=== PATIENT | male | born 1945 | race Hispanic/Latino ===

== ENCOUNTER 2020-05-10 06:59 | Inpatient (IN) | payer MEDICARE, OTHER ==
[2020-05-10 08:53] LABS: Troponin I 0.033 ng/mL (< 0.028)
[2020-05-10] MEDS ORDERED: Non-Formulary Item 1 EACH (Tramadol Hcl [Tramadol Hcl Er] 100 MG) PO PRN (10:48)
[2020-05-10] MEDS ORDERED: HumaLOG 300 UNITS/3 ML VIAL SC PRN (10:48)
[2020-05-10] MEDS ORDERED: Dextrose 50% Abboject 50 ML SYRINGE SLOW IVP PRN (10:48)
[2020-05-10] MEDS ORDERED: Ondansetron PF 4 MG/2 ML Vial IVP PRN (10:48)
[2020-05-10] MEDS ORDERED: Artificial Tear Sol 15 ML BOT FS PRN (10:48)
[2020-05-10] MEDS ORDERED: Ondansetron ODT 4 MG TAB PO PRN (10:48)
[2020-05-10] MEDS ORDERED: hydrALAZINE 20 MG/ML VIAL SLOW IVP PRN (10:48)
[2020-05-10] MEDS ORDERED: Acetaminophen 500 MG TAB PO PRN (10:48)
[2020-05-10] MEDS ORDERED: Dextrose 5% in Water 1,000 ML IV PRN (10:48)
[2020-05-10] MEDS ORDERED: Non-Formulary Item 1 EACH (Rosuvastatin Calcium [Crestor] 40 MG) PO SCH (11:00)
[2020-05-10] MEDS ORDERED: Carvedilol 6.25 MG TAB PO SCH (11:30)
[2020-05-10] MEDS ORDERED: Aspirin 81 mg Enteric Coated Tablet PO SCH (11:30)
[2020-05-10] MEDS ORDERED: Potassium Chloride 20 MEQ TAB PO SCH (11:30)
[2020-05-10] MEDS ORDERED: Icosapent Ethyl 1 GM CAPSULE PO SCH (11:30)
[2020-05-10] MEDS ORDERED: Apixaban 5 MG TAB PO SCH (11:30)
[2020-05-10] MEDS ORDERED: metFORMIN 850 MG TAB PO SCH ×2 (11:30→17:00)
[2020-05-10] MEDS ORDERED: Sacubitril 49 MG/Valsartan 51 MG TABLET PO SCH ×2 (11:30→21:00)
[2020-05-10] MEDS: HumaLOG 300 UNITS/3 ML VIAL SC PRN ×2 (11:38→17:25)
[2020-05-10 11:51] LABS: Troponin I 0.035 ng/mL (< 0.028)
--- NOTE | 2020-05-10 12:50 | HP ---
PRIMARY CARE PROVIDER: Dr. Rocky Thompson. PRIMARY FORENSICS ANALYST: Dr. Castro Monroe. CHIEF COMPLAINT: Shortness of breath. HISTORY OF PRESENT ILLNESS: This is a 74-year-old male, who presents to [facility] Emergency Department in transfer from [place] [facility] after the patient presented complaining of increasing shortness of breath over the last 1 to 2 weeks. The patient denied any travel history fever, chills, productive cough, or exposure history. The patient states he had a similar episode occurred in February 2020, presenting to the emergency room, receiving IV Lasix for heart failure exacerbation and released home. The patient states he was placed on oral Lasix, however, has run out of the medication over the last 1 to 2 weeks. The patient did state that he saw his director of curriculum and instruction, Dr. Monroe, but no specific change to his medication regimen was recommended. The patient admits he has been compliant with his chronic medication regimen and denies any dietary indiscretion. In the emergency room, the patient underwent general evaluation including chest imaging showing pulmonary edema with elevated BNP over 7000. The patient was previously noted with a BNP of 4000 on 03/11/2020. Treatment in the emergency room included IV Lasix 60 mg IV push x1 dose. PAST MEDICAL HISTORY: 1. Congestive heart failure, unknown type. 2. Hyperlipidemia. 3. Chronic obstructive pulmonary disease. 4. Diabetes mellitus type 2. 5. Chronic kidney disease stage 3. 6. Obstructive sleep apnea. 7. Hypertension. PAST SURGICAL HISTORY: 1. Status post left carotid endarterectomy. 2. Status post debridement of the right foot secondarily to osteomyelitis. CURRENT MEDICATIONS: Based on review of electronic medical record, 03/11/2020; 1. Tramadol 100 mg extended release one tablet daily p.r.n. 2. Trelegy one inhalation daily. 3. Vascepa 1 g p.o. b.i.d. 4. Crestor 40 mg p.o. daily. 5. Entresto 97/103 mg p.o. b.i.d. 6. Lantus 15 units subcutaneously b.i.d. 7. Metformin 850 mg p.o. b.i.d. 8. Carvedilol 6.25 mg p.o. b.i.d. 9. Eliquis 5 mg p.o. b.i.d. 10. Artificial Tears p.r.n. 11. Ozempic 0.25 mg subcutaneously weekly. 12. Mirtazapine 15 mg p.o. at bedtime. ALLERGIES: NO KNOWN DRUG ALLERGIES. FAMILY HISTORY: No inheritable diseases per patient report. SOCIAL HISTORY: Resides in [place], [place]. Retired. No current alcohol, tobacco, or illicit drug use. REVIEW OF SYSTEMS: CONSTITUTIONAL: Negative for weight loss or gain, ability to conduct usual activities. SKIN: Negative for rash, itching. EYES: Negative for double vision, pain. ENT/MOUTH: Negative for nose bleeding, neck stiffness, pain, tenderness. CARDIOVASCULAR: Negative for palpitations, dyspnea on exertion, orthopnea. RESPIRATORY: Negative for shortness of breath, wheezing, cough, hemoptysis, fever or night sweats. GASTROINTESTINAL: Negative for poor appetite, abdominal pain, heartburn, nausea, vomiting, constipation, or diarrhea. GENITOURINARY: Negative for urgency, frequency, dysuria, nocturia. MUSCULOSKELETAL: Negative for pain, swelling. NEUROLOGIC/PSYCHIATRIC: Negative for anxiety, depression. ALLERGY/IMMUNOLOGIC: Negative for skin rash, bleeding tendency. Otherwise, negative except as stated per HPI. PHYSICAL EXAMINATION: VITAL SIGNS: On admission, blood pressure 135/77, pulse 63, respiratory rate 20, temperature 96.4 degrees Fahrenheit, O2 saturation 98% on room air. GENERAL APPEARANCE: This is a 74-year-old male, alert and oriented x3, pleasant, responsive, in no acute distress. HEENT: Pupils are equal, round, reactive to light and accommodation. Extraocular muscles are intact. No scleral icterus. No conjunctival injection. Nares patent. OP is clear. Teeth in fair repair. NECK: Supple. No cervical adenopathy. No thyromegaly. No carotid bruits. No JVD appreciated. CERVICAL SPINE: With full active and passive range of motion. No meningeal signs noted. CHEST: Diminished breath sounds in the bases bilaterally with bibasilar crackles. CARDIOVASCULAR: S1, S2 without noted murmur, rub, or gallop. Heart sounds are distant. ABDOMEN: Rounded, soft, nontender, nondistended. Bowel sounds are positive in all 4 quadrants. There is no hepatosplenomegaly. No abdominal bruits. No rebound or guarding appreciated. EXTREMITIES: Warm and dry with fair turgor. No clubbing, cyanosis, or asymmetric edema appreciated. Pulses are palpable distally at the dorsalis pedis, posterior tibial, and popliteal arteries bilaterally. Capillary refill less than 2 seconds. NEUROLOGIC: Cranial nerves 2 through 12 are grossly intact. No focal or lateralizing signs appreciated. PERTINENT LABORATORY AND X-RAY FINDINGS: Sodium 139, potassium 4.2, chloride 107, CO2 of 21, BUN 36, creatinine 2.13, estimated GFR of 31, lactic acid level 1.9, calcium 9.0. Troponin I ranged between 0.026 to 0.043. BNP 7170, previously noted 4103 on 03/11/2020. CBC showed a white blood cell count of 7.4, hemoglobin 10, hematocrit 31, platelet count 134 with 74% neutrophils. D-dimer 0.81. EKG dated 05/10/2020, by my interpretation shows atrial fibrillation with rates in the 80s. Normal R-wave progression noted in the precordial leads. Incomplete left bundle-branch block pattern noted. Left axis deviation. Portable chest x-ray dated 05/10/2020 showed pulmonary edema. ASSESSMENT AND PLAN: 1. Acute on chronic congestive heart failure. The patient will be admitted to the telemetry unit. We will obtain 2D transthoracic echocardiogram to further delineate an accurate ejection fraction. Continue Lasix 40 mg IV b.i.d. Consult Cardiology Service in the a.m. for any further recommendations. Check TSH and magnesium level in the a.m. Serial I's and O's and daily weights. 2. Acute hypoxic respiratory failure secondarily to #1. Continue management as outlined in #1. Oxygen as needed to maintain O2 saturations greater than or equal to 90%. 3. Acute kidney injury on chronic kidney disease stage 3. Avoid nephrotoxic agents and limit contrast exposure. Serial creatinine monitoring. 4. Diabetes mellitus type 2, insulin requiring. Insulin sliding scale for reflexive coverage. Confirm home diabetic regimen. Serial Accu-Cheks before meals and at bedtime. ADA diet. 5. Chronic anticoagulation. Continue Eliquis 5 mg p.o. b.i.d. 6. Prophylaxis. SCDs while in bed. Pepcid 20 mg p.o. b.i.d. 7. Code status is full. Surrogate medical decision maker is the patient's spouse. Job ID: [id number]
[2020-05-10] MEDS: Furosemide 40 MG/4 ML VIAL SLOW IVP SCH (13:30)
--- NOTE | 2020-05-10 15:29 | CON ---
DATE OF CONSULTATION: REASON FOR CONSULTATION: Acute on chronic systolic heart failure. PRIMARY ROLLER SHOP SUPERVISOR: Castro Monroe MD HISTORY OF PRESENT ILLNESS: Mr. Almonte is a pleasant 74-year-old gentleman who has been seen and evaluated by Dr. Castro Monroe. He has a history of cardiomyopathy, status post ICD. He states he recently ran out of his medications. He had lower extremity edema as well as increased shortness of breath. He was given Lasix with marked improvement. No chest pain, pressure, syncope, presyncope, or other associated symptoms. PAST MEDICAL HISTORY: Diabetes mellitus, hypertension, hyperlipidemia, mitral regurgitation, cardiomyopathy, atrial fibrillation, chronic kidney disease, ICD. HOME MEDICATIONS: Include, 1. Spironolactone. 2. Klor-Con. 3. Vascepa. 4. Crestor. 5. Eliquis. 6. Entresto. 7. Coreg. 8. Metformin. PAST SURGICAL HISTORY: Foot surgery. SOCIAL HISTORY: No current tobacco or alcohol use. REVIEW OF SYSTEMS: A 10-point review of systems is reviewed as above, otherwise negative. PHYSICAL EXAMINATION: GENERAL: Patient is a pleasant male who is in no acute distress. The patient appears their stated age. VITAL SIGNS: Blood pressure 155/76, pulse 95, temperature 97.4. NEUROLOGIC: The patient is alert and oriented x3 with no focal neurologic deficits. HEENT: Sclerae without icterus. Mouth has moist mucous membranes with normal pallor. NECK: No JVD. Carotid upstroke brisk. No bruits bilaterally. LUNGS: Crackles noted bilaterally. BACK: No scoliosis or kyphosis. CARDIAC: Regular rate and rhythm with normal S1 and S2. No S3 or S4 noted. No significant rubs, murmurs, thrills, or gallops noted throughout the precordium. PMI is not displaced. There is no parasternal heave. ABDOMEN: Soft, nontender, nondistended. No peritoneal signs present. No hepatosplenomegaly. No abnormal striae. EXTREMITIES: 2+ femoral and 2+ dorsalis pedis pulses. No cyanosis, clubbing, or edema. SKIN: No gross abnormalities. PERTINENT LABORATORIES: Troponin 0.033. CO2 of 21; creatinine 2.13, which is up from 1.68. BNP of 7169. IMPRESSION: 1. Acute on chronic systolic heart failure. 2. Atrial fibrillation. 3. Status post implantable cardioverter defibrillator. RECOMMENDATIONS: Continue Eliquis in addition to aspirin and carvedilol. Continue Lasix IV b.i.d. Consider increasing if [id number] response or add Zaroxolyn. Given renal insufficiency, we would discontinue metformin due to potential for lactic acidosis. Further recommendations per Dr. Castro Monroe in a.m. Job ID: [id number]
[2020-05-10] MEDS: Icosapent Ethyl 1 GM CAPSULE PO SCH (17:00)
[2020-05-10] MEDS ORDERED: ICOSAPENT ETHYL 1 GM PO SCH (17:00)
[2020-05-10] MEDS ORDERED: Non-Formulary Item 1 EACH (Sacubitril/Valsartan [Entresto 97 Mg-103 Mg Tablet] 1 EACH) PO SCH (21:00)
[2020-05-10] MEDS ORDERED: Famotidine 20 MG TAB PO SCH (21:00)
[2020-05-10] MEDS: Mirtazapine 15 MG TAB PO SCH (21:34)
[2020-05-10] MEDS: Famotidine 20 MG TAB PO SCH (21:34)
[2020-05-10] MEDS: Apixaban 5 MG TAB PO SCH (21:34)
[2020-05-10] MEDS: Carvedilol 6.25 MG TAB PO SCH (21:36)
[2020-05-11 04:36] LABS: #Eosinphils 0.1 thou/uL (0.0-0.7); #Lymphocytes 1.8 thou/uL (1.20-3.40); #Neutrophils 5.3 thou/uL (1.40-6.50); %Basophils 0.1 % (0.0-1.0); %Eosinophils 1.4 % (0.0-10.0); %Lymphocytes 21.7 % (21.0-51.0); %Monocytes 11.8 % (0.0-10.0); %Neutrophils 65.1 % (42.0-75.0); Hemoglobin 11.5 g/dL (14.0-18.0); Mean Corpuscular HGB CONC 32.6 g/dL (32.0-36.0); Mean Corpuscular Hemoglobin 29.6 pg (27.0-31.0); Mean Corpuscular Volume 90.7 fL (78.0-98.0); Mean Platelet Volume 9.6 fL (7.4-10.4); Platelet Count 186 thou/uL (130-400); RBC Distribution Width 13.3 % (11.5-14.5); Red Blood Cell (RBC) Count 3.87 mill/uL (4.70-6.10); White Blood Cell (WBC) Count 8.1 thou/uL (4.8-10.8)
[2020-05-11 05:00] LABS: Anion Gap 13 mmol/L (10-20); BUN (Urea Nitrogen) 36 mg/dL (8.4-25.7); Calc. Creatinine Clearance 32 mL/min (70-130); Calcium 9.5 mg/dL (7.8-10.44); Carbon Dioxide 22 mmol/L (23-31); Chloride 104 mmol/L (98-107); Estimated GFR-MDRD 35; Glucose 153 mg/dL (83-110); Magnesium 1.7 mg/dL (1.6-2.6); Potassium 3.4 mmol/L (3.5-5.1); Sodium 136 mmol/L (136-145)
[2020-05-11] MEDS: Furosemide 40 MG/4 ML VIAL SLOW IVP SCH (05:15)
[2020-05-11 05:21] VITALS: BMI 20.2
--- NOTE | 2020-05-11 08:03 | PDOC.HOSPP ---
- Subjective Encounter Date: 05/11/20 Encounter Time: 08:01 Subjective: much better, SOB resolved - Objective Vital Signs & Weight: Vital Signs (12 hours) Temp Pulse Resp BP BP Pulse Ox 05/11/20 03:50 98.1 F 90 24 H 136/81 100 05/11/20 00:27 97 05/10/20 21:36 114/54 L 05/10/20 21:24 97.9 F 78 20 114/54 L 97 Weight Weight 132 lb 12.8 oz I&O: 05/10/20 05/11/20 05/12/20 06:59 06:59 06:59 Intake Total 1240 Output Total 4120 Balance -2880 Result Diagrams: 05/11/20 04:19 05/11/20 04:19 Additional Labs: Accuchecks 05/11/20 05/10/20 05/10/20 05:31 20:04 16:29 POC Glucose 153 H 177 H 172 H 05/10/20 11:34 POC Glucose 267 H Hospitalist ROS - Medication Medications: Active Medications Generic Name Dose Route Start Last Admin Trade Name Freq PRN Reason Stop Dose Admin Apixaban 5 mg 05/10/20 21:00 05/10/20 21:34 Eliquis PO 5 mg BID DEV Administration Carvedilol 6.25 mg 05/10/20 21:00 05/10/20 21:36 Coreg PO Not Given BID DEV Famotidine 20 mg 05/10/20 21:00 05/10/20 21:34 Pepcid PO 20 mg 2100 DEV Administration Furosemide 40 mg 05/10/20 14:00 05/11/20 05:15 Lasix SLOW IVP 40 mg 0600,1400 DEV Administration Insulin Human Lispro 0 units 05/10/20 10:48 05/10/20 17:25 Humalog SC 2 unit .MILD SLIDING SCALE PRN Administration Mild Correctional Scale Mirtazapine 15 mg 05/10/20 21:00 05/10/20 21:34 Remeron PO 15 mg HS DEV Administration Miscellaneous Medication 1 gm 05/10/20 17:00 05/10/20 17:00 Vascepa PO 1 gm BID-WM DEV Administration Sacubitril/Valsartan 2 tab 05/10/20 21:00 05/10/20 21:34 Entresto 49 Mg-51 Mg Tablet PO 2 tab BID DEV Administration - Exam General Appearance: awake alert Neck: no JVD Heart: no murmur, irregular Respiratory: CTAB Gastrointestinal: soft, non-tender, normal bowel sounds Extremities: no edema Hosp A/P (1) Acute on chronic systolic (congestive) heart failure Code(s): I50.23 - ACUTE ON CHRONIC SYSTOLIC (CONGESTIVE) HEART FAILURE Status : Acute (2) COPD (chronic obstructive pulmonary disease) Status: Chronic Qualifiers: Emphysema type: unspecified (3) Afib Code(s): I48.91 - UNSPECIFIED ATRIAL FIBRILLATION Status: Chronic (4) Diabetes Code(s): E11.9 - TYPE 2 DIABETES MELLITUS WITHOUT COMPLICATIONS Status: Chronic Qualifiers: Diabetes mellitus type: type 2 Diabetes mellitus longterm insulin use: with intermission coordinator use Diabetes mellitus complication status: with kidney complications Diabetes mellitus complication detail: with chronic kidney disease Chronic kidney disease stage: stage 3 (moderate) Qualified Code(s): E11.22 - Type 2 diabetes mellitus with diabetic chronic kidney disease; N18.3 - Chronic kidney disease, stage 3 (moderate); Z79.4 - shelter (current) use of insulin (5) HTN (hypertension) Code(s): I10 - ESSENTIAL (PRIMARY) HYPERTENSION Status: Chronic Qualifiers: Hypertension type: essential hypertension Qualified Code(s): I10 - Essential (primary) hypertension - Plan transition lasix to po cont coreg/entresto hold mtformin, cont accu/ss/insulin anticipate early discharge
[2020-05-11] MEDS ORDERED: Spironolactone 25 MG TAB PO SCH (08:45)
[2020-05-11] MEDS ORDERED: Non-Formulary Item 1 EACH (Fluticasone/Umeclidin/Vilanter [Trelegy Ellipta 100-62.5-25] 1 IH SCH (09:00)
[2020-05-11] MEDS ORDERED: traMADol HCl 50 MG TAB PO PRN (09:00)
[2020-05-11] MEDS: Potassium Chloride 20 MEQ TAB PO SCH (09:32)
[2020-05-11] MEDS: Aspirin 81 mg Enteric Coated Tablet PO SCH (09:33)
[2020-05-11] MEDS: Apixaban 5 MG TAB PO SCH ×2 (09:33→21:48)
[2020-05-11] MEDS: predniSONE 20 MG TAB PO SCH (09:33)
[2020-05-11] MEDS: Carvedilol 6.25 MG TAB PO SCH ×2 (09:33→21:49)
[2020-05-11] MEDS: Sacubitril 49 MG/Valsartan 51 MG TABLET PO SCH ×2 (09:33→21:49)
[2020-05-11] MEDS: Icosapent Ethyl 1 GM CAPSULE PO SCH ×2 (09:34→17:10)
[2020-05-11] MEDS: Insulin Glargine 17 UNITS in Pre-Filled Syringe 1 EACH SC SCH (09:34)
[2020-05-11] MEDS: Furosemide 20 MG TAB PO SCH (09:38)
[2020-05-11] MEDS: HumaLOG 300 UNITS/3 ML VIAL SC PRN ×3 (12:09→21:50)
[2020-05-11 12:27] LABS: SARS-CoV-2 MS2 Positive; SARS-CoV-2 N Gene Negative; SARS-CoV-2 S Gene Negative; SARS-CoV-2 by NAA Not Detected (NotDetected); SARS-CoV-2 orf1ab Negative
[2020-05-11] MEDS ORDERED: Mometasone 100 MCG/PUFF (1 INHALER) INH SCH (18:30)
[2020-05-11] MEDS ORDERED: Rosuvastatin 20 MG TAB PO SCH (21:00)
[2020-05-11] MEDS: Famotidine 20 MG TAB PO SCH (21:48)
[2020-05-11] MEDS: Mirtazapine 15 MG TAB PO SCH (21:49)
[2020-05-12] MEDS ORDERED: Spironolactone 25 MG TAB PO SCH (08:00)
[2020-05-12] MEDS: Apixaban 5 MG TAB PO SCH ×2 (09:05→20:50)
[2020-05-12] MEDS: Furosemide 20 MG TAB PO SCH (09:05)
[2020-05-12] MEDS: Aspirin 81 mg Enteric Coated Tablet PO SCH (09:05)
[2020-05-12] MEDS: Carvedilol 6.25 MG TAB PO SCH ×2 (09:05→20:50)
[2020-05-12] MEDS: predniSONE 20 MG TAB PO SCH (09:05)
[2020-05-12] MEDS: Potassium Chloride 20 MEQ TAB PO SCH (09:05)
[2020-05-12] MEDS: Sacubitril 49 MG/Valsartan 51 MG TABLET PO SCH (09:06)
[2020-05-12] MEDS: Insulin Glargine 17 UNITS in Pre-Filled Syringe 1 EACH SC SCH (09:07)
--- NOTE | 2020-05-12 09:16 | PDOC.HOSPP ---
- Subjective Encounter Date: 05/12/20 Encounter Time: 09:14 Subjective: no sob or edema, comfortable - Objective Vital Signs & Weight: Vital Signs (12 hours) Temp Pulse Resp BP BP Pulse Ox 05/12/20 07:04 97.6 F 82 18 110/55 L 96 05/12/20 04:00 97.9 F 78 17 101/56 L 94 L 05/11/20 21:49 116/54 L 05/11/20 21:43 97.4 F L 95 20 116/54 L 98 Weight Weight 132 lb 11.2 oz I&O: 05/11/20 05/12/20 05/13/20 06:59 06:59 06:59 Intake Total 1240 720 Output Total 4120 850 Balance -2880 -130 Result Diagrams: 05/11/20 04:19 05/11/20 04:19 Additional Labs: Accuchecks 05/12/20 05/11/20 05/11/20 05:46 20:16 16:07 POC Glucose 152 H 361 H 210 H 05/11/20 10:27 POC Glucose 340 H Hospitalist ROS - Medication Medications: Active Medications Generic Name Dose Route Start Last Admin Trade Name Freq PRN Reason Stop Dose Admin Apixaban 5 mg 05/10/20 21:00 05/12/20 09:05 Eliquis PO 5 mg BID DEV Administration Aspirin 81 mg 05/11/20 09:00 05/12/20 09:05 Ecotrin PO Not Given DAILY DEV Carvedilol 6.25 mg 05/10/20 21:00 05/12/20 09:05 Coreg PO 6.25 mg BID DEV Administration Famotidine 20 mg 05/10/20 21:00 05/11/20 21:48 Pepcid PO 20 mg 2100 DEV Administration Furosemide 20 mg 05/11/20 09:00 05/12/20 09:05 Lasix PO 20 mg QAM DEV Administration Insulin Glargine 17 units/ 0.17 mls @ 0 mls/hr 05/11/20 09:00 05/12/20 09:07 Miscellaneous Medication SC 0.17 mls QAM DEV Administration Insulin Human Lispro 0 units 05/10/20 10:48 05/11/20 21:50 Humalog SC 6 unit .MILD SLIDING SCALE PRN Administration Mild Correctional Scale Mirtazapine 15 mg 05/10/20 21:00 05/11/20 21:49 Remeron PO 15 mg HS DEV Administration Miscellaneous Medication 1 gm 05/10/20 17:00 05/11/20 17:10 Vascepa PO 1 gm BID-WM DEV Administration Trelegy Ellipta 100- 0 each 05/12/20 09:00 05/12/20 09:06 62.5-25 INH 1 each DAILY DEV Administration Potassium Chloride 20 meq 05/11/20 09:00 05/12/20 09:05 K-Dur PO 20 meq DAILY DEV Administration Prednisone 20 mg 05/11/20 08:00 05/12/20 09:05 Prednisone PO 20 mg QAM-WM DEV Administration Rosuvastatin Calcium 40 mg 05/11/20 21:00 05/11/20 21:49 Crestor PO 40 mg MoThFr@2100 DEV Administration Sacubitril/Valsartan 1 tab 05/11/20 09:00 05/12/20 09:06 Entresto 49 Mg-51 Mg Tablet PO 1 tab BID DEV Administration Spironolactone 25 mg 05/12/20 08:00 05/12/20 09:05 Aldactone PO 25 mg QAM-WM DEV Administration - Exam General Appearance: awake alert Neck: no JVD Heart: RRR Respiratory: CTAB Gastrointestinal: soft, normal bowel sounds Extremities: no edema Hosp A/P (1) Acute on chronic systolic (congestive) heart failure Code(s): I50.23 - ACUTE ON CHRONIC SYSTOLIC (CONGESTIVE) HEART FAILURE Status : Acute (2) COPD (chronic obstructive pulmonary disease) Status: Chronic Qualifiers: Emphysema type: unspecified (3) Afib Code(s): I48.91 - UNSPECIFIED ATRIAL FIBRILLATION Status: Chronic Qualifiers: Atrial fibrillation type: unspecified Qualified Code(s): I48.91 - Unspecified atrial fibrillation (4) Diabetes Code(s): E11.9 - TYPE 2 DIABETES MELLITUS WITHOUT COMPLICATIONS Status: Chronic Qualifiers: Diabetes mellitus type: type 2 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 insulin use: with correction use Diabetes mellitus complication status: with kidney complications Diabetes mellitus complication detail: with chronic kidney disease Chronic kidney disease stage: stage 3 (moderate) Qualified Code(s): E11.22 - Type 2 diabetes mellitus with diabetic chronic kidney disease; N18.3 - Chronic kidney disease, stage 3 (moderate); Z79.4 - rodent exterminator (current) use of insulin (5) HTN (hypertension) Code(s): I10 - ESSENTIAL (PRIMARY) HYPERTENSION Status: Chronic Qualifiers: Hypertension type: essential hypertension Qualified Code(s): I10 - Essential (primary) hypertension - Plan continue lasix to po cont coreg/entresto hold mtformin, cont accu/ss/insulin discuss with Dr Monore
[2020-05-12 09:19] LABS: Anion Gap 15 mmol/L (10-20); BUN (Urea Nitrogen) 49 mg/dL (8.4-25.7); Calc. Creatinine Clearance 23 mL/min (70-130); Calcium 9.3 mg/dL (7.8-10.44); Carbon Dioxide 22 mmol/L (23-31); Chloride 101 mmol/L (98-107); Estimated GFR-MDRD 26; Glucose 290 mg/dL (83-110); Potassium 3.7 mmol/L (3.5-5.1); Sodium 134 mmol/L (136-145)
[2020-05-12] MEDS: Icosapent Ethyl 1 GM CAPSULE PO SCH ×2 (09:42→16:32)
[2020-05-12] MEDS ORDERED: Sodium Chloride 0.45% 1,000 ML IV SCH (10:45)
[2020-05-12] MEDS: HumaLOG 300 UNITS/3 ML VIAL SC PRN ×2 (12:43→17:25)
[2020-05-12] MEDS: Famotidine 20 MG TAB PO SCH (20:50)
[2020-05-12] MEDS: Mirtazapine 15 MG TAB PO SCH (20:51)
[2020-05-13] MEDS: Icosapent Ethyl 1 GM CAPSULE PO SCH (08:52)
[2020-05-13] MEDS: predniSONE 20 MG TAB PO SCH (08:52)
[2020-05-13] MEDS: Apixaban 5 MG TAB PO SCH (08:53)
[2020-05-13] MEDS: Potassium Chloride 20 MEQ TAB PO SCH (08:54)
[2020-05-13] MEDS: Furosemide 20 MG TAB PO SCH (08:54)
[2020-05-13] MEDS: Carvedilol 6.25 MG TAB PO SCH (08:54)
[2020-05-13] MEDS: Aspirin 81 mg Enteric Coated Tablet PO SCH (08:57)
[2020-05-13] MEDS: Insulin Glargine 17 UNITS in Pre-Filled Syringe 1 EACH SC SCH (08:57)
[2020-05-13 09:24] LABS: Hemoglobin 11.4 g/dL (14.0-18.0); Platelet Count 193 thou/uL (130-400)
[2020-05-13 09:45] LABS: Anion Gap 13 mmol/L (10-20); BUN (Urea Nitrogen) 52 mg/dL (8.4-25.7); Calc. Creatinine Clearance 27 mL/min (70-130); Calcium 9.2 mg/dL (7.8-10.44); Carbon Dioxide 20 mmol/L (23-31); Chloride 106 mmol/L (98-107); Estimated GFR-MDRD 32; Glucose 364 mg/dL (83-110); Potassium 3.9 mmol/L (3.5-5.1); Sodium 135 mmol/L (136-145)
--- NOTE | 2020-05-13 11:06 | DIS ---
DATE OF ADMISSION: 05/10/2020 DATE OF DISCHARGE: 05/13/2020 PRIMARY CARE PROVIDER: Rocky Thompson MD DISPOSITION: Discharged home. FINAL DIAGNOSES: 1. [id number] systolic heart failure. 2. Acute respiratory failure with hypoxia. 3. Acute renal failure. 4. Diabetes mellitus type 2 with nephropathy. 5. Long-term use of anticoagulant. 6. Dyslipidemia. 7. Atrial fibrillation. 8. Cardiomyopathy. DISCHARGE MEDICATIONS: 1. Eliquis 5 mg p.o. twice a day. 2. Lantus 17 units subcu daily. 3. Vascepa 1 g b.i.d. 4. Lasix 20 mg a day. 5. Trelegy Ellipta 1 inhalation daily. 6. Coreg 6.25 mg twice a day. 7. Ozempic 0.25 mg subcu weekly. 8. Crestor 40 mg a day. 9. Potassium chloride 20 mEq a day. 10. Remeron 15 mg a day. 11. Prednisone 20 mg a day. 12. Aldactone 25 mg a day. 13. Entresto 49/51 twice a day. 14. Ecotrin 81 mg a day. ALLERGIES: NO KNOWN DRUG ALLERGIES. DIET: Diabetic. No added salt. CODE STATUS: Full. PENDING AT TIME OF DISCHARGE: Nothing. CONSULTATIONS: Dr. Roni Aj, Cardiology for Dr. Monroe. PROCEDURES: None. HOSPITAL COURSE: The patient was admitted through [place] [facility] to the Hospitalist Service with shortness of breath. Portable chest x-ray dated on 05/10 showed pulmonary edema. EKG, atrial fibrillation. BNP was 7170. Creatinine was 2.13. The patient was given Lasix IV in the ER, O2 supplementation. His had significant diuresis. His creatinine on admission is 1.90 and on discharge 2.07. He is not acidotic. Interestingly, COVID done is negative. The patient's vital signs are stable. Chest is clear. He is asymptomatic, wandering around the room, and wishes to go home. Dr. Monroe has cleared him to go home on current medications. He is to be followed up by Dr. Thompson in 3 to 7 days, Dr. Monroe in 2 to 3 weeks. His echocardiogram once again revealed his EF is 15% to 20%. He does have an ICD. Job ID: [id number]
[2020-05-13 11:24] VITALS: BP 111/74; TEMP 97.4
[2020-05-13] MEDS: HumaLOG 300 UNITS/3 ML VIAL SC PRN (12:00)
[2020-05-13] MEDS ORDERED: Sacubitril 49 MG/Valsartan 51 MG TABLET PO SCH (21:00)
[2020-05-14] MEDS ORDERED: Spironolactone 25 MG TAB PO SCH (08:00)
--- NOTE | 2020-05-20 15:24 | EKG ---
Test Reason : Blood Pressure : / mmHG Vent. Rate : 074 BPM Atrial Rate : 030 BPM P-R Int : 000 ms QRS Dur : 120 ms QT Int : 426 ms P-R-T Axes : 000 -02 182 degrees QTc Int : 472 ms Demand pacemaker; interpretation is based on intrinsic rhythm Wide QRS rhythm with frequent Premature ventricular complexes and Fusion complexes Lateral infarct , age undetermined Abnormal ECG Confirmed by ROSALINA HUBBARD DO ([id number]), editor farm journal ROMINA RAMÍREZ ([id number]) on 05/20/2020 3:23:47 PM Referred By: Confirmed By:ROSALINA HUBBARD DO
== END 2020-05-13 13:15 | disposition home or self-care (01) | DRG 291 ==
LOC: ERS 06:59 → 2NO 07:40
PROVIDERS: ADMIT Family Medicine; ATTEND Family Medicine
DX: I13.0 Hypertensive heart and chronic kidney disease with heart failure and stage 1 through stage 4 chronic kidney disease, or unspecified chronic kidney disease (principal); I50.23 Acute on chronic systolic (congestive) heart failure; J96.01 Acute respiratory failure with hypoxia; N17.9 Acute kidney failure, unspecified; Z20.828 Contact with and (suspected) exposure to other viral communicable diseases; I42.9 Cardiomyopathy, unspecified; E78.5 Hyperlipidemia, unspecified; I48.91 Unspecified atrial fibrillation; J44.9 Chronic obstructive pulmonary disease, unspecified; N18.3 Chronic kidney disease, stage 3 (moderate); E11.22 Type 2 diabetes mellitus with diabetic chronic kidney disease; G47.33 Obstructive sleep apnea (adult) (pediatric); I34.0 Nonrheumatic mitral (valve) insufficiency; Z79.01 Long term (current) use of anticoagulants; Z79.899 Other long term (current) drug therapy; Z79.4 Long term (current) use of insulin; Z95.810 Presence of automatic (implantable) cardiac defibrillator
CPT/HCPCS: 36415; 36416; 80048; 83735; 83880; 84443; 85014; 85018; 85025; 85049; 87635; 93005; 93306; 93798; J1815; J1940; J7512; U0003

== ENCOUNTER 2020-08-16 00:51 | Inpatient (IN) | payer MEDICARE ==
[2020-08-16] MEDS ORDERED: Vancomycin 1 GM/200 ML BAG ONE (01:41)
[2020-08-16 01:47] LABS: Actual Bicarbonate (HCO3a) 12.7 mEq/L (22-28); Analyzer IN Cardio ER; Base Excess (BEa) -10.6 mEq/L (-2.0 to +3.0); Calcium, Ionized (arterial) 1.13 mmol/L (1.12-1.30); Carboxyhemoglobin (COHb) 0.3 gm% (0.0-3.0); Hemoglobin (Hb) 11.3 g/dL (14.0-18.0); O2 Tension (PaO2), arterial 239.5 mmHg (> 70.0); Potassium - ABG Lab 4.52 mmol/L (3.70-5.30); pH, Arterial 7.38 (7.35-7.45)
[2020-08-16 01:57] LABS: ALV-art Gradient 389.085 mmHg (0-20); CO2 Tension 21.9 mmHg (35.0-45.0); Puncture Site LRA
[2020-08-16 02:40] LABS: SARS-CoV-2 NAA Rapid Test Not Detected (NotDetected)
[2020-08-16] MEDS ORDERED: Ondansetron PF 4 MG/2 ML Vial ONE (03:23)
[2020-08-16] MEDS ORDERED: Morphine 2 MG/ML VIAL ONE (03:23)
[2020-08-16] MEDS ORDERED: Ondansetron PF 4 MG/2 ML Vial IVP PRN (03:26)
[2020-08-16] MEDS ORDERED: Acetaminophen 325 MG TAB PO PRN (03:26)
[2020-08-16] MEDS ORDERED: Ondansetron ODT 4 MG TAB PO PRN (03:26)
[2020-08-16] MEDS ORDERED: Guaifenesin DM 100-10/5 ML UDCUP PO PRN (03:26)
[2020-08-16] MEDS ORDERED: HYDROcodone/Acetaminophen 5/325 mg Tablet PO PRN (03:26)
[2020-08-16] MEDS ORDERED: Acetaminophen 650 MG Suppository PR PRN (03:26)
[2020-08-16] MEDS ORDERED: Lorazepam 2 MG/ML VIAL ONE (03:40)
--- NOTE | 2020-08-16 04:36 | PDOC.HHP ---
Hospitalist HPI - History of Present Illness dyspnea History of Present Illness: Case of an 74y/o male with a pmhx of atrial fibrillation on elliquis, chf, copd, dm and hld who comes to hospital due to 1 day of severe dyspnea. apparently patient was on his usual state of health until 1 day ago when he started with worsening cogh dyspnea for which he was brought to hospital for evaluation. patient was found on severe respiratory distress for which he was placed on bipap with worsening of his symptoms, he became hypoxic and disoriented and was change to high flow and air lyfted here for further evaluation. at arrival patient was found to be septic with and initial LA of 7 for which sepsis bundles where initialted and hospitalit was called for further evaluation and management. during my evaluation patient was ox3, he denies any fever chills or malaise. does refers a recent hospitalization 2 weeks ago due to decompensated heart failure. Hospitalist ROS - Review of Systems All other systems reviewed; all pertinent +/- noted in HPI/Subj Hospitalist History - Past Medical History Renal/: reports: Chronic renal insuff (Stage III) Endocrine: reports: Diabetes - Past Surgical History Other Surgical History: endarderectomy - Family History Family History: reports: cardiac disorder, hypertension - Social History Smoking Status: Former smoker Alcohol: reports: None Drugs: reports: none Living Situation: With Family - Exam General Appearance: ill appearing Eye: PERRL, anicteric sclera ENT: normocephalic atraumatic, no oropharyngeal lesions Neck: supple, symmetric, no JVD, no thyromegaly Heart: irregular Heart - other findings: tachycardic Respiratory: rhonchi, tachypneic, wheezes Gastrointestinal: soft, non-tender, non-distended, normal bowel sounds Extremities: no cyanosis, no clubbing, no edema Skin: normal turgor, no lesions, no rashes Neurological: cranial nerve grossly intact, normal sensation to touch, no weakness Musculoskeletal: normal tone, normal strength, no muscle wasting Psychiatric: normal affect, normal behavior, A&O x 3 Hospitalist Results - Labs Lab results: ABG pH 7.38 (7.35-7.45) 08/16/20 01:45 ABG pCO2 21.9 mmHg (35.0-45.0) L* 08/16/20 01:45 ABG pO2 239.5 mmHg (> 70.0) H 08/16/20 01:45 Lactic Acid 4.4 mmol/L (0.5-2.2) H* 08/16/20 01:18 Hospitalist H&P A/P - Problem (1) COPD exacerbation Code(s): J44.1 - CHRONIC OBSTRUCTIVE PULMONARY DISEASE W (ACUTE) EXACERBATION Status: Acute (2) Acute respiratory failure with hypoxia Code(s): J96.01 - ACUTE RESPIRATORY FAILURE WITH HYPOXIA Status: Acute (3) Acute worsening of stage 3 chronic kidney disease Code(s): N18.30 - CHRONIC KIDNEY DISEASE, STAGE 3 UNSPECIFIED Status: Acute (4) Afib Code(s): I48.91 - UNSPECIFIED ATRIAL FIBRILLATION Status: Chronic Qualifiers: Atrial fibrillation type: unspecified Qualified Code(s): I48.91 - Unspecified atrial fibrillation (5) Diabetes Code(s): E11.9 - TYPE 2 DIABETES MELLITUS WITHOUT COMPLICATIONS Status: Chronic Qualifiers: Diabetes mellitus type: type 2 Diabetes mellitus fdc insulin use: with fdc use Diabetes mellitus complication status: with kidney complications Diabetes mellitus complication detail: with chronic kidney disease Chronic kidney disease stage: stage 3 (moderate) Qualified Code(s): E11.22 - Type 2 diabetes mellitus with diabetic chronic kidney disease; N18.3 - Chronic kidney disease, stage 3 (moderate); 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.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 (6) HTN (hypertension) Code(s): I10 - ESSENTIAL (PRIMARY) HYPERTENSION Status: Chronic Qualifiers: Hypertension type: essential hypertension Qualified Code(s): I10 - Essential (primary) hypertension (7) Severe sepsis Code(s): A41.9 - SEPSIS, UNSPECIFIED ORGANISM; R65.20 - SEVERE SEPSIS WITHOUT SEPTIC SHOCK Status: Acute (8) Pneumonia Code(s): J18.9 - PNEUMONIA, UNSPECIFIED ORGANISM Status: Acute - Plan Plan: patient with the stated pmhx who presents with acute respiratory failure secondary to pneumonia acute respiratory failure - currently on high flow, did not tolerate bipap - discussed with patient is full code - ortho assistant consulted - wean as tolerated severe sepsis secondary to pneumonia - sepsis bundles started, cultures taken ivfs given started on borad spectrum abx - currently on vancomycin + cefepime + levaquin - bnp at 11k, will give bundles and hold ivfs - initial LA at 7 f/u 4 continue to trend - id consulted - corner for covid due to recent hospitalization, initial test negative, will send inflmmation markers and maitain insolation until seen by ID - atrial fibrillation - on elliquis, continue when able - holding medication that might decreased b/p, currently borderline low, not requiring pressors copd exacerbation - secondary to pneumonia, possible covid 19 - o2 supplementation - solumedrol q 6hr DM ss+ acc chf / hld / htn - continue home meds when more stable
[2020-08-16] MEDS ORDERED: Dextrose 5% in Water 1,000 ML IV PRN (04:52)
[2020-08-16] MEDS ORDERED: Dextrose 50% Abboject 50 ML SYRINGE SLOW IVP PRN (04:52)
[2020-08-16] MEDS ORDERED: HumaLOG 300 UNITS/3 ML VIAL SC PRN ×2 (04:52→20:53)
[2020-08-16 05:02] LABS: Lactic Acid 2.7 mmol/L (0.5-2.2)
[2020-08-16 05:10] LABS: ALT (SGPT) 267 U/L (8-55); AST (SGOT) 360 U/L (5-34); Albumin 3.1 g/dL (3.4-4.8); Alkaline Phosphatase 213 U/L (40-110); Anion Gap 19 mmol/L (10-20); BUN (Urea Nitrogen) 44 mg/dL (8.4-25.7); Bilirubin, Total 1.3 mg/dL (0.2-1.2); Calc. Creatinine Clearance 0 mL/min (70-130); Calcium 7.8 mg/dL (7.8-10.44); Carbon Dioxide 12 mmol/L (23-31); Chloride 107 mmol/L (98-107); Estimated GFR-MDRD 21; Globulin 2.7 g/dL (2.4-3.5); Glucose 374 mg/dL (83-110); Potassium 4.6 mmol/L (3.5-5.1); Protein, Total 5.8 g/dL (5.8-8.1); Sodium 133 mmol/L (136-145)
[2020-08-16 05:52] VITALS: BMI 21.9
[2020-08-16 06:15] LABS: Anisocytosis SLIGHT = 6-15 cells (100X) (0-5/hpf); Band 23 % (5-11); Elliptocytes SLIGHT = 2-5 cells (100X) (0-1/hpf); Hemoglobin 10.4 g/dL (14.0-18.0); Lymphocytes 1 % (21-51); MDiff Complete? YES; Mean Corpuscular HGB CONC 32.4 g/dL (32.0-36.0); Mean Corpuscular Hemoglobin 29.2 pg (27.0-31.0); Mean Corpuscular Volume 90.3 fL (78.0-98.0); Mean Platelet Volume 12.4 fL (7.4-10.4); Monocytes 2 % (0-10); Neutrophil 74 % (42-75); Platelet Count 93 thou/uL (130-400); Platelet Morphology Comment Appears Decreased; RBC Distribution Width 16.6 % (11.5-14.5); Red Blood Cell (RBC) Count 3.57 mill/uL (4.70-6.10); White Blood Cell (WBC) Count 16.7 thou/uL (4.8-10.8)
[2020-08-16] MEDS: methylPREDNISolone Sod Succ 40 MG VIAL IVP SCH ×4 (07:33→23:23)
[2020-08-16] MEDS ORDERED: methylPREDNISolone Sod Succ 40 MG VIAL ONE ×2 (07:34→13:10)
[2020-08-16] MEDS ORDERED: Cefepime 2 GM VIAL ONE (08:13)
[2020-08-16] MEDS ORDERED: Famotidine/PF 20 mg/2ml Vial ONE (08:13)
[2020-08-16] MEDS: Cefepime 2 GM in Sodium Chloride 0.9% 100 ML IVPB SCH (08:19)
[2020-08-16] MEDS: Famotidine/PF 20 mg/2ml Vial SLOW IVP SCH (08:19)
[2020-08-16] MEDS ORDERED: Nitroglycerin 0.4 MG TAB (25 Tab Bottle) SL PRN (09:21)
[2020-08-16] MEDS ORDERED: Bisacodyl 10 MG SUPP PR PRN (09:34)
[2020-08-16] MEDS ORDERED: Sodium Bicarbonate 150 MEQ in Dextrose 5% in Water 1,000 ML IV SCH (09:45)
[2020-08-16 10:09] LABS: Lactic Acid 1.8 mmol/L (0.5-2.2)
[2020-08-16 10:15] LABS: Anion Gap 19 mmol/L (10-20); BUN (Urea Nitrogen) 46 mg/dL (8.4-25.7); Calc. Creatinine Clearance 21 mL/min (70-130); Carbon Dioxide 11 mmol/L (23-31); Chloride 108 mmol/L (98-107); Estimated GFR-MDRD 21; Glucose 376 mg/dL (83-110); Potassium 4.7 mmol/L (3.5-5.1); Sodium 133 mmol/L (136-145)
[2020-08-16 10:17] LABS: Troponin I 0.075 ng/mL (< 0.028)
[2020-08-16] MEDS ORDERED: Insulin Glargine 10 UNITS in Pre-Filled Syringe 1 EACH SC SCH ×2 (12:30→21:00)
[2020-08-16] MEDS ORDERED: Hydrocortisone Sod Succ/PF 100 mg/2 ml Vial ONE ×2 (13:08)
--- NOTE | 2020-08-16 15:13 | CON ---
DATE OF CONSULTATION: HISTORY OF PRESENT ILLNESS: A 74-year-old gentleman from [place], presented to the ER last night with shortness of breath, cough, and fever. X-ray shows a right-sided infiltrate. He was in the [place] ER, sats are 96% on high-flow, blood pressure 95/69. His coronavirus serology was negative. Right femoral vein was cannulated. He was transferred here on BiPAP, in high flow. In ER, he is chomping on his food, said he is feeling better, less short of breath. PAST MEDICAL HISTORY: Severe COPD, hypertension, congestive heart failure, multiple admissions in the hospital, sleep apnea, diabetes. PREVIOUS SURGERIES: Left carotid, orthopedic surgery, right foot. HOME MEDICATIONS: 1. Ozempic. 2. Entresto. 3. Crestor. 4. Insulin. 5. Trelegy. 6. Coreg 25. 7. Eliquis 2.5. 8. Tylenol. 9. He is now started on vancomycin, Levaquin, and Maxipime. ALLERGIES: NONE. TOBACCO: Former smoker. REVIEW OF SYSTEMS: Ten-point negative. PHYSICAL EXAMINATION: VITAL SIGNS: Temperature 98, pulse 93, respiratory rate 24, sats 95% on high-flow, 55 flow rate, 55% FiO2, blood pressure 103/73. CHEST: Decreased breath sounds. No wheezing. CARDIAC: Normal S1, S2. No gallops. ABDOMEN: No masses. LABORATORY DATA: White count 16,000, H and H 10 and 32, platelet count is low at 93 which is new. He has big left shift 23 bands. PO2 is 239, pCO2 21, pH 7.38 on high-flow. Renal function; creatinine is 2.9, sodium 133. AST, ALT all elevated. IMPRESSION: 1. Right-sided pneumonia. 2. Chronic obstructive pulmonary disease exacerbation. 3. Sepsis syndrome. 4. Previous osteomyelitis. 5. Previous congestive heart failure. 6. Sleep apnea. 7. Elevated LFT. 8. Cardiomyopathy. PLAN: I agree with present treatment. PT, supportive care. Downsize to low-flow O2 when he stabilizes. Consultation note, 70 minutes, 50% direct patient care. Job ID: [id number]
--- NOTE | 2020-08-16 17:25 | CON ---
DATE OF CONSULTATION: 08/16/2020 HISTORY OF PRESENT ILLNESS: Mr. Almonte is a 74-year-old white male, who was admitted for shortness of breath. Initial evaluation suggested that he may have pneumonia suggestive of a right pulmonary infiltrate. However, this patient has also known history of cardiomyopathy/CHF with an EF of 15% to 20%. He has been previously as an outpatient on Entresto and spironolactone. Furthermore, the patient has been evaluated by the [facility] in [place] and at one time was being considered for a cardiac transplantation, but according to the patient, he is no longer being considered as a candidate. We are now being consulted for his acute kidney injury. REVIEW OF SYSTEMS: Positive for shortness of breath. Denies any fever. No chest pain. No syncopal episode. Decreased appetite. Decreased energy level. No productive cough. No diarrhea. No constipation. No dysuria. No urinary frequency. No abdominal pain. No joint pains. No new skin rash. HOME MEDICATIONS: Include the following; 1. Spironolactone 25 mg p.o. b.i.d. 2. Insulin glargine 25 units subcu b.i.d. 3. Metformin 850 mg p.o. b.i.d. 4. Entresto 97/103 one tab p.o. b.i.d. 5. Carvedilol 12.5 mg p.o. b.i.d. 6. Ozempic 0.5 mg subcu daily. 7. Vascepa 1 g p.o. b.i.d. 8. Trelegy Ellipta as directed. 9. Eliquis 5 mg p.o. b.i.d. 10. Crestor 40 mg tab q.h.s. PAST MEDICAL HISTORY: 1. Recently, now admitted for presumed right lower lobe pneumonia. 2. Congestive heart failure/cardiomyopathy. 3. Acute kidney injury. 4. Type 2 diabetes mellitus. 5. COPD. 6. Peripheral vascular disease. 7. Hyperlipidemia. 8. Hypertension. PAST SURGICAL HISTORY: Status post AICD placement, status post cardiac cath, status post left carotid endarterectomy. SOCIAL HISTORY: The patient is x3. He lives with his in [place]. No natural children, but two adopted children. No history of smoking. Alcohol, rare. 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 Education, GED. No blood transfusion. No IV drug abuse. Sedentary lifestyle. ALLERGIES: NONE. TRAUMA: Status post right foot fracture. IMMUNIZATION: Up-to-date. HOSPITALIZATIONS: Please see past medical history. FAMILY HISTORY: No family history of ESRD. PHYSICAL EXAMINATION: VITAL SIGNS: Blood pressure is noted at 103/73, heart rate 100, respiratory rate 20, O2 saturation 96% on high-flow O2, and temperature 98.5. GENERAL: The patient is awake, in moderate respiratory distress. SKIN: Decreased turgor. HEENT: He has slightly pale conjunctivae. Anicteric sclerae. No neck mass. No carotid bruits. No JVD. CHEST: No deformities. LUNGS: Clear breath sounds. HEART: Normal sinus rhythm. No murmur. No gallops. No rubs. ABDOMEN: Globular, soft, nontender, no masses. EXTREMITIES: No edema. No deformities. NEUROLOGICAL: Awake, oriented to 3 spheres. Moving all extremities. No tremors. No asterixis. No ataxia. LABORATORY DATA: Of August 16, 2020, COVID-19 RNA not detected. Sodium 133, potassium 4.7, chloride 108, carbon dioxide 11, BUN 46, creatinine 2.97, glucose is 376, calcium 8.0. Troponin I 0.090. Further review of his creatinine shows the following; on August 15, 2020, creatinine 3.32. On August 13, 2020, creatinine 2.47. On July 27, 2019, creatinine 2.66. On May 12, 2020, creatinine 2.47. On March 11, 2020, creatinine 1.9. On January 31, 2020, creatinine 1.36. On December 27, 2019, creatinine 1.1. Chest x-ray of August 15, 2020, showed interval increasing infiltrate in the right base-presumptive pneumonia. ASSESSMENT AND PLAN: 1. Acute kidney injury - Consider hemodynamically-mediated renal dysfunction. The patient has history of congestive heart failure/cardiomyopathy with a low EF of 15% to 20%. He has been on spironolactone and Entresto recently. We will hold off those medications. We will give one time dose of Lasix at 80 mg IV. a. There is no indication for any dialytic intervention with this patient. For the moment, agree with current management. Continue to optimize hemodynamics. Diurese as needed. Awaiting Cardiology input. 2. Right lung infiltrate/pneumonia - On empiric IV antibiotics. His overall prognosis remains guarded. Continue supportive care. Recheck CBC and basic metabolic in a.m. Job ID: [id number] MTDD
[2020-08-16] MEDS ORDERED: Furosemide 40 MG/4 ML VIAL SLOW IVP SCH (18:00)
[2020-08-16 18:29] LABS: Anion Gap 21 mmol/L (10-20); BUN (Urea Nitrogen) 52 mg/dL (8.4-25.7); Calc. Creatinine Clearance 19 mL/min (70-130); Calcium 8.5 mg/dL (7.8-10.44); Carbon Dioxide 11 mmol/L (23-31); Chloride 104 mmol/L (98-107); Estimated GFR-MDRD 19; Glucose 462 mg/dL (83-110); Potassium 5.1 mmol/L (3.5-5.1); Sodium 131 mmol/L (136-145)
[2020-08-16] MEDS: Mometasone 200 MCG/Formoterol 5 MCG 120 PUFF INHALER INH SCH (18:54)
[2020-08-16 19:25] LABS: Bacteria/HPF 3+ HPF (None Seen); Bilirubin Negative (Negative); Blood, Urine 2+ (Negative); Clarity Extra Turbid (Clear); Glucose, Urine (Dipstick) Greater than 1000 mg/dL (Negative); Ketone, Urine Negative (Negative); Leukocyte Negative Leu/uL (Negative); Nitrite Negative (Negative); Protein, Urine (Dipstick) 100 mg/dL (Neg-Trace); RBC/HPF 0-3 HPF (0-3); Specific Gravity, Urine 1.014 (1.002-1.036); Urobilinogen Normal mg/dL (Less than 2); pH, Urine 5.5 (5.0-9.0)
--- NOTE | 2020-08-16 20:23 | CON ---
DATE OF CONSULTATION: PRIMARY DRAWER IN: Minesh Mittal MD REASON FOR CONSULTATION: Congestive heart failure and pneumonia. HISTORY OF PRESENT ILLNESS: Mr. Almonte is a very pleasant 74-year-old gentleman with history of chronic systolic heart failure. He was transferred from an outlying institution with severe respiratory distress and also found to have pneumonia. He has been transferred here for further therapy. The patient says he is feeling better now. He has received some antibiotics and has received oxygen. The patient has a previous history of congestive heart failure. He was seen here in April of this year with acute on chronic systolic heart failure, cardiomyopathy, and previous defibrillator implantation. PAST MEDICAL HISTORY: Cardiomyopathy, atrial fibrillation, and chronic kidney disease. MEDICATIONS: Include, 1. Valsartan/sacubitril (Entresto) twice a day. 2. Carvedilol 12.5 mg twice a day. 3. Spironolactone 25 mg a day. 4. Apixaban 5 mg twice a day. ALLERGIES: NONE KNOWN. SOCIAL HISTORY: No alcohol or tobacco. REVIEW OF SYSTEMS: CONSTITUTIONAL: Positive for weakness and fatigue. VISION: No changes. HEARING: No changes. PULMONARY: Positive for shortness of breath. Denies fever. CARDIAC: No chest pain. GASTROINTESTINAL: No nausea, vomiting, or diarrhea. PHYSICAL EXAMINATION: GENERAL: This is a pleasant elderly gentleman, in no distress. VITAL SIGNS: Blood pressure is low at 103/73, pulse 100. LUNGS: Few basilar rales. No wheezing. CARDIAC: Normal S1, normal S2. ABDOMEN: Soft and nontender. EXTREMITIES: No clubbing or cyanosis. There is mild edema. PERTINENT LABORATORY DATA: His creatinine is 2.97, which is near his baseline. Troponin 0.090. BNP is extremely high at 11,380, but is usually high; last time, it was 8722, earlier this month. The chest x-ray does show an infiltrate in the right lower lung field. ASSESSMENT: 1. Congestive heart failure systolic, chronic. The ejection fraction is 15% to 20%. 2. Previous defibrillator implantation. 3. Pneumonia. PLAN: 1. Hold Entresto and Coreg with low blood pressure presently. Would resume Coreg tomorrow to help control heart rate, which is in the 90s. 2. Antibiotics. 3. Give him Lasix tonight and tomorrow. We will follow with you during this hospitalization. Job ID: [id number]
[2020-08-16] MEDS ORDERED: Insulin Regular 300 UNITS/3 ML VIAL SC PRN (20:57)
[2020-08-16] MEDS ORDERED: Insulin Glargine 15 UNITS in Pre-Filled Syringe 1 EACH SC SCH (21:00)
[2020-08-16] MEDS: Insulin Glargine 25 UNITS in Pre-Filled Syringe 1 EACH SC SCH (21:37)
[2020-08-16] MEDS: Sodium Bicarbonate Tab 325 MG TAB PO SCH (21:38)
[2020-08-16] MEDS: Apixaban 2.5 MG TAB PO SCH (21:38)
[2020-08-17] MEDS ORDERED: Vancomycin 1 GM in Premix Bag 1 BAG IVPB SCH (03:00)
[2020-08-17 04:58] LABS: ALT (SGPT) 390 U/L (8-55); AST (SGOT) 331 U/L (5-34); Albumin 3.3 g/dL (3.4-4.8); Alkaline Phosphatase 167 U/L (40-110); Anion Gap 16 mmol/L (10-20); BUN (Urea Nitrogen) 59 mg/dL (8.4-25.7); Bilirubin, Total 0.8 mg/dL (0.2-1.2); CRP (Inflammatory) 6.51 mg/dL (= or < 0.5); Calc. Creatinine Clearance 18 mL/min (70-130); Calcium 8.8 mg/dL (7.8-10.44); Carbon Dioxide 17 mmol/L (23-31); Chloride 105 mmol/L (98-107); Estimated GFR-MDRD 18; Globulin 2.9 g/dL (2.4-3.5); Glucose 131 mg/dL (83-110); Potassium 4.3 mmol/L (3.5-5.1); Protein, Total 6.2 g/dL (5.8-8.1); Sodium 134 mmol/L (136-145)
[2020-08-17 05:35] LABS: Band 7 % (5-11); Burr Cells SLIGHT = 2-5 cells (100X) (0-1/hpf); Elliptocytes SLIGHT = 2-5 cells (100X) (0-1/hpf); Hemoglobin 10.4 g/dL (14.0-18.0); Lymphocytes 4 % (21-51); MDiff Complete? YES; Mean Corpuscular HGB CONC 32.2 g/dL (32.0-36.0); Mean Corpuscular Hemoglobin 28.9 pg (27.0-31.0); Mean Corpuscular Volume 89.8 fL (78.0-98.0); Mean Platelet Volume 12.8 fL (7.4-10.4); Monocytes 2 % (0-10); Neutrophil 87 % (42-75); Platelet Count 91 thou/uL (130-400); Platelet Morphology Comment Appears Decreased; RBC Distribution Width 16.8 % (11.5-14.5); Red Blood Cell (RBC) Count 3.58 mill/uL (4.70-6.10); White Blood Cell (WBC) Count 11.5 thou/uL (4.8-10.8)
[2020-08-17] MEDS: methylPREDNISolone Sod Succ 40 MG VIAL IVP SCH (06:07)
[2020-08-17 06:19] LABS: Vancomycin, Random 11.5 ug/mL (See Comment)
[2020-08-17] MEDS ORDERED: Mometasone 100 MCG/PUFF (1 INHALER) INH SCH (06:30)
[2020-08-17] MEDS: Mometasone 200 MCG/Formoterol 5 MCG 120 PUFF INHALER INH SCH ×2 (07:20→18:37)
--- NOTE | 2020-08-17 08:26 | RAD ---
PORTABLE CHEST: HISTORY: CCU followup. COMPARISON: 08/15/2020. FINDINGS/IMPRESSION: A small right effusion and confluent infiltrate and/or atelectasis in the right lower lobe again note d. Cardiomegaly with mild vascular engorgement. AICD leads unchanged. Not significantly changed fr om yesterday. POS: AGW
[2020-08-17] MEDS: Apixaban 2.5 MG TAB PO SCH ×2 (08:49→20:14)
[2020-08-17] MEDS: Cefepime 2 GM in Sodium Chloride 0.9% 100 ML IVPB SCH (08:49)
[2020-08-17] MEDS: Sodium Bicarbonate Tab 325 MG TAB PO SCH ×3 (08:49→20:14)
[2020-08-17] MEDS: Furosemide 40 MG/4 ML VIAL SLOW IVP SCH (08:50)
--- NOTE | 2020-08-17 08:57 | PRG ---
DATE OF SERVICE: SUBJECTIVE: Mr. Almonte is a 74-year-old male who was admitted for shortness of breath. He was initially thought to have pneumonia. For that reason, he was being empirically treated with IV antibiotics. On admission, he may have also superimposed CHF. For that reason, as per suggestion by Cardiology, he has been initiated on diuretics. His breathing is much better this morning. He also ruled out for COVID-19 infection. We are following him up for his acute kidney injury. OBJECTIVE: VITAL SIGNS: Blood pressure 100/81, heart rate 103, respiratory rate 28, O2 saturation 100% on high-flow. GENERAL: The patient is awake, comfortable, not in overt distress. SKIN: Adequate turgor. HEENT: He has slightly pale conjunctivae. Anicteric sclerae. NECK: No neck mass. No carotid bruits. No JVD. CHEST: No deformities. LUNGS: Clear breath sounds. HEART: Normal sinus rhythm. No murmur. No gallops. No rubs. ABDOMEN: Globular, soft, nontender, no masses. EXTREMITIES: No edema. MEDICATIONS: August 17, 2020, reviewed. LABORATORY DATA: August 17, 2020; white count 11.5, hemoglobin 10.4, sodium 134, potassium 4.3, chloride 105, carbon dioxide 17, BUN 59, creatinine 3.37. AST 331, ALT 390. Procalcitonin 3.67. ASSESSMENT/PLAN: 1. Shortness of breath-multifactorial etiology. congestive heart failure with a possible pneumonia. Currently, on IV Lasix and antibiotics. 2. Acute kidney injury. This is secondary to hemodynamically-mediated renal dysfunction. Creatinine slightly high at 3.37 and yesterday this was 3.21. This may be a reflection of the underlying congestive heart failure/diuretics. Management is continue supportive care. Continue IV diuretics. There is no indication for any emergent hemodialysis at the present time with this patient. Overall, prognosis remains guarded. 3. Recheck CBC and basic metabolic in a.m. Job ID: [id number]
[2020-08-17] MEDS: Famotidine/PF 20 mg/2ml Vial SLOW IVP SCH (08:59)
[2020-08-17] MEDS ORDERED: Insulin Glargine 10 UNITS in Pre-Filled Syringe 1 EACH SC SCH (09:00)
[2020-08-17] MEDS ORDERED: Vancomycin HCl 1.25 GM in Sodium Chloride 0.9% 250 ML 250 ML IVPB SCH (09:00)
--- NOTE | 2020-08-17 09:52 | PDOC.HOSPP ---
- Subjective Encounter Date: 08/17/20 Encounter Time: 09:48 Subjective: less sob, no chest pain - Objective Vital Signs & Weight: Vital Signs (12 hours) Temp Pulse Resp Pulse Ox 08/17/20 07:31 96.4 F L 08/17/20 07:18 103 H 28 H 100 08/17/20 03:58 97.1 F L 08/16/20 23:31 97.3 F L Weight Weight 144 lb 7 oz Most Recent Monitor Data Heart Rate from ECG 103 NIBP 100/81 NIBP BP-Mean 87 Respiration from ECG 28 SpO2 100 I&O: 08/16/20 08/17/20 08/18/20 06:59 06:59 06:59 Intake Total 240 Output Total 950 Balance -710 Result Diagrams: 08/17/20 04:03 08/17/20 04:03 Additional Labs: Accuchecks 08/17/20 08/17/20 08/17/20 08:19 04:04 00:19 POC Glucose 218 H 126 H 202 H 08/16/20 08/16/20 08/16/20 20:13 18:31 13:17 POC Glucose 359 H 458 H 349 H Hospitalist ROS - Medication Medications: Active Medications Generic Name Dose Route Start Last Admin Trade Name Freq PRN Reason Stop Dose Admin Albuterol/Ipratropium 3 ml 08/16/20 15:00 08/17/20 07:18 Ipratropium/Albuterol Sulfate 3 Ml Neb NEB 3 ml [id number] DEV Administration Apixaban 2.5 mg 08/16/20 21:00 08/17/20 08:49 Apixaban 2.5 Mg Tab PO 2.5 mg BID DEV Administration Famotidine 20 mg 08/16/20 09:00 08/17/20 08:59 Famotidine/Pf 20 Mg/2ml Vial SLOW IVP 20 mg Q24HR DEV Administration Furosemide 40 mg 08/17/20 09:00 08/17/20 08:50 Furosemide 40 Mg/4 Ml Vial SLOW IVP 40 mg DAILY DEV Administration Cefepime HCl 2 gm/ Sodium 100 mls @ 200 mls/hr 08/16/20 08:00 08/17/20 08:49 Chloride IVPB 100 mls 0800 DEV Administration Insulin Glargine 25 units/ 0.25 mls @ 0 mls/hr 08/16/20 21:00 08/16/20 21:37 Miscellaneous Medication SC 0.25 mls HS DEV Administration Insulin Human Regular 0 units 08/16/20 20:57 08/16/20 21:37 Insulin Regular 300 Units/3 Ml Vial SC 5 unit .BEDTIME SLIDING SC PRN Administration Bedtime Correctional Scale Methylprednisolone Sodium Succinate 40 mg 08/16/20 06:00 08/17/20 06:07 Methylprednisolone Sod Succ 40 Mg Vial IVP 40 mg Q6HR DEV Administration Mometasone Furoate/Formoterol Fumar 2 puff 08/16/20 18:30 08/17/20 07:20 Mometasone 200 Mcg/Formoterol 5 Mcg 120 Puff Inhaler INH 2 puff BID-RT DEV Administration Sodium Bicarbonate 650 mg 08/16/20 21:00 08/17/20 08:49 Sodium Bicarbonate Tab 325 Mg Tab PO 650 mg TID DEV Administration - Exam General Appearance: awake alert Neck: no JVD Heart: RRR, no murmur Respiratory - other findings: decreased BS, rales RLL field Gastrointestinal: soft, non-tender, normal bowel sounds Extremities: no edema Hosp A/P (1) Pneumonia Code(s): J18.9 - PNEUMONIA, UNSPECIFIED ORGANISM Status: Acute (2) Severe sepsis Code(s): A41.9 - SEPSIS, UNSPECIFIED ORGANISM; R65.20 - SEVERE SEPSIS WITHOUT SEPTIC SHOCK Status: Acute (3) Acute on chronic systolic (congestive) heart failure Code(s): I50.23 - ACUTE ON CHRONIC SYSTOLIC (CONGESTIVE) HEART FAILURE Status: Acute (4) Acute respiratory failure with hypoxia Code(s): J96.01 - ACUTE RESPIRATORY FAILURE WITH HYPOXIA Status: Acute (5) Acute worsening of stage 3 chronic kidney disease Code(s): N18.30 - CHRONIC KIDNEY DISEASE, STAGE 3 UNSPECIFIED Status: Acute (6) Anemia in chronic kidney disease Code(s): N18.9 - CHRONIC KIDNEY DISEASE, UNSPECIFIED; D63.1 - ANEMIA IN CHRONIC KIDNEY DISEASE Status: Acute (7) Cardiomyopathy Code(s): I42.9 - CARDIOMYOPATHY, UNSPECIFIED Status: Acute (8) Current use of shelter anticoagulation Code(s): Z79.01 - PENITENTIARY (CURRENT) USE OF ANTICOAGULANTS Status: Acute (9) Afib Code(s): I48.91 - UNSPECIFIED ATRIAL FIBRILLATION Status: Chronic Qualifiers: Atrial fibrillation type: unspecified Qualified Code(s): I48.91 - Unspecified atrial fibrillation - Plan cont O2. titrate as possible await Blood C&S cont iv antibx selected hme mds accu/ss monitor renal fcn, hold metformin
[2020-08-17] MEDS: Insulin Glargine 25 UNITS in Pre-Filled Syringe 1 EACH SC SCH ×2 (10:10→20:37)
--- NOTE | 2020-08-17 11:11 | PRG ---
DATE OF SERVICE: 08/17/2020 SUBJECTIVE: Durga Almonte, this morning, is better, awake, alert, responsive. OBJECTIVE: VITAL SIGNS: Temperature 97. He is on 30% FiO2 of high flow rate, blood pressure 100/81, respiratory rate 18. CHEST: No wheezing, no crackles. CARDIAC: Normal S1, S2. ABDOMEN: No masses. LABORATORY DATA: White count , platelet count is 91, 81 segs, 7 bands, creatinine is 3.37. IMPRESSION: Respiratory failure, abnormal LFT, right middle lobe pneumonia. Cultures so far negative. We will try and down schedule his antibiotics, adjusted for his renal failure. P.o. prednisone. Supportive care, PT. We will continue to follow. He can be transferred out of the MICU on a monitored bed. Job ID: [id number]
--- NOTE | 2020-08-17 11:56 | PRG ---
DATE OF SERVICE: 08/17/2020 SUBJECTIVE: Gage is feeling much better. He is breathing better today. OBJECTIVE: VITAL SIGNS: His blood pressure is 129/84, pulse is in the 90 to 100 range. LUNGS: Clear anteriorly and laterally. CARDIAC: Normal S1, normal S2. No new murmur, rub, or gallop. ASSESSMENT: 1. Pneumonia. 2. Renal failure, creatinine is 3.37. 3. Congestive heart failure, systolic, acute on chronic. PLAN: 1. Resume carvedilol. 2. Continue to hold orderbird AG for now. Job ID: [id number]
[2020-08-17] MEDS: Insulin Regular 300 UNITS/3 ML VIAL SC PRN ×2 (13:04→17:01)
[2020-08-17] MEDS: Carvedilol 6.25 MG TAB PO SCH (17:00)
[2020-08-17] MEDS: Rosuvastatin 20 MG TAB PO SCH (20:15)
[2020-08-18 06:52] LABS: Anion Gap 16 mmol/L (10-20); BUN (Urea Nitrogen) 67 mg/dL (8.4-25.7); Calc. Creatinine Clearance 18 mL/min (70-130); Calcium 8.9 mg/dL (7.8-10.44); Carbon Dioxide 19 mmol/L (23-31); Chloride 106 mmol/L (98-107); Estimated GFR-MDRD 18; Glucose 104 mg/dL (83-110); Potassium 3.8 mmol/L (3.5-5.1); Sodium 137 mmol/L (136-145)
[2020-08-18 06:53] LABS: Anion Gap 16 mmol/L (10-20); BUN (Urea Nitrogen) 66 mg/dL (8.4-25.7); Calc. Creatinine Clearance 17 mL/min (70-130); Calcium 8.9 mg/dL (7.8-10.44); Carbon Dioxide 19 mmol/L (23-31); Chloride 106 mmol/L (98-107); Estimated GFR-MDRD 18; Glucose 105 mg/dL (83-110); Potassium 3.8 mmol/L (3.5-5.1); Sodium 137 mmol/L (136-145)
[2020-08-18 06:57] LABS: Mean Corpuscular HGB CONC 32.3 g/dL (32.0-36.0); Mean Corpuscular Volume 89.9 fL (78.0-98.0); Mean Platelet Volume 12.9 fL (7.4-10.4); Platelet Count 95 thou/uL (130-400); Red Blood Cell (RBC) Count 3.78 mill/uL (4.70-6.10); White Blood Cell (WBC) Count 14.1 thou/uL (4.8-10.8)
[2020-08-18] MEDS ORDERED: Vancomycin HCl 1.25 GM in Sodium Chloride 0.9% 250 ML 250 ML IVPB SCH (07:00)
[2020-08-18] MEDS: Mometasone 200 MCG/Formoterol 5 MCG 120 PUFF INHALER INH SCH ×2 (08:01→19:36)
[2020-08-18 08:05] LABS: #Lymphocytes 0.4 thou/uL (1.20-3.40); #Monocytes 0.6 thou/uL (0.11-0.59); %Basophils 0.3 % (0.0-1.0); %Lymphocytes 2.8 % (21.0-51.0); %Monocytes 4.5 % (0.0-10.0); %Neutrophils 92.4 % (42.0-75.0); Anisocytosis SLIGHT = 6-15 cells (100X) (0-5/hpf); Elliptocytes SLIGHT = 2-5 cells (100X) (0-1/hpf); MDiff Complete? YES; Platelet Morphology Comment Appears Decreased; Poikilocytosis MODERATE=16-30 cells (100X) (0-5/hpf); Polychromasia SLIGHT = 2-3 cells (100X) (0-2/hpf); Schistocytes SLIGHT = 2-5 cells (100X) (0-1/hpf)
[2020-08-18] MEDS: Insulin Glargine 25 UNITS in Pre-Filled Syringe 1 EACH SC SCH ×2 (08:39→21:59)
[2020-08-18] MEDS: Famotidine/PF 20 mg/2ml Vial SLOW IVP SCH (08:41)
[2020-08-18] MEDS: predniSONE 20 MG TAB PO SCH (08:41)
[2020-08-18] MEDS: Carvedilol 6.25 MG TAB PO SCH ×2 (08:41→16:06)
[2020-08-18] MEDS: Cefepime 2 GM in Sodium Chloride 0.9% 100 ML IVPB SCH (08:43)
[2020-08-18] MEDS: Sodium Bicarbonate Tab 325 MG TAB PO SCH ×3 (08:47→21:59)
[2020-08-18] MEDS: Apixaban 2.5 MG TAB PO SCH ×2 (08:47→21:59)
--- NOTE | 2020-08-18 10:02 | PRG ---
DATE OF SERVICE: 08/18/2020 SUBJECTIVE: Mr. Almonte is a 74-year-old male, who was admitted for shortness of breath. This was multifactorial in etiology, which included a possible pneumonia and CHF. He is being currently diuresed and tolerating said diuretic treatment. Please note, Entresto is currently on hold. His breathing is much better this morning. OBJECTIVE: VITAL SIGNS: Blood pressure 129/72, heart rate 96, respiratory rate 24, temperature 97.5, O2 saturation 97%. GENERAL: The patient is noted to be awake, alert, comfortable, not in overt distress. SKIN: Adequate turgor. HEENT: He has pinkish conjunctivae. Anicteric sclerae. No neck mass. No carotid bruits. No JVD. CHEST: No deformities. LUNGS: Decreased breath sounds. HEART: Normal sinus rhythm. No murmur. No gallops. No rubs. ABDOMEN: Globular, soft, nontender. No masses. EXTREMITIES: No edema. No deformities. MEDICATIONS: Of August 18, 2020, reviewed. LABORATORY DATA: Of August 18, 2020: White count 14.1, hemoglobin is 11. Sodium 137, potassium 3.8, chloride 106, carbon dioxide 19, BUN 67, creatinine 3.41, GFR 18 mL/minute, calcium 8.9. ASSESSMENT AND PLAN: 1. Shortness of breath - multifactorial etiology, combination of pneumonia with congestive heart failure. Continue current diuretic regimen. Shortness of breath is improving. 2. Acute kidney injury/chronic renal failure - superimposed prerenal azotemia. Relatively stable creatinine. No indication for any dialytic intervention. Continue supportive care. Adjust diuretics as needed. 3. Borderline anemia. We will continue to observe. Recheck CBC and basic metabolics in a.m. Job ID: [id number]
--- NOTE | 2020-08-18 10:39 | PRG ---
DATE OF SERVICE: 08/18/2020 SUBJECTIVE: Joe Almonte, male, DNR, doing better this morning. OBJECTIVE: VITAL SIGNS: Temperature 97, pulse 96, blood pressure 129/72, saturation 97% on 2 L. CHEST: Denies any difficulty breathing, coughing, or wheezing. LABORATORY DATA: White count 14,000. So far all cultures are negative. Creatinine is 3, BUN 67. ASSESSMENT: Respiratory failure, chronic obstructive pulmonary disease, pneumonia, former smoker, renal failure. PLAN: He is doing better. I may consider switching him over to oral medication. Hopefully, he can be discharged home in the next 24 to 48 hours if he remains stable. Job ID: [id number]
[2020-08-18] MEDS: Furosemide 40 MG/4 ML VIAL SLOW IVP SCH (10:56)
--- NOTE | 2020-08-18 11:07 | PDOC.HOSPP ---
- Subjective Encounter Date: 08/18/20 Encounter Time: 11:05 Subjective: awake, pleasnt, no distress - Objective Vital Signs & Weight: Vital Signs (12 hours) Temp Pulse Resp BP BP BP Pulse Ox 08/18/20 10:31 101 H 20 100 08/18/20 08:41 129/72 08/18/20 08:18 97.5 F L 96 24 H 129/72 97 08/18/20 08:03 100 08/18/20 08:02 97 20 100 08/18/20 04:00 97.1 F L 89 20 149/73 H 20 L 08/18/20 00:00 98.6 F 102 H 18 109/69 100 Weight Weight 141 lb 11.2 oz Most Recent Monitor Data Heart Rate from ECG 95 NIBP 126/78 NIBP BP-Mean 94 Respiration from ECG 25 SpO2 100 I&O: 08/17/20 08/18/20 08/19/20 06:59 06:59 06:59 Intake Total 240 Output Total 950 Balance -710 Result Diagrams: 08/18/20 06:12 08/18/20 06:12 Additional Labs: Accuchecks 08/18/20 08/17/20 08/17/20 05:30 19:55 16:31 POC Glucose 109 H 166 H 204 H 08/17/20 12:50 POC Glucose 204 H Hospitalist ROS - Medication Medications: Active Medications Generic Name Dose Route Start Last Admin Trade Name Freq PRN Reason Stop Dose Admin Albuterol/Ipratropium 3 ml 08/16/20 15:00 08/18/20 10:31 Ipratropium/Albuterol Sulfate 3 Ml Neb NEB 3 ml [id number] DEV Administration Apixaban 2.5 mg 08/16/20 21:00 08/18/20 08:47 Apixaban 2.5 Mg Tab PO Not Given BID DEV Carvedilol 6.25 mg 08/17/20 17:00 08/18/20 08:41 Carvedilol 6.25 Mg Tab PO Not Given BID- DEV Famotidine 20 mg 08/16/20 09:00 08/18/20 08:41 Famotidine/Pf 20 Mg/2ml Vial SLOW IVP Not Given Q24HR DEV Furosemide 40 mg 08/17/20 09:00 08/18/20 10:56 Furosemide 40 Mg/4 Ml Vial SLOW IVP 40 mg DAILY DEV Administration Insulin Glargine 25 units/ 0.25 mls @ 0 mls/hr 08/16/20 21:00 08/17/20 20:37 Miscellaneous Medication SC Not Given HS DEV Insulin Glargine 25 units/ 0.25 mls @ 0 mls/hr 08/17/20 09:00 08/18/20 08:39 Miscellaneous Medication SC Not Given QAM DEV Insulin Human Regular 0 units 08/16/20 19:23 08/17/20 17:01 Insulin Regular 300 Units/3 Ml Vial SC 6 units .AGGRESSIVE SLIDING PRN Administration Aggressive Correctional Scale Insulin Human Regular 0 units 08/16/20 20:57 08/16/20 21:37 Insulin Regular 300 Units/3 Ml Vial SC 5 unit .BEDTIME SLIDING SC PRN Administration Bedtime Correctional Scale Levofloxacin 250 mg 08/18/20 06:00 08/18/20 05:41 Levofloxacin 250 Mg Tab PO 08/25/20 06:01 250 mg 0600 DEV Administration Mometasone Furoate/Formoterol Fumar 2 puff 08/16/20 18:30 08/18/20 08:01 Mometasone 200 Mcg/Formoterol 5 Mcg 120 Puff Inhaler INH 2 puff BID-RT DEV Administration Prednisone 20 mg 08/18/20 08:00 08/18/20 08:41 Prednisone 20 Mg Tab PO 20 mg QAM-WM DEV Administration Rosuvastatin Calcium 40 mg 08/17/20 21:00 08/17/20 20:15 Rosuvastatin 20 Mg Tab PO 40 mg [id number] DEV Administration Sodium Bicarbonate 650 mg 08/16/20 21:00 08/18/20 08:47 Sodium Bicarbonate Tab 325 Mg Tab PO 650 mg TID DEV Administration - Exam General Appearance: awake alert Neck: no JVD Heart: RRR, no murmur Respiratory - other findings: rales R post chest , OW clear Gastrointestinal: soft, normal bowel sounds Extremities: no edema Hosp A/P (1) Pneumonia Code(s): J18.9 - PNEUMONIA, UNSPECIFIED ORGANISM Status: Acute (2) Severe sepsis Code(s): A41.9 - SEPSIS, UNSPECIFIED ORGANISM; R65.20 - SEVERE SEPSIS WITHOUT SEPTIC SHOCK Status: Acute (3) Acute on chronic systolic (congestive) heart failure Code(s): I50.23 - ACUTE ON CHRONIC SYSTOLIC (CONGESTIVE) HEART FAILURE Status: Acute (4) Acute respiratory failure with hypoxia Code(s): J96.01 - ACUTE RESPIRATORY FAILURE WITH HYPOXIA Status: Acute (5) Acute worsening of stage 3 chronic kidney disease Code(s): N18.30 - CHRONIC KIDNEY DISEASE, STAGE 3 UNSPECIFIED Status: Acute (6) Anemia in chronic kidney disease Code(s): N18.9 - CHRONIC KIDNEY DISEASE, UNSPECIFIED; D63.1 - ANEMIA IN CHRONIC KIDNEY DISEASE Status: Acute (7) Cardiomyopathy Code(s): I42.9 - CARDIOMYOPATHY, UNSPECIFIED Status: Acute (8) Current use of [facility] anticoagulation Code(s): Z79.01 - NURSING HOME (CURRENT) USE OF ANTICOAGULANTS Status: Acute (9) Afib Code(s): I48.91 - UNSPECIFIED ATRIAL FIBRILLATION Status: Chronic Qualifiers: Atrial fibrillation type: unspecified Qualified Code(s): I48.91 - Unspecified atrial fibrillation - Plan on po antibx taper O2 as able discuss DC planning meds with Dr Spear
[2020-08-18] MEDS: Rosuvastatin 20 MG TAB PO SCH (21:59)
[2020-08-18] MEDS: Cefdinir 300 MG CAP PO SCH (21:59)
[2020-08-19 07:01] LABS: #Lymphocytes 0.4 thou/uL (1.20-3.40); #Monocytes 0.9 thou/uL (0.11-0.59); #Neutrophils 11.3 thou/uL (1.40-6.50); %Lymphocytes 3.1 % (21.0-51.0); %Monocytes 7.3 % (0.0-10.0); %Neutrophils 89.5 % (42.0-75.0); Hemoglobin 11.7 g/dL (14.0-18.0); Mean Corpuscular HGB CONC 31.7 g/dL (32.0-36.0); Mean Corpuscular Hemoglobin 29.2 pg (27.0-31.0); Mean Platelet Volume 12.6 fL (7.4-10.4); Platelet Count 103 thou/uL (130-400); RBC Distribution Width 17.2 % (11.5-14.5); Red Blood Cell (RBC) Count 4.02 mill/uL (4.70-6.10); White Blood Cell (WBC) Count 12.6 thou/uL (4.8-10.8)
[2020-08-19] MEDS: Mometasone 200 MCG/Formoterol 5 MCG 120 PUFF INHALER INH SCH (07:17)
[2020-08-19 07:18] LABS: Anion Gap 15 mmol/L (10-20); BUN (Urea Nitrogen) 58 mg/dL (8.4-25.7); Calc. Creatinine Clearance 19 mL/min (70-130); Calcium 9.1 mg/dL (7.8-10.44); Carbon Dioxide 21 mmol/L (23-31); Chloride 106 mmol/L (98-107); Estimated GFR-MDRD 19; Glucose 136 mg/dL (83-110); Potassium 3.5 mmol/L (3.5-5.1); Sodium 138 mmol/L (136-145)
[2020-08-19 07:27] VITALS: BP 112/80; TEMP 97.4
--- NOTE | 2020-08-19 09:12 | RAD ---
RADIOGRAPH CHEST 2 VIEW: DATE: 08/19/2020 TIME: 9:05 AM HISTORY: 74-year-old male with dyspnea COMPARISON: 08/17/2020 FINDINGS: The diffuse region of increased attenuation at the right mid and lower lung zones, especially central ly, has improved or resolved on the frontal view. That was probably fluid in the major and minor fissures. The lateral view demonstrates mild blunting of the bilateral posterior costophrenic angles consistent with small bilateral pleural effusions. Cardiomegaly and pulmonary venous congestion remain. Prominent interstitial markings may represent pu lmonary interstitial edema, which appears new or worse. AICD with left-sided generator. No pneumothorax. No new consolidation. IMPRESSION: Congestive heart failure: Cardiomegaly, pulmonary venous congestion, small bilateral pleural effusion s, and probable mild pulmonary interstitial edema.
[2020-08-19] MEDS: Sodium Bicarbonate Tab 325 MG TAB PO SCH ×2 (09:15→14:46)
[2020-08-19] MEDS: Cefdinir 300 MG CAP PO SCH (09:15)
[2020-08-19] MEDS: Apixaban 2.5 MG TAB PO SCH (09:16)
[2020-08-19] MEDS: predniSONE 20 MG TAB PO SCH (09:16)
[2020-08-19] MEDS: Furosemide 40 MG/4 ML VIAL SLOW IVP SCH (09:16)
[2020-08-19] MEDS: Carvedilol 6.25 MG TAB PO SCH (09:16)
[2020-08-19] MEDS: Insulin Glargine 25 UNITS in Pre-Filled Syringe 1 EACH SC SCH (09:17)
[2020-08-19] MEDS: Famotidine/PF 20 mg/2ml Vial SLOW IVP SCH (09:19)
--- NOTE | 2020-08-19 09:23 | PRG ---
DATE OF SERVICE: 08/19/2020 SUBJECTIVE: Mr. Almonte is a 74-year-old white male who was admitted for shortness of breath from CHF. He was started on diuretics and is feeling much better, Cardiology is following. We are following him up for his acute kidney injury on top of his chronic renal failure. His renal function is stabilizing, tolerating the said diuretics. No new complaints today. He is feeling better. He denies any chest pain or shortness of breath. OBJECTIVE: VITAL SIGNS: Blood pressure is 112/80, heart rate 81, respiratory rate 20, temperature 97.4, and O2 saturation 100%. GENERAL: Awake, alert, comfortable, not in distress. SKIN: Adequate turgor. HEENT: Pinkish conjunctivae. Anicteric sclerae. NECK: No neck mass. No carotid bruits. No JVD. CHEST: No deformities. LUNGS: Clear breath sounds. No wheezing. No crackles. HEART: Normal sinus rhythm. No murmurs. No gallops. No rubs. ABDOMEN: Globular, soft, and nontender. No masses. EXTREMITIES: No edema. No deformities. MEDICATIONS: Medications of August 19, 2020, were reviewed. LABORATORY DATA: Laboratories of August 19, 2020; white count 12.6, hemoglobin 11.7, sodium 138, potassium 3.5, chloride 106, carbon dioxide 21, BUN 58, creatinine 3.18, glucose 136, and calcium 9.1. ASSESSMENT AND PLAN: 1. Acute kidney injury on top of his chronic renal failure, superimposed prerenal azotemia secondary to congestive heart failure. He is tolerating current diuretic regimen. He is on decreased dose of Lasix. No indication for any dialytic intervention. Continue supportive care. 2. Chronic renal failure-renal function is nearing baseline. Baseline is about 2.5 most of the time. Continue supportive care. 3. Congestive heart failure, clinically much improved. Cardiology is following. Agree with current management. Recheck basic met and CBC in a.m. Job ID: [id number]
--- NOTE | 2020-08-19 10:06 | PRG ---
DATE OF SERVICE: 08/19/2020 SUBJECTIVE: Durga Almonte this morning is awake, alert, and responsive. He is doing better. His x-ray shows stable findings, cardiomegaly, small pleural effusion, right lower lobe infiltrate improved. OBJECTIVE: VITAL SIGNS: Temperature 97.7, blood pressure 112/80, saturations 100%. CHEST: No wheezing. No crackles. CARDIAC: Normal S1, S2. ABDOMEN: No masses. LABORATORY DATA: Unremarkable except for creatinine 3. ASSESSMENT: Chronic renal failure, congestive heart failure, small infiltrate, chronic obstructive pulmonary disease. PLAN: P.o. antibiotics, p.o. steroids, home any time. Job ID: [id number]
--- NOTE | 2020-08-19 19:44 | CON ---
DATE OF CONSULTATION: 08/19/2020 REASON FOR CONSULTATION: Bacteremia. HISTORY OF PRESENT ILLNESS: A 74-year-old with a history of COPD, ischemic cardiomyopathy with systolic dysfunction and a very low EF 15% to 20% with a defibrillator in place, who has had two previous admissions in April and then one recently in July. July admission was precipitated by increasing dyspnea. He was given supplemental oxygen, diuresis, and he was discharged on Crestor, insulin, Ozempic, inhaler, furosemide, Entresto, Coreg, and Eliquis. The patient was readmitted on August 16 with worsening dyspnea, which developed the day before admission associated with coughing spells with sputum production. He was brought to the emergency room, placed on BiPAP and had to be airlifted to [facility]. Lactate on admission was 7. He was given IV fluids and broad-spectrum antimicrobial coverage. Initial pulse 108, respiratory rate 34, temperature 96.8, O2 saturation 72 on room air, and 84 nonrebreather Ventimask. His O2 saturations remained quite low in the emergency room and then eventually went up to 94. His temperature remained within normal limits. Initial chest x-ray on admission revealed congestive heart failure. White cell count 16,000, hemoglobin 10, platelets 93,000, and 23% bands. Sodium 133, creatinine 2.96, glucose 374, bilirubin 1.3, AST 360, ALT 267, alkaline phosphatase 213, albumin 3.1, lactic acid is 4.4 and decreased to 1.8 the same day few hours later. Urinalysis with 7 to 10 wbc's. SARS-CoV RNA PCR was not detected. One out of three sets of blood cultures yielded Streptococcus pneumoniae with gomez susceptibility to the antimicrobials tested. The patient was treated with cefepime and vancomycin and now he has been switched to cefdinir. The patient is sitting by the bedside, appears well. Denies any headaches. No visual symptoms, sore throat, odynophagia, or dysphagia. Mild dyspnea. No cough. No chest pain. No back pain. No abdominal pain or diarrhea. Voiding in the urinal. His weight has decreased from 144 to 141 over the past 2 days. PAST MEDICAL HISTORY: Ischemic cardiomyopathy EF 15 to 20 with the defibrillator, atrial fibrillation on Eliquis, CHF, systolic dysfunction, COPD, type 2 diabetes, hyperlipidemia, and CKD stage 3. PAST SURGICAL HISTORY: Endarterectomy. FAMILY HISTORY: Hypertension and coronary artery disease. SOCIAL HISTORY: Former smoker. Retired. CURRENT MEDICATION LIST: 1. DuoNeb. 2. Eliquis. 3. Coreg. 4. Omnicef. 5. Robitussin. 6. Insulin. 7. Prednisone. 8. Crestor. ALLERGIES: NONE. PHYSICAL EXAMINATION: VITAL SIGNS: Normal temperature, O2 saturations 95 on room air, BP 112/80, heart rate 106, and respiratory rate 16. SKIN: No areas of skin breakdown. Peripheral IV access. No Fernando catheter. No lymphadenopathy. GENERAL: Awake, alert, and oriented, no distress. Follows commands. HEENT: Ocular movements conjugate. Oral cavity, no [place] teeth. NECK: Supple. No jugular venous distention. LUNGS: Faint basilar crackles. S1 and S2. Regular rate. No S3 or S4. ABDOMEN: Soft, not distended or tender. No ascites. No bladder distention. EXTREMITIES: No joint inflammatory activity. No edema. Pulses 1+ in dorsalis pedis. NEUROLOGIC: Nonfocal. LABORATORY DATA: White cell count 12.6, hemoglobin 11, platelets 103, and 89% neutrophils. Creatinine is up to 3.18. It seems to be trending down after initial increase. ASSESSMENT: Ischemic cardiomyopathy, hyperlipidemia, type 2 diabetes, defibrillator, and streptococcus pneumoniae bacteremia. DISCUSSION: The patient has only one out of two sets positive, so the possibility of endocarditis is less or the possibility of lead colonization. The patient has been transitioned to oral cephalosporins and another 7 days of cefdinir plus pneumococcal vaccine and discharge planning. Job ID: [id number]
--- NOTE | 2020-08-21 08:47 | DIS ---
DATE OF ADMISSION: 08/16/2020 DATE OF DISCHARGE: 08/19/2020 PRIMARY CARE PROVIDER: Rocky Thompson MD DISPOSITION: Discharged home. FINAL DIAGNOSES: 1. Pneumonia, organism unspecified. Suspect pneumococcus. 2. Atrial fibrillation, on chronic anticoagulation. 3. Chronic obstructive pulmonary disease with acute exacerbation. 4. Acute respiratory failure with hypoxia. 5. Lactic acidosis. DISCHARGE MEDICINES: 1. Insulin glargine 25 units subcutaneously twice a day. 2. Vascepa 1 g b.i.d. 3. Trelegy Ellipta 100/62.5/25 one inhalation daily. 4. Eliquis 2.5 mg two twice a day. 5. Crestor 40 mg a day. 6. Levofloxacin 250 mg a day for 7 days. 7. Omnicef 300 mg twice a day for 7 days. 8. Coreg 6.25 mg p.o. b.i.d. 9. Lasix 40 mg p.o. daily. ALLERGIES: NO KNOWN DRUG ALLERGIES. CODE STATUS: Full resuscitation. PENDING AT TIME OF DISCHARGE: Nothing. DIET: Diabetic. HOSPITAL COURSE: The patient with multiple medical problems, long medical history, admitted to the hospital through the emergency room with shortness of breath. He was admitted with a diagnosis of sepsis, pneumonia, acute respiratory failure, COPD exacerbation, chronic kidney disease stage 3 with acute worsening, diabetes, hypertension, started on high-flow O2. Pulmonology was consulted. Started on vancomycin, cefepime, and Levaquin. Cardiology was consulted. He was seen by Dr. David Bowling, Nephrology; Dr. Terrance Yanez, Pulmonology; Dr. Phong Spear, Cardiology. At that time, he was feeling much better when seen by Dr. Spear. He was eating. Dr. Bowling suggested holding spironolactone and Entresto. This was done. Dr. Spear agreed with same. The patient was given IV Lasix during his hospital stay. The patient's renal function initially, creatinine 2.96 with a GFR estimated 21. He also had a lactic acidosis. After stopping Entresto and spironolactone, his creatinine was eventually 3.18. On 08/18/2020, Dr. Yanez transitioned those antibiotics to orally. Today, chest is clear. Blood pressure 112/80, O2 saturation high 90s on room air. Dr. Yanez felt he could be discharged. Dr. Spear agreed. He has requested to see Dr. Thompson in one week for followup and to see Dr. Monroe in followup for his cardiomyopathy and Entresto, which have been held due to blood pressure and high creatinine. He will need a basic metabolic profile at followup. It is also pertinent to note this chest x-ray on 08/19/2020 demonstrated essentially clear lung stokes with a little nonspecific changes; no cardiomegaly, pulmonary edema, or complete pneumonia. Job ID: [id number]
== END 2020-08-19 15:59 | disposition home or self-care (01) | DRG 871 ==
LOC: ERS 00:51 → ERHOLD 02:24 → IMCU/EMU 16:23 → T4-B 08-18 00:30
PROVIDERS: ADMIT Internal Medicine; ATTEND Internal Medicine
DX: A40.3 Sepsis due to Streptococcus pneumoniae (principal); J96.01 Acute respiratory failure with hypoxia; I50.23 Acute on chronic systolic (congestive) heart failure; J18.9 Pneumonia, unspecified organism; R65.20 Severe sepsis without septic shock; J44.1 Chronic obstructive pulmonary disease with (acute) exacerbation; N17.9 Acute kidney failure, unspecified; I13.0 Hypertensive heart and chronic kidney disease with heart failure and stage 1 through stage 4 chronic kidney disease, or unspecified chronic kidney disease; J44.0 Chronic obstructive pulmonary disease with (acute) lower respiratory infection; Z20.828 Contact with and (suspected) exposure to other viral communicable diseases; E11.22 Type 2 diabetes mellitus with diabetic chronic kidney disease; G47.30 Sleep apnea, unspecified; I25.5 Ischemic cardiomyopathy; E11.51 Type 2 diabetes mellitus with diabetic peripheral angiopathy without gangrene; D63.1 Anemia in chronic kidney disease; E78.5 Hyperlipidemia, unspecified; I48.91 Unspecified atrial fibrillation; N18.30 Chronic kidney disease, stage 3 unspecified; Z87.891 Personal history of nicotine dependence; Z79.01 Long term (current) use of anticoagulants; Z79.4 Long term (current) use of insulin; Z95.810 Presence of automatic (implantable) cardiac defibrillator
CPT/HCPCS: 36415; 36416; 36556; 36600; 71045; 71046; 80048; 80053; 80076; 80202; 81001; 82010; 82728; 82805; 83605; 84145; 84484; 85007; 85025; 85027; 85379; 86140; 94640; 96365; 96375; J0692; J1720; J1815; J1940; J1956; J2060; J2270; J2405; J2920; J3370; J3490; J7050; J7512; J7620; S0028; U0002

== ENCOUNTER 2020-08-20 13:11 | Inpatient (IN) | payer MEDICARE ==
[~2020-08-20 13:11] MED LIST: Heparin 1,000 UNITS/ML VIAL ONE
--- NOTE | 2020-08-20 13:47 | RAD ---
EXAM: Single view of the chest HISTORY: Dyspnea COMPARISON: 08/19/2020 FINDINGS: Single view of the chest shows an enlarged but stable cardiomediastinal silhouette. The zoë kin vasculature is prominent but stable. The pacemaker is unchanged in position. Diffuse increased interstitial markings are present. There may be superimposed infiltrates in bilateral lower lobes. N o acute osseous abnormality. IMPRESSION: Stable exam
[2020-08-20 14:12] LABS: Platelet Count 109 thou/uL (130-400)
[2020-08-20 14:13] LABS: #Lymphocytes 0.6 thou/uL (1.20-3.40); #Monocytes 0.9 thou/uL (0.11-0.59); #Neutrophils 9.5 thou/uL (1.40-6.50); %Basophils 0.4 % (0.0-1.0); %Lymphocytes 5.5 % (21.0-51.0); %Neutrophils 86.1 % (42.0-75.0); Hemoglobin 12.2 g/dL (14.0-18.0); Mean Corpuscular HGB CONC 33.1 g/dL (32.0-36.0); Mean Corpuscular Hemoglobin 29.6 pg (27.0-31.0); Mean Corpuscular Volume 89.6 fL (78.0-98.0); Mean Platelet Volume 12.1 fL (7.4-10.4); Red Blood Cell (RBC) Count 4.12 mill/uL (4.70-6.10)
[2020-08-20] MEDS ORDERED: cefTRIAXone\\ROCEPHIN 2 GM VIAL ONE (14:21)
[2020-08-20 14:24] LABS: Actual Bicarbonate (HCO3a) 20.7 mEq/L (22-28); Analyzer IN Cardio ER; Base Excess (BEa) -2.4 mEq/L (-2.0 to +3.0); Calcium, Ionized (arterial) 1.23 mmol/L (1.12-1.30); Carboxyhemoglobin (COHb) 0.3 gm% (0.0-3.0); Hemoglobin (Hb) 12.6 g/dL (14.0-18.0); O2 Tension (PaO2), arterial 109.9 mmHg (> 70.0); Potassium - ABG Lab 2.91 mmol/L (3.70-5.30); pH, Arterial 7.44 (7.35-7.45)
[2020-08-20 14:26] LABS: Puncture Site LRA
[2020-08-20 14:38] LABS: ALT (SGPT) 213 U/L (8-55); AST (SGOT) 64 U/L (5-34); Albumin 3.5 g/dL (3.4-4.8); Alkaline Phosphatase 187 U/L (40-110); Anion Gap 16 mmol/L (10-20); BUN (Urea Nitrogen) 52 mg/dL (8.4-25.7); Bilirubin, Total 1.1 mg/dL (0.2-1.2); CK (CPK) 45 U/L (30-200); Calc. Creatinine Clearance 0 mL/min (70-130); Calcium 9.5 mg/dL (7.8-10.44); Carbon Dioxide 22 mmol/L (23-31); Chloride 105 mmol/L (98-107); Globulin 3.4 g/dL (2.4-3.5); Glucose 78 mg/dL (83-110); Magnesium 2.3 mg/dL (1.6-2.6); Protein, Total 6.9 g/dL (5.8-8.1); Sodium 140 mmol/L (136-145)
[2020-08-20] MEDS ORDERED: Aspirin Chewable 81 MG TAB ONE (14:59)
[2020-08-20 15:00] LABS: CKMB 3.4 ng/mL (0-6.6)
[2020-08-20 15:20] LABS: Bilirubin Negative (Negative); Blood, Urine 2+ (Negative); Clarity Clear (Clear); Glucose, Urine (Dipstick) Normal (Negative); Ketone, Urine Negative (Negative); Leukocyte Negative Leu/uL (Negative); Nitrite Negative (Negative); Protein, Urine (Dipstick) 100 mg/dL (Neg-Trace); RBC/HPF 0-3 HPF (0-3); Specific Gravity, Urine 1.013 (1.002-1.036); Squamous Epithelial None Seen HPF (0-3); Urobilinogen Normal mg/dL (Less than 2)
[2020-08-20 15:24] LABS: INR-International Normal Ratio 1.3; Prothrombin Time 16.3 sec (12.0-14.7)
[2020-08-20 15:26] LABS: Bacteria/HPF None Seen HPF (None Seen)
[2020-08-20] MEDS ORDERED: Potassium Chloride 20 MEQ TAB ONE (16:17)
[2020-08-20] MEDS ORDERED: Furosemide 40 MG/4 ML VIAL ONE (16:17)
--- NOTE | 2020-08-20 17:14 | PDOC.HHP ---
Hospitalist HPI - History of Present Illness Worsening SOB History of Present Illness: 74 YO M with PMH of Afib on Eliquis, CHF, COPD, DM, HLD who was d/c yday after an admission for BL PNA. Pt says after getting home he kept experiencing worsening SOB. He denied CP, fever, chills, edema, nausea and vomiting. Upon presentation to the ER, he was noted to be hypoxic and in Afib w RVR. He was given a fluid bolus and HR improved. Cardiology as been consulted and pt will be admitted for further eval. Hospitalist ROS - Review of Systems Constitutional: denies: fever, chills, sweats, weakness, malaise, other Eyes: denies: pain, vision change, conjunctivae inflammation, eyelid inflammation, redness, other ENT: denies: ear pain, ear discharge, nose pain, nose discharge, nose congestion, mouth pain, mouth swelling, throat pain, throat swelling, other Respiratory: reports: cough, shortness of breath, SOB with excertion Cardiovascular: denies: chest pain, palpitations, orthopnea, paroxysmal noc. dyspnea, edema, light headedness, other Gastrointestinal: denies: nausea, vomiting, abdominal pain, diarrhea, const ipation, melena, hematochezia, other Genitourinary: denies: dysuria, frequency, incontinence, hematuria, retention, other Skin: denies: rash, lesions, carey, bruising, other Neurological: denies: weakness, numbness, incoordination, change in speech, confusion, seizures, other Hospitalist History - Past Medical History Cardiac: reports: AFIB, CAD, CHF, HTN Pulmonary: reports: COPD Renal/: reports: Chronic renal insuff (Stage III) Endocrine: reports: Diabetes - Social History Alcohol: reports: None Drugs: reports: none Living Situation: With Family Domestic Violence: Negative Activity level: independent ambulation - Exam General Appearance: NAD, awake alert Eye: PERRL, anicteric sclera ENT: normocephalic atraumatic, no oropharyngeal lesions Neck: supple, symmetric, no JVD, no lymphadenopathy Heart: RRR, no murmur, no gallops, normal peripheral pulses Respiratory: CTAB, no wheezes, no rales, normal chest expansion Gastrointestinal: soft, non-tender, non-distended, no palpable masses Extremities: no cyanosis, no clubbing, no edema Skin: no lesions, no rashes Neurological: cranial nerve grossly intact, no focal deficits Musculoskeletal: normal strength, no muscle wasting Psychiatric: normal affect, normal behavior, A&O x 3, oriented to place Hospitalist Results - Labs Result Diagrams: 08/20/20 13:54 08/20/20 13:54 Lab results: WBC 11.0 thou/uL (4.8-10.8) H 08/20/20 13:54 Hgb 12.2 g/dL (14.0-18.0) L 08/20/20 13:54 Hct 36.9 % (42.0-52.0) L 08/20/20 13:54 MCV 89.6 fL (78.0-98.0) 08/20/20 13:54 Plt Count 109 thou/uL (130-400) L 08/20/20 13:54 Neutrophils % 86.1 % (42.0-75.0) H 08/20/20 13:54 ABG pH 7.44 (7.35-7.45) 08/20/20 14:20 ABG pCO2 31.0 mmHg (35.0-45.0) L 08/20/20 14:20 ABG pO2 109.9 mmHg (> 70.0) H 08/20/20 14:20 Sodium 140 mmol/L (136-145) 08/20/20 13:54 Potassium 3.0 mmol/L (3.5-5.1) L 08/20/20 13:54 Chloride 105 mmol/L (98-107) 08/20/20 13:54 Carbon Dioxide 22 mmol/L (23-31) L 08/20/20 13:54 BUN 52 mg/dL (8.4-25.7) H 08/20/20 13:54 Creatinine 3.04 mg/dL (0.7-1.3) H 08/20/20 13:54 Glucose 78 mg/dL (83-110) L 08/20/20 13:54 Lactic Acid 1.7 mmol/L (0.5-2.2) 08/20/20 13:54 Calcium 9.5 mg/dL (7.8-10.44) 08/20/20 13:54 Total Bilirubin 1.1 mg/dL (0.2-1.2) 08/20/20 13:54 AST 64 U/L (5-34) H 08/20/20 13:54 ALT 213 U/L (8-55) H 08/20/20 13:54 Alkaline Phosphatase 187 U/L (40-110) H 08/20/20 13:54 Creatine Kinase 45 U/L (30-200) 08/20/20 13:54 CK-MB (CK-2) 3.4 ng/mL (0-6.6) 08/20/20 13:54 Troponin I 0.052 ng/mL (< 0.028) H 08/20/20 13:54 B-Natriuretic Peptide 89221.0 pg/mL (0-100) H 08/20/20 13:54 Serum Total Protein 6.9 g/dL (5.8-8.1) 08/20/20 13:54 Albumin 3.5 g/dL (3.4-4.8) 08/20/20 13:54 Lipase 75 U/L (8-78) 08/20/20 13:54 Urine Ketones Negative mg/dL (Negative) 08/20/20 14:40 Urine Blood 2+ (Negative) A 08/20/20 14:40 Urine Nitrite Negative (Negative) 08/20/20 14:40 Ur Leukocyte Esterase Negative Enma/uL (Negative) 08/20/20 14:40 Urine RBC 0-3 HPF (0-3) 08/20/20 14:40 Urine WBC 4-6 HPF (0-3) A 08/20/20 14:40 Ur Squamous Epith Cells None Seen HPF (0-3) 08/20/20 14:40 Urine Bacteria None Seen HPF (None Seen) 08/20/20 14:40 Hospitalist H&P A/P - Problem (1) Acute on chronic systolic (congestive) heart failure Code(s): I50.23 - ACUTE ON CHRONIC SYSTOLIC (CONGESTIVE) HEART FAILURE Status: Acute Assessment and Plan: Likely cause of pt's SOB. Will give Lasix BID. Cardiology is on board. F/u with their recs. (2) Acute respiratory failure with hypoxia Code(s): J96.01 - ACUTE RESPIRATORY FAILURE WITH HYPOXIA Status: Acute Assessment and Plan: Pt is on 2 L of O2. Wean O2 as tolerated. (3) Cardiomyopathy Code(s): I42.9 - CARDIOMYOPATHY, UNSPECIFIED Status: Acute Assessment and Plan: s/p AICD. AICD will be interogatted. (4) Pneumonia Code(s): J18.9 - PNEUMONIA, UNSPECIFIED ORGANISM Status: Acute Assessment and Plan: Will get procalcitonin and CT chest. Pt as received several doses of abx last admission Will cont current abx for now. (5) Afib Code(s): I48.91 - UNSPECIFIED ATRIAL FIBRILLATION Status: Chronic Qualifiers: Atrial fibrillation type: paroxysmal Qualified Code(s): I48.0 - Paroxysmal atrial fibrillation Assessment and Plan: POA. Was in RVR on presentation. Improved s/p IVF bolus. Will start prior meds. Monitor on telemetry. Await cardiology recs. (6) COPD (chronic obstructive pulmonary disease) Status: Chronic Qualifiers: Emphysema type: unspecified Assessment and Plan: Not in exacerbation. Will give nebs as needed. (7) Diabetes Code(s): E11.9 - TYPE 2 DIABETES MELLITUS WITHOUT COMPLICATIONS Status: Chronic Qualifiers: Diabetes mellitus type: type 2 Diabetes mellitus prison insulin use: with manager long term care use Diabetes mellitus complication status: with kidney complications Diabetes mellitus complication detail: with chronic kidney disease Chronic kidney disease stage: stage 3 (moderate) Qualified Code(s): E11.22 - Type 2 diabetes mellitus with diabetic chronic kidney disease; N18.3 - Chronic kidney disease, stage 3 (moderate); Z79.4 - [facility] (current) use of insulin Assessment and Plan: Resume DM meds, monitor BG, cover with SSI. (8) HTN (hypertension) Code(s): I10 - ESSENTIAL (PRIMARY) HYPERTENSION Status: Chronic Qualifiers: Hypertension type: essential hypertension Qualified Code(s): I10 - Es sential (primary) hypertension Assessment and Plan: Resume BP meds. Monitor BP. (9) Hypokalemia Code(s): E87.6 - HYPOKALEMIA Status: Acute Assessment and Plan: Will replace. Will also give Magnesium. Monitor K levels. - Plan Plan: PPx: Eliquis. CODE: FULL. Dispostion. Admit as inpt.
[2020-08-20] MEDS ORDERED: Ondansetron ODT 4 MG TAB SL PRN (18:15)
[2020-08-20] MEDS ORDERED: Ondansetron PF 4 MG/2 ML Vial IVP PRN (18:15)
[2020-08-20] MEDS ORDERED: Dextrose 5% in Water 1,000 ML IV PRN (18:34)
[2020-08-20] MEDS ORDERED: METHYLPREDNISOLONE 4 MG PO SCH (18:45)
[2020-08-20] MEDS: Apixaban 5 MG TAB PO SCH (20:12)
[2020-08-20] MEDS: Rosuvastatin 20 MG TAB PO SCH (20:12)
[2020-08-20 21:29] LABS: Troponin I 0.058 ng/mL (< 0.028)
--- NOTE | 2020-08-20 21:30 | CT ---
CT CHEST WITHOUT CONTRAST: Date: 08/20/2020 PROVIDED CLINICAL HISTORY: Shortness of breath. Pneumonia. FINDINGS: No chest CT comparisons. The heart, pericardium, and great vessels are suboptimally evaluated in the absence of IV contrast ma terial. Vascular calcification including coronary calcium. Cardiac pacing device. There is consolidation involving the right middle lobe compatible with pneumonia. Less conspicuous ai r space disease is seen focally involving a portion of the right lower lobe. The left lung appears fr ee of significant opacity. There is trace left pleural fluid. There is moderate right pleural fluid. The airway appears patent and of normal caliber. There is bronchial wall thickening involving right m iddle lobe and right lower lobe bronchi. There is no evidence for pneumothorax. There is no evidence for thoracic lymph node enlargement. The visualized portions of the upper abdomen demonstrate no acut e abnormality. IMPRESSION: 1. Right middle lobe and to a lesser extent right lower lobe air space disease compatible with pneum onia. 2. Moderate right and trace left pleural fluid. 3. Bronchial wall thickening involving right middle and right lower lobes compatible with bronchitis . POS: QUYNH
[2020-08-20] MEDS: Insulin Glargine 25 UNITS in Pre-Filled Syringe 1 EACH SC SCH (21:58)
[2020-08-20] MEDS: Melatonin 3 MG TAB PO PRN (23:02)
[2020-08-20 23:07] VITALS: BMI 21.2
[2020-08-21 05:17] LABS: #Lymphocytes 0.9 thou/uL (1.20-3.40); #Monocytes 1.2 thou/uL (0.11-0.59); #Neutrophils 8.3 thou/uL (1.40-6.50); %Basophils 0.1 % (0.0-1.0); %Eosinophils 0.1 % (0.0-10.0); %Lymphocytes 8.8 % (21.0-51.0); %Monocytes 11.5 % (0.0-10.0); %Neutrophils 79.6 % (42.0-75.0); Hemoglobin 11.9 g/dL (14.0-18.0); Mean Corpuscular HGB CONC 31.9 g/dL (32.0-36.0); Mean Corpuscular Hemoglobin 28.9 pg (27.0-31.0); Mean Corpuscular Volume 90.6 fL (78.0-98.0); Mean Platelet Volume 12.2 fL (7.4-10.4); Platelet Count 107 thou/uL (130-400); Red Blood Cell (RBC) Count 4.12 mill/uL (4.70-6.10); White Blood Cell (WBC) Count 10.5 thou/uL (4.8-10.8)
[2020-08-21 05:46] LABS: Anion Gap 15 mmol/L (10-20); BUN (Urea Nitrogen) 49 mg/dL (8.4-25.7); Calc. Creatinine Clearance 19 mL/min (70-130); Carbon Dioxide 22 mmol/L (23-31); Chloride 103 mmol/L (98-107); Potassium 3.2 mmol/L (3.5-5.1); Sodium 137 mmol/L (136-145)
[2020-08-21 05:50] LABS: Glucose 58 mg/dL (83-110)
[2020-08-21] MEDS: Mometasone 100 MCG/PUFF (1 INHALER) INH SCH ×2 (08:21→18:35)
[2020-08-21] MEDS: Carvedilol 6.25 MG TAB PO SCH ×2 (08:37→16:58)
[2020-08-21] MEDS: Apixaban 5 MG TAB PO SCH (08:38)
[2020-08-21] MEDS ORDERED: Non-Formulary Item 1 EACH (Fluticasone/Umeclidin/Vilanter [Trelegy Ellipta 100-62.5-25] 1 INH SCH (09:00)
[2020-08-21] MEDS: Icosapent Ethyl 1 GM CAPSULE PO SCH ×2 (09:20→17:32)
[2020-08-21] MEDS: Insulin Glargine 25 UNITS in Pre-Filled Syringe 1 EACH SC SCH ×2 (09:25→21:49)
[2020-08-21] MEDS: Azithromycin 500 MG in Sodium Chloride 0.9% 250 ML 250 ML IVPB SCH (11:17)
[2020-08-21] MEDS: methylPREDNISolone 4 mg Tablet PO SCH ×3 (11:18→20:16)
[2020-08-21] MEDS: HumaLOG 300 UNITS/3 ML VIAL SC PRN (11:27)
[2020-08-21] MEDS: cefTRIAXone\\ROCEPHIN 1 GM in Sodium Chloride 0.9% 100 ML IVPB SCH (15:18)
[2020-08-21] MEDS: Furosemide 20 MG/2 ML VIAL SLOW IVP SCH (15:18)
--- NOTE | 2020-08-21 15:29 | PDOC.HOSPP ---
- Subjective Encounter Date: 08/21/20 - Objective Vital Signs & Weight: Vital Signs (12 hours) Temp Pulse Resp BP BP Pulse Ox 08/21/20 13:46 81 14 08/21/20 11:40 97.5 F L 95 15 93/56 L 100 08/21/20 08:37 118/75 08/21/20 08:18 99 24 H 08/21/20 07:28 96 F L 97 14 118/75 99 08/21/20 07:27 99 08/21/20 04:00 97.5 F L 90 20 136/71 93 L Weight Weight 129 lb 3.2 oz I&O: 08/20/20 08/21/20 08/22/20 06:59 06:59 06:59 Intake Total 600 240 Output Total 950 Balance -350 240 Result Diagrams: 08/21/20 04:08 08/21/20 04:08 Additional Labs: Accuchecks 08/21/20 08/20/20 10:42 21:03 POC Glucose 171 H 109 H Hospitalist ROS - Medication Medications: Active Medications Generic Name Dose Route Start Last Admin Trade Name Freq PRN Reason Stop Dose Admin Albuterol/Ipratropium 3 ml 08/21/20 01:00 08/21/20 13:46 Ipratropium/Albuterol Sulfate 3 Ml Neb NEB 3 ml [id number] DEV Administration Carvedilol 6.25 mg 08/21/20 08:00 08/21/20 08:37 Carvedilol 6.25 Mg Tab PO 6.25 mg BID-WM DEV Administration Furosemide 20 mg 08/21/20 14:00 08/21/20 15:18 Furosemide 20 Mg/2 Ml Vial SLOW IVP 20 mg 0600,1400 DEV Administration Insulin Glargine 25 units/ 0.25 mls @ 0 mls/hr 08/20/20 21:00 08/21/20 09:25 Miscellaneous Medication SC Not Given BID DEV Azithromycin 500 mg/ Sodium 250 mls @ 250 mls/hr 08/21/20 11:00 08/21/20 11:17 Chloride IVPB 250 mls 1100 DEV Administration Ceftriaxone Sodium 1 gm/ 100 mls @ 200 mls/hr 08/21/20 14:00 08/21/20 15:18 Sodium Chloride IVPB 100 mls 1400 DEV Administration Insulin Human Lispro 0 units 08/20/20 18:34 08/21/20 11:27 Humalog 300 Units/3 Ml Vial SC 2 unit .MODERATE SLIDING SC PRN Administration Moderate Correctional Scale Melatonin 6 mg 08/20/20 22:32 08/20/20 23:02 Melatonin 3 Mg Tab PO 6 mg HS PRN Administration Insomnia Methylprednisolone 8 mg 08/21/20 12:00 08/21/20 11:18 Methylprednisolone 4 Mg Tablet PO 08/21/20 21:01 8 mg 1200,1700,2100 DEV Administration Miscellaneous Medication 1 gm 08/21/20 08:00 08/21/20 09:20 Icosapent Ethyl 1 Gm Capsule PO 1 gm BID-WM DEV Administration Mometasone Furoate 100 mcg 08/21/20 06:30 08/21/20 08:21 Mometasone 100 Mcg/Puff (1 Inhaler) INH 1 puff BID-RT DEV Administration Rosuvastatin Calcium 40 mg 08/20/20 21:00 08/20/20 20:12 Rosuvastatin 20 Mg Tab PO 40 mg MoThFr@2100 DEV Administration - Exam General Appearance: awake alert ENT: normocephalic atraumatic Neck: supple, no JVD Heart: irregular Respiratory: no wheezes, no tachypnea, rhonchi Gastrointestinal: soft Extremities: no cyanosis, no clubbing Hosp A/P (1) Acute respiratory failure with hypoxia Code(s): J96.01 - ACUTE RESPIRATORY FAILURE WITH HYPOXIA Status: Acute (2) Atrial fibrillation with RVR Code(s): I48.91 - UNSPECIFIED ATRIAL FIBRILLATION Status: Acute (3) Right middle lobe pneumonia Code(s): J18.9 - PNEUMONIA, UNSPECIFIED ORGANISM Status: Acute (4) COPD exacerbation Code(s): J44.1 - CHRONIC OBSTRUCTIVE PULMONARY DISEASE W (ACUTE) EXACERBATION Status: Acute (5) Cardiomyopathy Code(s): I42.9 - CARDIOMYOPATHY, UNSPECIFIED Status: Acute (6) HTN (hypertension) Code(s): I10 - ESSENTIAL (PRIMARY) HYPERTENSION Status: Chronic Qualifiers: Hypertension type: essential hypertension Qualified Code(s): I10 - Essential (primary) hypertension (7) Diabetes Code(s): E11.9 - TYPE 2 DIABETES MELLITUS WITHOUT COMPLICATIONS Status: Chronic Qualifiers: Diabetes mellitus type: type 2 Diabetes mellitus mcfp insulin use: with mcfp use Diabetes mellitus complication status: with kidney complications Diabetes mellitus complication detail: with chronic kidney disease Chronic kidney disease stage: stage 3 (moderate) Qualified Code(s): E11.22 - Type 2 diabetes mellitus with diabetic chronic kidney disease; N18.3 - Chronic kidney disease, stage 3 (moderate); Z79.4 - alf (current) use of insulin - Plan Hypoxia due to right middle and lower lobe pneumonia in the setting of COPD. Continue nebulizer treatments, IV antibiotics, corticosteroids. Atrial fibrillation with a ventricular sponsor currently rate controlled on carvedilol. Continue Eliquis at a reduced dose due to the patient's age and kidney function.
[2020-08-21] MEDS ORDERED: Digoxin 0.5 MG/2 ML AMP SLOW IVP SCH (18:30)
[2020-08-21] MEDS ORDERED: Amiodarone 150 MG in Dextrose 5% in Water 100 ML IVPB SCH (18:30)
[2020-08-21] MEDS: Amiodarone 450 MG in Dextrose 5% in Water 250 ML IVPB SCH (19:43)
--- NOTE | 2020-08-21 19:54 | CON ---
DATE OF CONSULTATION: HISTORY: Durga Almonte is a 74-year-old male, patient of Dr. Monroe, for many years. In October 2010, he underwent cardiac catheterization by Dr. Lyle Hudson at [facility]. This revealed ejection fraction of 40% to 45% with normal coronary arteries. He has had progressive worsening left ventricular function. In October 2019, he underwent placement of a biventricular ICD by Dr. Spain at [facility] [place]. He now was admitted on August 16 with progressive dyspnea. He was found to have pneumonia and received antibiotics and has improved. However, he has been noted that he has a rapid heart rate and Cardiology was again consulted. He denies any chest discomfort. He states that he is still somewhat short of breath. PAST MEDICAL HISTORY: Cardiomyopathy, paroxysmal atrial fibrillation, chronic kidney disease, diabetes, and hypercholesterolemia. MEDICATIONS: 1. Eliquis 5 mg b.i.d. 2. Carvedilol 6.25 b.i.d. 3. Omnicef 300 daily. 4. Lasix 40 daily. 5. Insulin. 6. Levofloxacin 250 daily. 7. Medrol and Crestor 40 mg daily. ALLERGIES: NONE. SOCIAL HISTORY: He does not smoke or drink. PHYSICAL EXAMINATION: VITAL SIGNS: Blood pressure 118/75, pulse of 101, and irregularly irregular. HEENT: PERRL. NECK: Supple. CHEST: Reveals occasional rhonchi. CARDIOVASCULAR: S1, S2 normal without any S3, S4, or murmurs. ABDOMEN: Normal bowel sounds without tenderness or organomegaly. EXTREMITIES: Revealed no clubbing, cyanosis, or edema. NEUROLOGIC: Grossly intact. LABORATORY DATA: EKG reveals atrial fibrillation with occasional ventricular pacing. In looking at his monitor strips, it appears that he has been in atrial fibrillation during the whole admission with only rare biventricular pacing. On interrogation of his device, he was probably in atrial fibrillation at the time of admission. Hemoglobin 11.9, hematocrit 37.4, white count 10,500, and platelets 107,000. Sodium 137, potassium 3.2, chloride 103, carbon dioxide 22, BUN 49, creatinine 2.85. Troponin I 0.100 IMPRESSION: 1. Non-ischemic cardiomyopathy. 2. Status post placement of biventricular implantable cardioverter-defibrillator in October 2019. 3. Pneumonia. 4. Ejection fraction of 15% to 20% on last echo. 5. Paroxysmal atrial fibrillation in the past; however, it appears that he has been in atrial fibrillation since he was admitted on August 16. 6. Chronic kidney disease. PLAN: Entresto has been held due to his elevated creatinine. With atrial fibrillation with somewhat fast ventricular response, he has not been able to receive the benefits of biventricular pacing. I will give him one dose of digoxin 0.5 mg IV to hopefully slow his rate to where he will pace more. Also, he will be started on intravenous amiodarone and consideration can be given to cardioversion in 2 or 3 days. His creatinine was elevated; however, he is less than 80 years old and his weight is in the 140s, but the most recent weight was 129 today. This will need to be watched closely and consideration may be given to an increase in his Eliquis dose. Job ID: [id number] MTDD
[2020-08-21] MEDS: Melatonin 3 MG TAB PO PRN (20:15)
[2020-08-21] MEDS: Rosuvastatin 20 MG TAB PO SCH (20:16)
[2020-08-21] MEDS: Apixaban 2.5 MG TAB PO SCH (20:16)
[2020-08-21] MEDS ORDERED: FLU VACC QS2020-21(65YR UP)/PF 240 MCG/0.7 ML SYRINGE IM ONE (21:00)
[2020-08-22] MEDS: Furosemide 20 MG/2 ML VIAL SLOW IVP SCH ×2 (05:17→15:14)
[2020-08-22] MEDS: Amiodarone 450 MG in Dextrose 5% in Water 250 ML IVPB SCH (05:48)
[2020-08-22] MEDS: Mometasone 100 MCG/PUFF (1 INHALER) INH SCH ×2 (08:03→19:00)
[2020-08-22 09:03] LABS: Hemoglobin 12.2 g/dL (14.0-18.0); Platelet Count 95 thou/uL (130-400)
[2020-08-22] MEDS: Icosapent Ethyl 1 GM CAPSULE PO SCH ×2 (09:46→17:35)
[2020-08-22] MEDS: Carvedilol 6.25 MG TAB PO SCH ×2 (09:46→17:35)
[2020-08-22] MEDS: methylPREDNISolone 4 mg Tablet PO SCH ×3 (09:46→18:00)
[2020-08-22] MEDS: Insulin Glargine 25 UNITS in Pre-Filled Syringe 1 EACH SC SCH ×2 (09:46→22:24)
[2020-08-22] MEDS: Apixaban 2.5 MG TAB PO SCH ×2 (09:46→22:07)
[2020-08-22] MEDS: HumaLOG 300 UNITS/3 ML VIAL SC PRN ×2 (11:30→17:40)
[2020-08-22] MEDS: Azithromycin 500 MG in Sodium Chloride 0.9% 250 ML 250 ML IVPB SCH (12:17)
--- NOTE | 2020-08-22 13:05 | PDOC.CPN ---
- Subjective Date: 08/22/20 Time: 13:03 Interval history: No overnight events, patient states that he feels his SOB has gotten better since yesterday. No new complaints today. - Review of Systems General: denies: fever/chills, weight/appetite/sleep changes, night sweats, fatigue Respiratory: reports: shortness of breath (c/o periodic SOB, no SOB during exam today). denies: cough, congestion, exercise intolerance Cardiovascular: denies: chest pain, palpitation, edema, paroxysmal nocturnal dyspnea, orthopnea Gastrointestinal: denies: nausea, vomiting, diarrhea, constipation, abd pain, GI bleeding Musculoskeletal: denies: pain, tenderness, stiffness, swelling, arthritis/arthralgias Neurological: denies: numbness, syncope, seizure, weakness - Objective Allergies/Adverse Reactions: Allergies Allergy/AdvReac Type Severity Reaction Status Date / Time No Known Allergies Allergy Verified 05/10/20 10:06 Visit Medications: Current Medications Acetaminophen (Acetaminophen 325 Mg Tab) 650 mg PO Q4H PRN PRN Reason: Headache/Fever/Mild Pain (1-3) Albuterol/Ipratropium (Ipratropium/Albuterol Sulfate 3 Ml Neb) 3 ml NEB [id number] PENDING SALE TO [facility] Last Admin: 08/22/20 07:54 Dose: 3 ml Documented by: Apixaban (Apixaban 2.5 Mg Tab) 2.5 mg PO BID [facility] Last Admin: 08/22/20 09:46 Dose: 2.5 mg Documented by: Carvedilol (Carvedilol 6.25 Mg Tab) 6.25 mg PO BID-WM [facility] Last Admin: 08/22/20 09:46 Dose: 6.25 mg Documented by: Dextrose/Water (Dextrose 50% Abboject 50 Ml Syringe) 25 gm SLOW IVP PRN PRN PRN Reason: Hypoglycemia Furosemide (Furosemide 20 Mg/2 Ml Vial) 20 mg SLOW IVP 0600,1400 [facility] Last Admin: 08/22/20 05:17 Dose: 20 mg Documented by: Glucagon (Glucagon 1 Mg/Ml Vial) 1 mg IM PRN PRN PRN Reason: Hypoglycemia Dextrose/Water (D5w) 1,000 mls @ 0 mls/hr IV .Q0M PRN PRN Reason: Hypoglycemia Insulin Glargine 25 units/ (Miscellaneous Medication) 0.25 mls @ 0 mls/hr SC BID [facility] Last Admin: 08/22/20 09:46 Dose: 0.25 mls Documented by: Azithromycin 500 mg/ Sodium (Chloride) 250 mls @ 250 mls/hr IVPB 1100 [facility] Last Admin: 08/22/20 12:17 Dose: 250 mls Documented by: Ceftriaxone Sodium 1 gm/ (Sodium Chloride) 100 mls @ 200 mls/hr IVPB 1400 [facility] Last Admin: 08/21/20 15:18 Dose: 100 mls Documented by: Amiodarone HCl 450 mg/ (Dextrose/Water) 259 mls @ 0 mls/hr IVPB INF DEV; Protocol Last Admin: 08/22/20 05:48 Dose: 259 mls Documented by: Insulin Human Lispro (Humalog 300 Units/3 Ml Vial) 0 units SC .MODERATE SLIDING SC PRN PRN Reason: Moderate Correctional Scale Last Admin: 08/22/20 11:30 Dose: 4 unit Documented by: Melatonin (Melatonin 3 Mg Tab) 6 mg PO HS PRN PRN Reason: Insomnia Last Admin: 08/21/20 20:15 Dose: 6 mg Documented by: Methylprednisolone (Methylprednisolone 4 Mg Tablet) 4 mg PO 0800,1300,1800 [facility] Stop: 08/22/20 18:01 Last Admin: 08/22/20 09:46 Dose: 4 mg Documented by: Methylprednisolone (Methylprednisolone 4 Mg Tablet) 8 mg PO 2100 [facility] Stop: 08/22/20 21:01 Methylprednisolone (Methylprednisolone 4 Mg Tablet) 4 mg PO 0800,1200,1700,2100 [facility] Stop: 08/23/20 21:01 Methylprednisolone (Methylprednisolone 4 Mg Tablet) 4 mg PO 0800,1200,1700 [facility] Stop: 08/24/20 17:01 Methylprednisolone (Methylprednisolone 4 Mg Tablet) 4 mg PO 0800,1700 [facility] Stop: 08/25/20 17:01 Methylprednisolone (Methylprednisolone 4 Mg Tablet) 4 mg PO 0800 [facility] Stop: 08/26/20 08:01 Miscellaneous Medication (Icosapent Ethyl 1 Gm Capsule) 1 gm PO BID-WM [facility] Last Admin: 08/22/20 09:46 Dose: 1 gm Documented by: Mometasone Furoate (Mometasone 100 Mcg/Puff (1 Inhaler)) 100 mcg INH BID-RT [facility] Last Admin: 08/22/20 08:03 Dose: 2 puff Documented by: Rosuvastatin Calcium (Rosuvastatin 20 Mg Tab) 40 mg PO MoThFr@2100 DEV Last Admin: 08/21/20 20:16 Dose: 40 mg Documented by: Vital Signs & Weight: Vital Signs Temp Pulse Resp BP BP Pulse Ox 08/22/20 11:27 97.8 F 80 16 111/58 L 99 08/22/20 09:46 118/75 08/22/20 07:55 98 08/22/20 07:54 80 24 H 08/22/20 07:18 98.7 F 82 18 122/70 98 08/22/20 03:33 98.6 F 80 20 121/67 96 08/22/20 01:41 99 Weight 127 lb 8 oz - Quality Measures CV meds: Beta Valeriano: Yes, PETERSON/ARB: No (Entresto stopped for now d/t elevated Hydro Pneumatic Tester level), Anticoagulant: Yes (Eliquis) - Medication Contraindications No PETERSON/ARB reason: Medical contraindication (Elevated Hydro Pneumatic Tester levels) - Physical Exam General: alert & oriented x3, appears well, no apparent distress HEENT: mucus membranes moist Neck: supple neck, no JVD/HJR Cardiac: irregularly regular Lungs: decreased breath sounds Neuro: cranial nerve 2-12 intact Abdomen: active bowel sounds, soft, non-tender Extremities: no cyanosis, no clubbing, no edema, 2+ popliteal, 2+ Posterior Tibial, 2+ Dorsalis Pedus Skin: clear Musculoskeletal: normal range of motion - Labs Result Diagrams: 08/22/20 08:52 08/22/20 08:52 Troponin/CKMB CK-MB (CK-2) 3.4 ng/mL (0-6.6) 08/20/20 13:54 Troponin I 0.058 ng/mL (< 0.028) H 08/20/20 20:54 - EKG Interpretation EKG Method: Telemetry EKG: other (V-paced, A-fib, HR 80) - Assessment/Plan Assessment/Plan: 1. Non-ischemic cardiomyopathy 2. Paroxysmal a-fib: Patient on Amio drip, change to po after 24hr. infusion. HR 80, pt on BB for rate control, consider cardioversion Monday when Dr. Mabel santiago, will make NPO Monday 3. S/P AICD 10/2019: patient has had no problems with AICD since insertion in 10/2019 4. Pneumonia: patient receiving IV antibiotics and steroid treatment 5. EF 15-20% in 04/2020 ECHO: Entresto on hold for now d/t elevated Hydro Pneumatic Tester levels 2.93 today (08/22/20) 6. V-tach: patient has had 2-3 episodes of 5-7 beats of NSvtach today. Asymptomatic. Will check magnesium and potassium levels Pt. seen and eval. by me. I agree with the A/P by the SENIOR ART DIRECTOR. Chest clear. RRR at this time. gjm
--- NOTE | 2020-08-22 14:05 | PDOC.HOSPP ---
- Subjective Encounter Date: 08/22/20 Subjective: Denies any new complaints. - Objective Vital Signs & Weight: Vital Signs (12 hours) Temp Pulse Resp BP BP Pulse Ox 08/22/20 11:27 97.8 F 80 16 111/58 L 99 08/22/20 09:46 118/75 08/22/20 07:55 98 08/22/20 07:54 80 24 H 08/22/20 07:18 98.7 F 82 18 122/70 98 08/22/20 03:33 98.6 F 80 20 121/67 96 Weight Weight 127 lb 8 oz I&O: 08/21/20 08/22/20 08/23/20 06:59 06:59 06:59 Intake Total 600 540 Output Total 950 1370 Balance -350 -830 Result Diagrams: 08/22/20 08:52 08/22/20 08:52 Additional Labs: Accuchecks 08/22/20 08/22/20 08/21/20 10:54 06:00 20:49 POC Glucose 244 H 136 H 167 H 08/21/20 16:18 POC Glucose 96 Hospitalist ROS - Medication Medications: Active Medications Generic Name Dose Route Start Last Admin Trade Name Freq PRN Reason Stop Dose Admin Albuterol/Ipratropium 3 ml 08/21/20 01:00 08/22/20 07:54 Ipratropium/Albuterol Sulfate 3 Ml Neb NEB 3 ml [id number] DEV Administration Apixaban 2.5 mg 08/21/20 21:00 08/22/20 09:46 Apixaban 2.5 Mg Tab PO 2.5 mg BID DEV Administration Carvedilol 6.25 mg 08/21/20 08:00 08/22/20 09:46 Carvedilol 6.25 Mg Tab PO 6.25 mg BID-WM DEV Administration Furosemide 20 mg 08/21/20 14:00 08/22/20 05:17 Furosemide 20 Mg/2 Ml Vial SLOW IVP 20 mg 0600,1400 DEV Administration Insulin Glargine 25 units/ 0.25 mls @ 0 mls/hr 08/20/20 21:00 08/22/20 09:46 Miscellaneous Medication SC 0.25 mls BID DEV Administration Azithromycin 500 mg/ Sodium 250 mls @ 250 mls/hr 08/21/20 11:00 08/22/20 12:17 Chloride IVPB 250 mls 1100 DEV Administration Ceftriaxone Sodium 1 gm/ 100 mls @ 200 mls/hr 08/21/20 14:00 08/21/20 15:18 Sodium Chloride IVPB 100 mls 1400 DEV Administration Amiodarone HCl 450 mg/ 259 mls @ 0 mls/hr 08/21/20 18:30 08/22/20 05:48 Dextrose/Water IVPB 259 mls INF DEV Administration Protocol Per Protocol Insulin Human Lispro 0 units 08/20/20 18:34 08/22/20 11:30 Humalog 300 Units/3 Ml Vial SC 4 unit .MODERATE SLIDING SC PRN Administration Moderate Correctional Scale Melatonin 6 mg 08/20/20 22:32 08/21/20 20:15 Melatonin 3 Mg Tab PO 6 mg HS PRN Administration Insomnia Methylprednisolone 4 mg 08/22/20 08:00 08/22/20 09:46 Methylprednisolone 4 Mg Tablet PO 08/22/20 18:01 4 mg 0800,1300,1800 DEV Administration Miscellaneous Medication 1 gm 08/21/20 08:00 08/22/20 09:46 Icosapent Ethyl 1 Gm Capsule PO 1 gm BID-WM DEV Administration Mometasone Furoate 100 mcg 08/21/20 06:30 08/22/20 08:03 Mometasone 100 Mcg/Puff (1 Inhaler) INH 2 puff BID-RT DEV Administration Rosuvastatin Calcium 40 mg 08/20/20 21:00 08/21/20 20:16 Rosuvastatin 20 Mg Tab PO 40 mg MoThFr@2100 DEV Administration - Exam General Appearance: awake alert ENT: normocephalic atraumatic Neck: supple, no JVD Heart: RRR Respiratory: normal chest expansion, no tachypnea Gastrointestinal: soft Extremities: no cyanosis, no clubbing Hosp A/P (1) Acute respiratory failure with hypoxia Code(s): J96.01 - ACUTE RESPIRATORY FAILURE WITH HYPOXIA Status: Acute (2) Atrial fibrillation with RVR Code(s): I48.91 - UNSPECIFIED ATRIAL FIBRILLATION Status: Acute (3) Right middle lobe pneumonia Code(s): J18.9 - PNEUMONIA, UNSPECIFIED ORGANISM Status: Acute (4) COPD exacerbation Code(s): J44.1 - CHRONIC OBSTRUCTIVE PULMONARY DISEASE W (ACUTE) EXACERBATION Status: Acute (5) Cardiomyopathy Code(s): I42.9 - CARDIOMYOPATHY, UNSPECIFIED Status: Acute (6) HTN (hypertension) Code(s): I10 - ESSENTIAL (PRIMARY) HYPERTENSION Status: Chronic Qualifiers: Hypertension type: essential hypertension Qualified Code(s): I10 - Essential (primary) hypertension (7) Diabetes Code(s): E11.9 - TYPE 2 DIABETES MELLITUS WITHOUT COMPLICATIONS Status: Chronic Qualifiers: Diabetes mellitus type: type 2 Diabetes mellitus senior living insulin use: with termite treater helper use Diabetes mellitus complication status: with kidney complications Diabetes mellitus complication detail: with chronic kidney disease Chronic kidney disease stage: stage 3 (moderate) - Plan Hypoxia due to right middle and lower lobe pneumonia in the setting of COPD. Continue nebulizer treatments, IV antibiotics, corticosteroids. Atrial fibrillation with controlled ventricular response. The patient is on amiodarone drip and beta-blockers. Continue Eliquis for anticoagulation.
[2020-08-22] MEDS: cefTRIAXone\\ROCEPHIN 1 GM in Sodium Chloride 0.9% 100 ML IVPB SCH (15:14)
[2020-08-22] MEDS ORDERED: Amiodarone 450 MG in Dextrose 5% in Water 250 ML IVPB SCH (17:40)
[2020-08-22 17:42] LABS: Magnesium 2.2 mg/dL (1.6-2.6); Potassium 3.5 mmol/L (3.5-5.1)
[2020-08-22] MEDS ORDERED: methylPREDNISolone 4 mg Tablet PO SCH (21:00)
[2020-08-22] MEDS: Amiodarone 200 MG TAB PO SCH (22:08)
[2020-08-23] MEDS: Melatonin 3 MG TAB PO PRN (02:11)
[2020-08-23] MEDS: Furosemide 20 MG/2 ML VIAL SLOW IVP SCH ×2 (05:28→14:40)
[2020-08-23] MEDS: Mometasone 100 MCG/PUFF (1 INHALER) INH SCH ×2 (08:41→18:53)
[2020-08-23] MEDS: Carvedilol 6.25 MG TAB PO SCH ×2 (08:56→17:46)
[2020-08-23] MEDS: Insulin Glargine 25 UNITS in Pre-Filled Syringe 1 EACH SC SCH ×2 (08:56→21:59)
[2020-08-23] MEDS: Icosapent Ethyl 1 GM CAPSULE PO SCH ×2 (08:57→17:45)
[2020-08-23] MEDS: Amiodarone 200 MG TAB PO SCH ×3 (08:57→21:59)
[2020-08-23] MEDS: Apixaban 2.5 MG TAB PO SCH ×2 (08:57→21:59)
[2020-08-23] MEDS: methylPREDNISolone 4 mg Tablet PO SCH ×4 (09:01→21:59)
[2020-08-23] MEDS: HumaLOG 300 UNITS/3 ML VIAL SC PRN ×2 (11:31→17:49)
[2020-08-23] MEDS: Azithromycin 500 MG in Sodium Chloride 0.9% 250 ML 250 ML IVPB SCH (11:31)
--- NOTE | 2020-08-23 11:46 | PDOC.CPN ---
- Subjective Date: 08/23/20 Time: 11:44 Interval history: Patient had one run of 5 beats of NSVT this A.M at 0625. He remains in atrial fibrillation. Patient denies any CP, palpitations, c/o shortness of breath, this has not changed since yesterday. - Review of Systems General: denies: fever/chills, weight/appetite/sleep changes, night sweats, fatigue Respiratory: reports: shortness of breath. denies: cough, congestion, exercise intolerance Cardiovascular: denies: chest pain, palpitation, edema, paroxysmal nocturnal dyspnea, orthopnea Gastrointestinal: denies: nausea, vomiting, diarrhea, constipation, abd pain, GI bleeding Musculoskeletal: denies: pain, tenderness, stiffness, swelling, arthritis/arthralgias Neurological: denies: numbness, syncope, seizure, weakness - Objective Allergies/Adverse Reactions: Allergies Allergy/AdvReac Type Severity Reaction Status Date / Time No Known Allergies Allergy Verified 05/10/20 10:06 Visit Medications: Current Medications Acetaminophen (Acetaminophen 325 Mg Tab) 650 mg PO Q4H PRN PRN Reason: Headache/Fever/Mild Pain (1-3) Albuterol/Ipratropium (Ipratropium/Albuterol Sulfate 3 Ml Neb) 3 ml NEB [id number] [facility] Last Admin: 08/23/20 08:33 Dose: 3 ml Documented by: Amiodarone HCl (Amiodarone 200 Mg Tab) 200 mg PO TID [facility] Last Admin: 08/23/20 08:57 Dose: 200 mg Documented by: Apixaban (Apixaban 2.5 Mg Tab) 2.5 mg PO BID [facility] Last Admin: 08/23/20 08:57 Dose: 2.5 mg Documented by: Carvedilol (Carvedilol 6.25 Mg Tab) 6.25 mg PO BID-WM [facility] Last Admin: 08/23/20 08:56 Dose: 6.25 mg Documented by: Dextrose/Water (Dextrose 50% Abboject 50 Ml Syringe) 25 gm SLOW IVP PRN PRN PRN Reason: Hypoglycemia Furosemide (Furosemide 20 Mg/2 Ml Vial) 20 mg SLOW IVP 0600,1400 [facility] Last Admin: 08/23/20 05:28 Dose: 20 mg Documented by: Glucagon (Glucagon 1 Mg/Ml Vial) 1 mg IM PRN PRN PRN Reason: Hypoglycemia Dextrose/Water (D5w) 1,000 mls @ 0 mls/hr IV .Q0M PRN PRN Reason: Hypoglycemia Insulin Glargine 25 units/ (Miscellaneous Medication) 0.25 mls @ 0 mls/hr SC BID [facility] Last Admin: 08/23/20 08:56 Dose: 0.25 mls Documented by: Azithromycin 500 mg/ Sodium (Chloride) 250 mls @ 250 mls/hr IVPB 1100 [facility] Last Admin: 08/23/20 11:31 Dose: 250 mls Documented by: Ceftriaxone Sodium 1 gm/ (Sodium Chloride) 100 mls @ 200 mls/hr IVPB 1400 [facility] Last Admin: 08/22/20 15:14 Dose: 100 mls Documented by: Insulin Human Lispro (Humalog 300 Units/3 Ml Vial) 0 units SC .MODERATE SLIDING SC PRN PRN Reason: Moderate Correctional Scale Last Admin: 08/23/20 11:31 Dose: 2 unit Documented by: Melatonin (Melatonin 3 Mg Tab) 6 mg PO HS PRN PRN Reason: Insomnia Last Admin: 08/23/20 02:11 Dose: 6 mg Documented by: Methylprednisolone (Methylprednisolone 4 Mg Tablet) 4 mg PO 0800,1200,1700,2100 [facility] Stop: 08/23/20 21:01 Last Admin: 08/23/20 11:31 Dose: 4 mg Documented by: Methylprednisolone (Methylprednisolone 4 Mg Tablet) 4 mg PO 0800,1200,1700 [facility] Stop: 08/24/20 17:01 Methylprednisolone (Methylprednisolone 4 Mg Tablet) 4 mg PO 0800,1700 [facility] Stop: 08/25/20 17:01 Methylprednisolone (Methylprednisolone 4 Mg Tablet) 4 mg PO 0800 [facility] Stop: 08/26/20 08:01 Miscellaneous Medication (Icosapent Ethyl 1 Gm Capsule) 1 gm PO BID-WM [facility] Last Admin: 08/23/20 08:57 Dose: 1 gm Documented by: Mometasone Furoate (Mometasone 100 Mcg/Puff (1 Inhaler)) 100 mcg INH BID-RT [facility] Last Admin: 08/23/20 08:41 Dose: 2 puff Documented by: Rosuvastatin Calcium (Rosuvastatin 20 Mg Tab) 40 mg PO MoThFr@2100 [facility] Last Admin: 08/21/20 20:16 Dose: 40 mg Documented by: Vital Signs & Weight: Vital Signs Temp Pulse Resp BP BP Pulse Ox 08/23/20 11:26 97.4 F L 80 16 115/70 98 08/23/20 08:56 129/73 08/23/20 08:33 84 20 08/23/20 07:40 97.4 F L 89 16 142/74 H 96 08/23/20 04:00 98 F 80 14 121/74 97 08/23/20 01:19 99 08/23/20 00:58 83 16 99 Weight 131 lb 9.6 oz - Quality Measures CV meds: Beta Valeriano: Yes, PETERSON/ARB: No (Entresto stopped for now d/t elevated C rt level), Statin: Yes, Anticoagulant: Yes (Eliquis) - Medication Contraindications No PETERSON/ARB reason: Medical contraindication (Elevated Protective Signal Repairer levels) - Physical Exam General: alert & oriented x3, no apparent distress HEENT: mucus membranes moist, normocephaly Neck: supple neck, midline trachea Cardiac: irregularly regular Lungs: clear to auscultation, no wheeze, rales, rhonchi Neuro: grossly intact Abdomen: soft, non-tender Extremities: no cyanosis, no clubbing, no edema Skin: clear Musculoskeletal: normal range of motion - Labs Result Diagrams: 08/22/20 08:52 08/22/20 16:45 Troponin/CKMB CK-MB (CK-2) 3.4 ng/mL (0-6.6) 08/20/20 13:54 Troponin I 0.058 ng/mL (< 0.028) H 08/20/20 20:54 - EKG Interpretation EKG Method: Telemetry EKG shows: atrial fibrillation - Assessment/Plan Assessment/Plan: 1. Non-ischemic cardiomyopathy 2. Paroxysmal a-fib: Patient started on PO Amiodarone yesterday, tolerating well, rate seems to be well-controlled in the 80's. HR 80, pt on BB for rate control, consider cardioversion Monday when Dr. Monroe returns, will make NPO Monday night. Patient remains on low-dose Eliquis. 3. S/P AICD 10/2019: patient has had no problems with AICD since insertion in 10/2019 4. Pneumonia: patient c/o continued shortness of breath, he states this has not worsened or increased, patient receiving IV antibiotics and steroid treatment 5. EF 15-20% in 04/2020 ECHO: Entresto on hold for now d/t elevated Protective Signal Repairer levels 2.93 (08/22/20) will re-check labs. We will maximize medications as tolerated, his BP remains well controlled at this time. 6. Non-sustained V-tach: patient had one episode of 5 beasts of NSVT this a.m. (08/23) Asymptomatic. Magnesium and Potassium levels WNL.
[2020-08-23] MEDS: cefTRIAXone\\ROCEPHIN 1 GM in Sodium Chloride 0.9% 100 ML IVPB SCH (14:40)
--- NOTE | 2020-08-23 18:23 | PDOC.HOSPP ---
- Subjective Encounter Date: 08/23/20 - Objective Vital Signs & Weight: Vital Signs (12 hours) Temp Pulse Resp BP BP Pulse Ox 08/23/20 16:05 97.6 F 86 17 102/59 L 96 08/23/20 13:09 83 18 08/23/20 11:26 97.4 F L 80 16 115/70 98 08/23/20 08:56 129/73 08/23/20 08:33 84 20 08/23/20 07:40 97.4 F L 89 16 142/74 H 96 Weight Weight 131 lb 9.6 oz I&O: 08/22/20 08/23/20 08/24/20 06:59 06:59 06:59 Intake Total 540 240 Output Total 1370 750 Balance -830 -510 Result Diagrams: 08/22/20 08:52 08/22/20 16:45 Additional Labs: Accuchecks 08/23/20 08/23/20 08/23/20 17:01 10:55 05:38 POC Glucose 168 H 185 H 80 08/22/20 20:35 POC Glucose 141 H Hospitalist ROS - Medication Medications: Active Medications Generic Name Dose Route Start Last Admin Trade Name Freq PRN Reason Stop Dose Admin Albuterol/Ipratropium 3 ml 08/21/20 01:00 08/23/20 13:09 Ipratropium/Albuterol Sulfate 3 Ml Neb NEB 3 ml [id number] DEV Administration Amiodarone HCl 200 mg 08/22/20 21:00 08/23/20 14:39 Amiodarone 200 Mg Tab PO 200 mg TID DEV Administration Apixaban 2.5 mg 08/21/20 21:00 08/23/20 08:57 Apixaban 2.5 Mg Tab PO 2.5 mg BID DEV Administration Carvedilol 6.25 mg 08/21/20 08:00 08/23/20 17:46 Carvedilol 6.25 Mg Tab PO 6.25 mg BID-WM DEV Administration Furosemide 20 mg 08/21/20 14:00 08/23/20 14:40 Furosemide 20 Mg/2 Ml Vial SLOW IVP 20 mg 0600,1400 DEV Administration Insulin Glargine 25 units/ 0.25 mls @ 0 mls/hr 08/20/20 21:00 08/23/20 08:56 Miscellaneous Medication SC 0.25 mls BID DEV Administration Azithromycin 500 mg/ Sodium 250 mls @ 250 mls/hr 08/21/20 11:00 08/23/20 11:31 Chloride IVPB 250 mls 1100 DEV Administration Ceftriaxone Sodium 1 gm/ 100 mls @ 200 mls/hr 08/21/20 14:00 08/23/20 14:40 Sodium Chloride IVPB 100 mls 1400 DEV Administration Insulin Human Lispro 0 units 08/20/20 18:34 08/23/20 17:49 Humalog 300 Units/3 Ml Vial SC 2 unit .MODERATE SLIDING SC PRN Administration Moderate Correctional Scale Melatonin 6 mg 08/20/20 22:32 08/23/20 02:11 Melatonin 3 Mg Tab PO 6 mg HS PRN Administration Insomnia Methylprednisolone 4 mg 08/23/20 08:00 08/23/20 17:45 Methylprednisolone 4 Mg Tablet PO 08/23/20 21:01 4 mg 0800,1200,1700,2100 DEV Administration Miscellaneous Medication 1 gm 08/21/20 08:00 08/23/20 17:45 Icosapent Ethyl 1 Gm Capsule PO 1 gm BID-WM DEV Administration Mometasone Furoate 100 mcg 08/21/20 06:30 08/23/20 08:41 Mometasone 100 Mcg/Puff (1 Inhaler) INH 2 puff BID-RT DEV Administration Rosuvastatin Calcium 40 mg 08/20/20 21:00 08/21/20 20:16 Rosuvastatin 20 Mg Tab PO 40 mg MoThFr@2100 DEV Administration - Exam General Appearance: awake alert ENT: normocephalic atraumatic Neck: supple, no JVD Respiratory: normal chest expansion, no tachypnea Extremities: no cyanosis, no clubbing Hosp A/P (1) Acute respiratory failure with hypoxia Code(s): J96.01 - ACUTE RESPIRATORY FAILURE WITH HYPOXIA Status: Acute (2) Atrial fibrillation with RVR Code(s): I48.91 - UNSPECIFIED ATRIAL FIBRILLATION Status: Acute (3) Right middle lobe pneumonia Code(s): J18.9 - PNEUMONIA, UNSPECIFIED ORGANISM Status: Acute (4) COPD exacerbation Code(s): J44.1 - CHRONIC OBSTRUCTIVE PULMONARY DISEASE W (ACUTE) EXACERBATION Status: Acute (5) Cardiomyopathy Code(s): I42.9 - CARDIOMYOPATHY, UNSPECIFIED Status: Acute (6) HTN (hypertension) Code(s): I10 - ESSENTIAL (PRIMARY) HYPERTENSION Status: Chronic Qualifiers: Hypertension type: essential hypertension Qualified Code(s): I10 - Essential (primary) hypertension (7) Diabetes Code(s): E11.9 - TYPE 2 DIABETES MELLITUS WITHOUT COMPLICATIONS Status: Chronic Qualifiers: Diabetes mellitus type: type 2 Diabetes mellitus long term acute care registered nurse insulin use: with long term acute care registered nurse use Diabetes mellitus complication status: with kidney complications Diabetes mellitus complication detail: with chronic kidney disease Chronic kidney disease stage: stage 3 (moderate) - Plan Hypoxia due to right middle and lower lobe pneumonia in the setting of COPD. Continue nebulizer treatments, IV antibiotics, corticosteroids. Atrial fibrillation with controlled ventricular response. Continue amiodarone, BB, and Eliquis. Appreciate cardiology.
[2020-08-23] MEDS ORDERED: HumaLOG 300 UNITS/3 ML VIAL SC PRN (21:24)
[2020-08-24] MEDS: Dextrose 50% Abboject 50 ML SYRINGE SLOW IVP PRN (06:08)
[2020-08-24] MEDS: Furosemide 20 MG/2 ML VIAL SLOW IVP SCH ×2 (06:08→14:39)
[2020-08-24] MEDS: Mometasone 100 MCG/PUFF (1 INHALER) INH SCH ×2 (06:53→18:31)
[2020-08-24] MEDS: Carvedilol 6.25 MG TAB PO SCH ×2 (08:52→16:56)
[2020-08-24] MEDS: methylPREDNISolone 4 mg Tablet PO SCH ×3 (08:55→16:57)
[2020-08-24] MEDS: Icosapent Ethyl 1 GM CAPSULE PO SCH ×2 (08:55→16:55)
[2020-08-24] MEDS: Insulin Glargine 25 UNITS in Pre-Filled Syringe 1 EACH SC SCH ×2 (08:56→23:31)
[2020-08-24] MEDS: Amiodarone 200 MG TAB PO SCH ×3 (08:56→22:06)
[2020-08-24] MEDS: Apixaban 2.5 MG TAB PO SCH ×2 (08:56→22:06)
[2020-08-24 10:57] LABS: #Lymphocytes 0.8 thou/uL (1.20-3.40); #Monocytes 1.2 thou/uL (0.11-0.59); #Neutrophils 15.2 thou/uL (1.40-6.50); %Eosinophils 0.1 % (0.0-10.0); %Lymphocytes 4.4 % (21.0-51.0); %Monocytes 6.8 % (0.0-10.0); %Neutrophils 88.7 % (42.0-75.0); Hemoglobin 14.5 g/dL (14.0-18.0); Mean Corpuscular HGB CONC 31.5 g/dL (32.0-36.0); Mean Corpuscular Hemoglobin 28.4 pg (27.0-31.0); Mean Corpuscular Volume 90.1 fL (78.0-98.0); Platelet Count 128 thou/uL (130-400); RBC Distribution Width 16.5 % (11.5-14.5); Red Blood Cell (RBC) Count 5.11 mill/uL (4.70-6.10); White Blood Cell (WBC) Count 17.2 thou/uL (4.8-10.8)
[2020-08-24 11:12] LABS: Anion Gap 15 mmol/L (10-20); BUN (Urea Nitrogen) 46 mg/dL (8.4-25.7); Calc. Creatinine Clearance 21 mL/min (70-130); Calcium 9.3 mg/dL (7.8-10.44); Carbon Dioxide 26 mmol/L (23-31); Chloride 98 mmol/L (98-107); Glucose 97 mg/dL (83-110); Potassium 3.2 mmol/L (3.5-5.1); Sodium 136 mmol/L (136-145)
[2020-08-24] MEDS ORDERED: PROPOFOL 20 ML ONE (12:05)
[2020-08-24] MEDS ORDERED: Benzocaine 20% Spray 60 ML CAN ONE (12:05)
[2020-08-24] MEDS ORDERED: Potassium Chloride 20 MEQ TAB PO SCH ×2 (14:01→19:00)
[2020-08-24] MEDS ORDERED: Lidocaine 1% PF 5 ML VIAL ONE (14:03)
[2020-08-24] MEDS ORDERED: PROPOFOL 200 MG/20 ML VIAL ONE (14:03)
[2020-08-24] MEDS ORDERED: Amiodarone 150 MG in Dextrose 5% in Water 100 ML IVPB SCH (14:15)
[2020-08-24] MEDS: cefTRIAXone\\ROCEPHIN 1 GM in Sodium Chloride 0.9% 100 ML IVPB SCH (15:01)
--- NOTE | 2020-08-24 15:37 | PDOC.HOSPP ---
- Subjective Encounter Date: 08/24/20 - Objective Vital Signs & Weight: Vital Signs (12 hours) Temp Pulse Resp BP BP Pulse Ox 08/24/20 14:00 98.6 F 80 17 126/71 100 08/24/20 11:15 97.6 F 74 16 116/80 100 08/24/20 08:52 122/86 08/24/20 07:20 97.6 F 80 17 106/74 96 08/24/20 06:56 80 16 97 08/24/20 04:00 97.3 F L 80 18 131/75 99 Weight Weight 130 lb 4.8 oz I&O: 08/23/20 08/24/20 08/25/20 06:59 06:59 06:59 Intake Total 240 1080 Output Total 750 1965 Balance -510 -556 Result Diagrams: 08/24/20 10:36 08/24/20 10:37 Additional Labs: Accuchecks 08/24/20 08/24/20 08/24/20 10:52 07:08 05:52 POC Glucose 107 H 174 H 55 L* 08/23/20 08/23/20 08/21/20 21:26 17:01 05:59 POC Glucose 95 168 H 58 L* Hospitalist ROS - Medication Medications: Active Medications Generic Name Dose Route Start Last Admin Trade Name Freq PRN Reason Stop Dose Admin Albuterol/Ipratropium 3 ml 08/21/20 01:00 08/24/20 12:18 Ipratropium/Albuterol Sulfate 3 Ml Neb NEB Not Given [id number] Amiodarone HCl 200 mg 08/22/20 21:00 08/24/20 15:04 Amiodarone 200 Mg Tab PO 200 mg TID DEV Administration Apixaban 2.5 mg 08/21/20 21:00 08/24/20 08:56 Apixaban 2.5 Mg Tab PO 2.5 mg BID DEV Administration Carvedilol 6.25 mg 08/21/20 08:00 08/24/20 08:52 Carvedilol 6.25 Mg Tab PO 6.25 mg BID-WM DEV Administration Dextrose/Water 25 gm 08/20/20 18:34 08/24/20 06:08 Dextrose 50% Abboject 50 Ml Syringe SLOW IVP 25 gm PRN PRN Administration Hypoglycemia Furosemide 20 mg 08/21/20 14:00 08/24/20 14:39 Furosemide 20 Mg/2 Ml Vial SLOW IVP Not Given 0600,1400 [facility] Insulin Glargine 25 units/ 0.25 mls @ 0 mls/hr 08/20/20 21:00 08/24/20 08:56 Miscellaneous Medication SC Not Given BID DEV Azithromycin 500 mg/ Sodium 250 mls @ 250 mls/hr 08/21/20 11:00 08/23/20 11:31 Chloride IVPB 250 mls 1100 DEV Administration Ceftriaxone Sodium 1 gm/ 100 mls @ 200 mls/hr 08/21/20 14:00 08/24/20 15:01 Sodium Chloride IVPB 100 mls 1400 DEV Administration Insulin Human Lispro 0 units 08/20/20 18:34 08/23/20 17:49 Humalog 300 Units/3 Ml Vial SC 2 unit .MODERATE SLIDING SC PRN Administration Moderate Correctional Scale Melatonin 6 mg 08/20/20 22:32 08/23/20 02:11 Melatonin 3 Mg Tab PO 6 mg HS PRN Administration Insomnia Methylprednisolone 4 mg 08/24/20 08:00 08/24/20 15:02 Methylprednisolone 4 Mg Tablet PO 08/24/20 17:01 Not Given 0800,1200,1700 [facility] Miscellaneous Medication 1 gm 08/21/20 08:00 08/24/20 08:55 Icosapent Ethyl 1 Gm Capsule PO 1 gm BID-WM DEV Administration Mometasone Furoate 100 mcg 08/21/20 06:30 08/24/20 06:53 Mometasone 100 Mcg/Puff (1 Inhaler) INH 1 puff BID-RT DEV Administration Potassium Chloride 40 meq 08/24/20 14:01 08/24/20 15:03 Potassium Chloride 20 Meq Tab PO 08/24/20 16:01 40 meq NOW DEV Administration Rosuvastatin Calcium 40 mg 08/20/20 21:00 08/21/20 20:16 Rosuvastatin 20 Mg Tab PO 40 mg MoThFr@2100 [facility] Administration - Exam General Appearance: awake alert ENT: normocephalic atraumatic Neck: supple, no JVD Heart: RRR Respiratory: normal chest expansion, no tachypnea Gastrointestinal: soft Extremities: no cyanosis, no clubbing Hosp A/P (1) Acute respiratory failure with hypoxia Code(s): J96.01 - ACUTE RESPIRATORY FAILURE WITH HYPOXIA Status: Acute (2) Atrial fibrillation with RVR Code(s): I48.91 - UNSPECIFIED ATRIAL FIBRILLATION Status: Acute (3) Right middle lobe pneumonia Code(s): J18.9 - PNEUMONIA, UNSPECIFIED ORGANISM Status: Acute (4) COPD exacerbation Code(s): J44.1 - CHRONIC OBSTRUCTIVE PULMONARY DISEASE W (ACUTE) EXACERBATION Status: Acute (5) Cardiomyopathy Code(s): I42.9 - CARDIOMYOPATHY, UNSPECIFIED Status: Acute (6) HTN (hypertension) Code(s): I10 - ESSENTIAL (PRIMARY) HYPERTENSION Status: Chronic Qualifiers: Hypertension type: essential hypertension Qualified Code(s): I10 - Essential (primary) hypertension (7) Diabetes Code(s): E11.9 - TYPE 2 DIABETES MELLITUS WITHOUT COMPLICATIONS Status: Chronic Qualifiers: Diabetes mellitus type: type 2 Diabetes mellitus remote computer terminal operator insulin use: with remote computer terminal operator use Diabetes mellitus complication status: with kidney complic ations Diabetes mellitus complication detail: with chronic kidney disease Chronic kidney disease stage: stage 3 (moderate) - Plan Hypoxia due to right middle and lower lobe pneumonia in the setting of COPD. Continue nebulizer treatments, IV antibiotics, corticosteroids. Atrial fibrillation with controlled ventricular response. Continue amiodarone, BB, and Eliquis. For REGINA with cardioversion today. Appreciate EP.
[2020-08-24 16:30] LABS: ALT (SGPT) 64 U/L (8-55); AST (SGOT) 19 U/L (5-34); Albumin 2.2 g/dL (3.4-4.8); Alkaline Phosphatase 126 U/L (40-110); Anion Gap 20 mmol/L (10-20); BUN (Urea Nitrogen) 36 mg/dL (8.4-25.7); Bilirubin, Total 0.5 mg/dL (0.2-1.2); Calc. Creatinine Clearance 33 mL/min (70-130); Carbon Dioxide 19 mmol/L (23-31); Chloride 109 mmol/L (98-107); Globulin 2.7 g/dL (2.4-3.5); Glucose 46 mg/dL (83-110); Magnesium 1.4 mg/dL (1.6-2.6); Potassium 2.2 mmol/L (3.5-5.1); Protein, Total 4.9 g/dL (5.8-8.1); Sodium 146 mmol/L (136-145)
[2020-08-24 17:33] LABS: Anion Gap 17 mmol/L (10-20); BUN (Urea Nitrogen) 48 mg/dL (8.4-25.7); Calc. Creatinine Clearance 23 mL/min (70-130); Calcium 9.2 mg/dL (7.8-10.44); Carbon Dioxide 24 mmol/L (23-31); Chloride 98 mmol/L (98-107); Glucose 70 mg/dL (83-110); Potassium 3.2 mmol/L (3.5-5.1); Sodium 136 mmol/L (136-145)
[2020-08-24] MEDS: Azithromycin 500 MG in Sodium Chloride 0.9% 250 ML 250 ML IVPB SCH (17:55)
[2020-08-24] MEDS ORDERED: Magnesium Sulfate 2 GM in Sodium Chloride 0.9% 100 ML IVPB SCH (20:15)
[2020-08-24] MEDS: Rosuvastatin 20 MG TAB PO SCH (22:05)
[2020-08-24] MEDS: hydrALAZINE 10 MG TAB PO SCH (23:30)
--- NOTE | 2020-08-25 00:36 | CON ---
DATE OF CONSULTATION: 08/24/2020 REASON FOR CONSULTATION: Atrial fibrillation with RVR. PRIMARY CARE PROVIDER: Rocky Thompson MD DRY COLOR MIXER: Castro Monroe MD HISTORY OF PRESENT ILLNESS: Mr. Almonte is a 74-year-old gentleman, known to my practice for history of paroxysmal atrial fibrillation, ventricular arrhythmias including ventricular tachycardia and frequent PVCs in addition to a biventricular ICD, initially implanted in 2015 with a generator change in October 2019. He presented to the hospital with progressive dyspnea and was found to have pneumonia, which is being treated with antibiotics. He was also found to be in atrial fibrillation with RVR and was started on amiodarone. Earlier today, he underwent cardioversion, which was successful, but he quickly returned to atrial fibrillation despite having started amiodarone just a few days prior. He does feel better than when he came in with less shortness of breath. He denies any heart racing, palpitations, chest pain, pressure, syncope, near syncope, stroke, or stroke-like symptoms. He denies any bleeding dyscrasias. Recently, we have been evaluating his increasing burden of PVCs with an outpatient monitor and he is overdue for followup with multiple canceled appointments. PROBLEM LIST: 1. 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 2. History of biventricular ICD implant in 2015; generator change, 11/22/2019, [employer]. 3. Ventricular arrhythmias. a. Ventricular tachycardia. b. Frequent PVCs. 4. Paroxysmal atrial fibrillation, now persisting, chronically on Eliquis. 5. Coronary artery disease risk factors include: a. Hypertension. b. Hyperlipidemia. c. Diabetes. d. Pneumonia. ALLERGIES: NO KNOWN DRUG ALLERGIES. MEDICATIONS: 1. Medrol. 2. Levaquin. 3. Cefdinir. 4. Crestor. 5. Lantus. 6. Vascepa. 7. Lasix. 8. Trelegy Ellipta. 9. Coreg. 10. Eliquis 5 mg b.i.d. since reduced to 2.5 mg b.i.d. given weight and kidney function. REVIEW OF SYSTEMS: A 12-point review of systems otherwise unremarkable except that listed above in the HPI. FAMILY HISTORY: Noncontributory. SOCIAL HISTORY: He is , lives with his . Denies alcohol, tobacco, or illicit drug use. OBJECTIVE: VITAL SIGNS: Height 5 feet 8 inches, weight 130 pounds, BMI 19, temperature 98.6, pulse 80, blood pressure 126/71, respirations 17, oxygen 100% on room air. GENERAL: Patient is alert, oriented. Speech is clear. Affect is appropriate. He is in no apparent distress. Resting comfortably in bed at the time of the exam. His is bedside as well. HEENT: He is normocephalic, atraumatic. Sclerae anicteric. EOMs are intact. Oral mucosa is moist and pink with adequate dentition. NECK: Supple without jugular venous distention. There is no lymphadenopathy and trachea is midline. CARDIOVASCULAR: His heart rate is irregularly irregular, but not rapid. His left precordial device is noted and site is without reaction. LUNGS: Clear to auscultation bilaterally. Diminished in the bases. Respirations are even and unlabored. GI: Abdomen is soft and nontender without palpable masses. EXTREMITIES: Warm and dry to touch. Well perfused without clubbing, cyanosis, or edema. NEUROLOGIC: Grossly intact and nonfocal. Gait was not assessed. LABORATORY DATA: Chemistry: On 08/24, potassium 2.2, creatinine 1.67, magnesium 1.4. Hematology: WBC trending upward, currently 17.2; hemoglobin 14.5; platelet count is 128. On 05/10/2020, echocardiogram, LVEF 15% to 20%. DEVICE CHECK: [employer], generator change in October 2019. Lead parameters are stable with adequate capture sensing and stable impedance values. Mode is DDD with a base rate of 70, AP 33%, INSTITUTIONAL RESEARCH COORDINATOR 58%, suboptimal with high ventricular rates during AF in addition to frequent PVCs. AF burden approximately 10% since May 28, frequently with long episodes, likely persisting since early July. According to the ventricular rate histogram, ventricular rates are moderately well controlled during his mode switch in AFib, largely 70-110 beats per minute, but some RVR is noted. Otherwise, device is functioning normally. IMPRESSION: 1. Atrial fibrillation with occasional rapid ventricular response, persisting since early July. 2. 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 3. Pneumonia, being treated with antibiotics. 4. Hypokalemia. 5. Hypomagnesemia. 6. Acute on chronic kidney disease. 7. Premature ventricular contractions frequent. 8. Nonischemic cardiomyopathy with acute on chronic congestive heart failure. PLAN AND RECOMMENDATIONS: Mr. Almonte is a 74-year-old gentleman with a history of paroxysmal atrial fibrillation that is now persisting likely since at least mid July. He was started on amiodarone and cardioversion was performed earlier today, which did briefly restore sinus rhythm. Unfortunately, we see early recurrence of atrial fibrillation. Recheck of his chemistry panel this afternoon showed potassium of 2.2 and magnesium of 1.4. At this point, his amiodarone is continuing to load with just having recently been initiated over the weekend. He is minimally symptomatic with his atrial fibrillation and rate controlled at this time. Repeat cardioversion could be attempted after adequate loading has occurred. His amiodarone will suppress his atrial fibrillation in addition to his PVCs. His CHADS-VASc score is elevated at least 3 on the basis of cardiomyopathy advancing age and diabetes, currently on Eliquis 2.5 mg b.i.d. given his low weight and kidney function. Should his weight increase or kidney function improve and his creatinine be less than 1.5, reevaluation for appropriate Eliquis dose would be needed. For now, my recommendation would be for continued treatment of his pneumonia, replacement of his electrolytes for a goal potassium of greater than 4 and magnesium greater than 2 and reattempting cardioversion once adequate amiodarone loading has been completed. Thank you for allowing me to participate in the care of this patient. Job ID: [id number]
[2020-08-25 04:53] LABS: #Lymphocytes 0.7 thou/uL (1.20-3.40); #Monocytes 1.3 thou/uL (0.11-0.59); #Neutrophils 12.7 thou/uL (1.40-6.50); %Basophils 0.1 % (0.0-1.0); %Lymphocytes 4.5 % (21.0-51.0); %Monocytes 8.9 % (0.0-10.0); %Neutrophils 86.5 % (42.0-75.0); Hemoglobin 13.3 g/dL (14.0-18.0); Mean Corpuscular HGB CONC 31.4 g/dL (32.0-36.0); Mean Corpuscular Hemoglobin 28.3 pg (27.0-31.0); Mean Corpuscular Volume 90.2 fL (78.0-98.0); Mean Platelet Volume 12.6 fL (7.4-10.4); Platelet Count 108 thou/uL (130-400); RBC Distribution Width 16.6 % (11.5-14.5); White Blood Cell (WBC) Count 14.7 thou/uL (4.8-10.8)
[2020-08-25 05:17] LABS: Anion Gap 15 mmol/L (10-20); BUN (Urea Nitrogen) 48 mg/dL (8.4-25.7); Calc. Creatinine Clearance 23 mL/min (70-130); Calcium 8.8 mg/dL (7.8-10.44); Carbon Dioxide 26 mmol/L (23-31); Chloride 98 mmol/L (98-107); Glucose 203 mg/dL (83-110); Magnesium 2.7 mg/dL (1.6-2.6); Potassium 4.3 mmol/L (3.5-5.1); Sodium 135 mmol/L (136-145)
[2020-08-25] MEDS: HumaLOG 300 UNITS/3 ML VIAL SC PRN (06:26)
--- NOTE | 2020-08-25 06:34 | CON ---
DATE OF CONSULTATION: 08/24/2020 SERVICE: [facility]. REASON FOR CONSULTATION: Management of acute on chronic heart failure. HISTORY OF PRESENT ILLNESS: Mr. Durga Almonte, 74-year-old gentleman with known heart failure and paroxysmal atrial fibrillation, presents for readmission for severe shortness of breath. Mr. Almonte has known paroxysmal atrial fibrillation. He also has heart failure with reduced ejection fraction. He had a FARM MACHINERY SET UP MECHANIC-D device. He was doing fairly well and able to walk a block as late as about 2 months ago. Then about the 2nd week of July, he noticed that he had onset of palpitations. Since then, he has been deteriorating. On August 16, he was admitted for severe shortness of breath. He was found to have pneumonia. He was treated with IV antibiotics. IV antibiotics were converted to oral antibiotics and sent home. He said that his shortness of breath worsened at home. After staying at home for two days, it became intolerable. Then, he came back to the hospital. With readmission, he was found to be in atrial fibrillation. He also has short runs of nonsustained ventricular tachycardia. He says his shortness of breath really did not improve. However, his oxygen saturation has been good about 99% to 100% on room air. He generally feels weak and tired, cannot really move much. His chronic renal insufficiency remains bad with creatinine close to about 3.0. Today, he underwent transesophageal echocardiogram and direct current cardioversion. The REGINA showed the EF around 10% and there was no thrombus in the left atrial appendage. Cardioversion was successful. However, he stayed in sinus rhythm for about 2 hours. About 2:30 p.m. in the afternoon, he flipped back into atrial fibrillation. PAST MEDICAL HISTORY: Includes; 1. Heart failure with reduced ejection fraction with [employer] device for FARM MACHINERY SET UP MECHANIC-D. 2. Paroxysmal atrial fibrillation that could be sometimes persistent. 3. Hypertension in the past. 4. Diabetes. 5. Hyperlipidemia. SOCIAL HISTORY: 1. He stopped smoking at age 26. Thus, he is a nonsmoker essentially. 2. Alcohol use: He has occasional alcohol use. 3. Drugs: He denies any illicit drug use. 4. He has been for over 30 years. He lives with . FAMILY HISTORY: 1. His father of myocardial infarction at 74. 2. His mother of diabetes at age 94. 3. He has four brothers, some of them have diabetes. 4. He has four sisters, some them have diabetes also. REVIEW OF SYSTEMS: GENERAL: He is very fatigued. HEENT: There is no change in vision, hearing, or swallowing. PULMONARY: Please see HPI. CARDIAC: Please see HPI. GI: There is no nausea, vomiting, or diarrhea, but he has loss of appetite. : He seemed to be incontinent. MUSCULOSKELETAL: There is no complaint of muscle or joint pains. INTEGUMENT: There is no report of skin breakdown. NEUROLOGIC: There are no focal deficits or weaknesses. CURRENT MEDICATIONS: Include; 1. Amiodarone 200 mg three times a day. 2. Apixaban 2.5 mg p.o. b.i.d. 3. Azithromycin 500 mg IV daily. 4. Carvedilol 6.25 mg twice a day. 5. Ceftriaxone 1 g IV daily. 6. Furosemide 20 mg IV twice a day. 7. Insulin glargine 25 units daily. 8. Lispro insulin sliding scale. 9. Methylprednisolone 4 mg p.o. daily. 10. Vascepa 1 g p.o. b.i.d. 11. Mometasone furoate 100 mcg inhale twice a day. 12. Rosuvastatin 40 mg p.o. at bedtime. Telemetry was reviewed. He was in atrial fibrillation. There were at least 5 beats of ventricular tachycardia overnight. He went into sinus rhythm, but then he reverted back to atrial fibrillation. He is right now most likely in VVIR mode, rate of 80. PHYSICAL EXAMINATION: VITAL SIGNS: His latest vitals are heart rate approximately 80, which is paced; with a blood pressure of 122/86; his oxygen saturation is 100% on room air. GENERAL: He is very gaunt and fatigued looking. He just want to go to sleep. HEENT: Showed EOMI. Oropharynx has dry appearing mucosa. NECK: His JVP is approximately 9 cm. Positive hepatojugular reflux. PULMONARY: He has surprisingly good air movement. There are no overt crackles. There is a slight decrease in breath sounds on the right base. HEART: Sometimes regular, sometimes irregular. It is overall irregularly irregular. There is normal S1 and S2, there is 2/6 holosystolic murmur at the apex. There is also 1/6 diastolic murmur at the right sternal border. ABDOMEN: Soft, nontender. Positive bowel sounds. EXTREMITIES: Lower extremities, there is a good femoral pulse. There is minimal or no edema. There are palpable dorsalis pedis pulses. However, his lower extremities and his hands are cold. He is overall cold. LABORATORY VALUES: Include white cell count 17.2, hemoglobin of 14.5, and platelet count at 128. His chemistry shows sodium 136, potassium 3.2, bicarb 26, BUN 46, creatinine 2.56. PROCEDURE His FARM MACHINERY SET UP MECHANIC-D device was interrogated reprogrammed. 1. It is a [employer] type inspector, [employer] [id number] FARM MACHINERY SET UP MECHANIC-D with serial number of [id number]. 2. It has atrial lead, right ventricular lead, and a left ventricular lead. 3. It is in DDD mode with mode switch. If it encounters atrial fibrillation, it will mode switch to 80 beats per minute at VVI mode with encounter of atrial fibrillation. 4. Examination of the EGM shows that he is in fast atrial fibrillation with AFib rates over 300. 5. There is a 14% atrial fibrillation burden, percentage of atrial fibrillation between mid March through July was zero. However, about week of July, he had many episodes of atrial fibrillation until it became persistent in late July of 2020. 6. There are also multiple episodes of what was interpreted as ventricular tachycardia on August 21, however, none of those required therapy. 7. Reprogram: atrial fibrillation suppression option of 40 paced beats is now enabled. His echocardiogram from May 10, 2020, was also reviewed. 1. His left ventricle is dilated. His LVIDd was measured at 5.4 cm, however, this is mis-measurement, it is actually much bigger than 5.4 cm. 2. His left ventricular ejection fraction is 10%. 3. He has moderate mitral regurgitation. 4. He has severe diastolic dysfunction with E prime value of 0.04. 5. He also has moderate aortic regurgitation. 6. His right ventricle appears to be normal size and has normal function. His chest x-rays and CT scan suggest that he also has pneumonia. ASSESSMENT: A 74-year-old gentleman, has multiple severe diseases. By chest x-ray, CT scan, and white blood cell count suggest that he does have ongoing pneumonia. He also has atrial fibrillation that occurred about 2nd week of July. This correlated with his heart failure decompensation. Thus, atrial fibrillation contributed to his heart failure decompensation. He has acute on chronic heart failure with reduced ejection fraction. He has both systolic and diastolic dysfunctions. It is likely to be a nonischemic cardiomyopathy because he dos not have a history of coronary artery disease. If he can be restored to sinus rhythm, he will do much better. He also has low potassium of 3.2. His magnesium has not been checked. Thus, he will need correction of electrolyte before another cardioversion could be attempted. He has symptoms and exam features of low cardiac output. His BNP value from August 20 was 13,580. This is extremely high. This attests to his severe heart failure. Thus, he may benefit from milrinone to increase his cardiac output. So, we will need to address his problems in totality. These include treating his pneumonia, correct his electrolytes, increase antiarrhythmics, and augment his cardiac function. Please see the following for my detailed recommendations; RECOMMENDATIONS: 1. Please place PICC now, because he will need this for aggressive electrolyte replacement and possible multiple drips. 2. Please replace potassium, keep potassium above 4. 3. Give K-Dur 40 mEq one dose now. 4. We will switch from carvedilol 6.25 mg q.12 hours to Toprol-XL 12.5 mg p.o. q.12 hours. This will increase rate control. 5. Please give amiodarone 150 mg IV one dose now over 1 hour. It is hoped that this can facilitate possible conversion back to sinus rhythm. 6. Please check for complete metabolic panel, magnesium, and also lactic acid. This will indicate severity of low cardiac output. 7. We will consider starting milrinone at 0.125. If his systolic blood pressure stays above 100 for 2 hours, we will increase to 0.25 mcg/kg per minute. The goal of this is to help improve cardiac output to perfuse kidneys. It will also decrease the shortness of breath. However, we will wait until the electrolyte has been replaced and the labs come back before we start this. Conversely, if his BP is marginal, will start dobutamine instead. 8. Once the electrolytes are stable and also amiodarone is loaded to a greater degree, than we will attempt to perform our cardioversion. 9. It will be nice if left ventricular assist device consideration could be done. However, with his ongoing pneumonia, this would not be a good choice at this point. It has been a pleasure taking care of Mr. Almonte. If you have any questions, please give me a call. This visit took about 80 minutes. This includes personally performing history and physical, interrogating FARM MACHINERY SET UP MECHANIC-D device, reading echocardiogram, and coordinating care with Medical Service, and explaining and counseling the patient. Job ID: [id number] MTDD
[2020-08-25] MEDS: Mometasone 100 MCG/PUFF (1 INHALER) INH SCH ×2 (07:32→18:56)
--- NOTE | 2020-08-25 08:06 | OP ---
DATE OF PROCEDURE: 08/24/2020 PROCEDURE PERFORMED: Transesophageal echocardiogram. INDICATIONS FOR PROCEDURE: A 74-year-old gentleman with mitral regurgitation and atrial fibrillation. DESCRIPTION OF PROCEDURE: The patient was taken to the PACU and the patient was sedated by Anesthesiology. A transesophageal probe was placed into the distal esophagus and stomach. Echocardiographic images were obtained. The transesophageal probe was removed. FINDINGS: 1. Severe decrease in left ventricular systolic function. 2. Left ventricle is markedly dilated. 3. Left atrial enlargement. 4. [id number] mitral regurgitation. 5. Mild aortic valve leaflets are thickened with a mild reduction in leaflet excursion. 6. Mild aortic stenosis. 7. Mild aortic regurgitation. 8. Mild tricuspid regurgitation. 9. No spontaneous contrast was noted in the left atrial appendage. 10. No formed thrombus in left atrium or left atrial appendage. 11. Defibrillator wire noted in the right ventricle. 12. Atherosclerotic debris in the descending aorta. IMPRESSION: [id number] mitral regurgitation with no formed thrombus noted in the left atrial appendage. Job ID: [id number] [facility]
--- NOTE | 2020-08-25 08:07 | OP ---
DATE OF PROCEDURE: 08/24/2020 PROCEDURE PERFORMED: Electrocardioversion. INDICATIONS: A 74-year-old gentleman with paroxysmal atrial fibrillation. DESCRIPTION OF PROCEDURE: The patient was taken to the PACU. The patient was sedated by Anesthesiology. The patient was shocked with 200 joules synchronized electricity. The patient converted to normal sinus rhythm. IMPRESSION: Successful electrocardioversion. Job ID: [id number]
[2020-08-25] MEDS: Insulin Glargine 25 UNITS in Pre-Filled Syringe 1 EACH SC SCH ×2 (09:46→21:57)
[2020-08-25] MEDS: hydrALAZINE 10 MG TAB PO SCH ×3 (09:47→22:38)
[2020-08-25] MEDS: Icosapent Ethyl 1 GM CAPSULE PO SCH ×2 (09:47→18:15)
[2020-08-25] MEDS: Amiodarone 200 MG TAB PO SCH ×3 (09:47→21:57)
[2020-08-25] MEDS: Furosemide 40 MG TAB PO SCH (09:47)
[2020-08-25] MEDS: Apixaban 2.5 MG TAB PO SCH ×2 (09:47→21:57)
[2020-08-25] MEDS: methylPREDNISolone 4 mg Tablet PO SCH ×2 (09:47→18:15)
--- NOTE | 2020-08-25 09:59 | SPC ---
Exam: Rightupper extremity ultrasound guided PICC line HISTORY: TPN, IV antibiotics Exposure:0.2 minutes, 425 mg/sq cm FINDINGS: Lumen: Singlelumen Trim length: 41 cm Distal tip:Caval atrial junction Catheter flushes and aspirates without difficulty TECHNIQUE: Consent obtained to perform a right upper extremity PICC line with ultrasound guidance. R ightarm was prepped and draped in a sterile fashion. 1% lidocaine, buffered with sodium bicarbonate was used for local anesthesia. Under ultrasound guidance, micropuncture needle was used to cannulate thebasilicvein. A 0.018 guidewire was advanced through the needle to level of the superior vena cava. Single lumen flushes and aspirates without difficulty. Patient tolerated the procedure well. No immediate or postprocedure complications IMPRESSION: Successfulrightupper surgery PICC line placement with ultrasound guidance
[2020-08-25 10:19] LABS: Hemoglobin 14.2 g/dL (14.0-18.0); Platelet Count 112 thou/uL (130-400)
[2020-08-25] MEDS: Azithromycin 500 MG in Sodium Chloride 0.9% 250 ML 250 ML IVPB SCH (11:25)
[2020-08-25] MEDS: DOBUTamine 500 mg/250 ml 500 MG in Premix Bag 1 BAG IVPB SCH (11:26)
--- NOTE | 2020-08-25 11:37 | PRG ---
DATE OF SERVICE: 08/25/2020 SERVICE: Advanced Heart Failure Transplant Cardiology Consult Service. SUBJECTIVE: Mr. Almonte seems to be improving. He is well rate controlled with amiodarone 200 mg 3 times a day plus one bolus of amiodarone 150 mg IV. His electrolytes were aggressively corrected. His pneumonia was also treated. He said because of all that, he is feeling better today, more energetic, and breathing easier. Of note, there was no diuretic given yesterday because of low blood pressure and potential septic state. REVIEW OF SYSTEMS: GENERAL: There is no fevers, chills, or productive cough. HEENT: There is no change in vision, hearing, or swallowing. GASTROINTESTINAL: There is no nausea, vomiting, or diarrhea. GENITOURINARY: He may be incontinent. MUSCULOSKELETAL: There are no complaints of muscle or joint pain. INTEGUMENT: There is no skin breakdown. NEUROLOGIC: There are no new focal deficits or weaknesses. CURRENT MEDICATIONS: Include, 1. Albuterol/ipratropium nebs q.6 hours. 2. Amiodarone 200 mg 3 times a day. 3. Apixaban 2.5 mg b.i.d. 4. Azithromycin 500 mg daily. 5. Ceftriaxone 1 g IV daily. 6. Lasix 40 mg p.o. daily. 7. Hydralazine at 10 mg p.o. t.i.d. 8. Medrol at 4 mg p.o. daily. 9. Toprol-XL at 12.5 mg p.o. q.12 hours. 10. Vascepa 1 g p.o. b.i.d. 11. Mometasone furoate 100 mcg inhale b.i.d. 12. Rosuvastatin 40 mg p.o. at bedtime. OBJECTIVE: TELEMETRY: Reviewed. It is paced rate at 80. However, there is some atrial fibrillation breakthrough from interrogation yesterday. His underlying rhythm is atrial fibrillation. There were no concerning arrhythmias. VITAL SIGNS: His latest vital signs are heart rate paced at 80 and blood pressure 113/70. His ins and outs yesterday were 1300 in and 900 out with net positive 400. GENERAL: He is alert, conversational, more energetic, and relaxed than yesterday. He is much more conversational today. HEENT: Show EOMI. Oropharynx is benign. NECK: His JVP is more elevated today at 9 cm with positive hepatojugular reflux. PULMONARY: There is good air movement bilaterally. There is also a new appearance of bibasilar crackles. CARDIAC: There is a combination of regular and irregularity. There is S1 and S2. There is 2/6 holosystolic murmur at the apex with radiation to the left axilla. There is also 1/6 diastolic murmur at the right sternal border. Thus, he has mitral regurgitation and also aortic regurgitation. ABDOMEN: Soft and nontender. Positive bowel sounds. EXTREMITIES: Lower extremities are without edema. LABORATORY VALUES: Sodium 135, potassium 4.3, chloride at 98, BUN of 48, and creatinine of 2.4, it is slightly worse than yesterday, so withholding diuretic did not help. Magnesium 2.7. However, the BNP has decreased from 13,580 down to 2676 that is extremely large decrease. ASSESSMENT: 74-year-old gentleman has combination of pneumonia, acute on chronic heart failure with reduced ejection fraction, and renal dysfunction. He seems to be improving from history of pneumonia perspective with combination of antibiotic treatment of ceftriaxone and also azithromycin. He is currently stable with cardiac status. However, as seen by his BUN and creatinine, he will need increased cardiac output to improve his renal function. He has likely [place] Heart Association stage D, [place] Heart Association class 3B heart failure with reduced ejection fraction. His left ventricular ejection fraction is only 10%. Fortunately, his right ventricular function seems to be intact. So consequently, if we recover his renal function, another program might consider him for left ventricular assist device. At this point with left ejection fraction only 10% and this long-standing heart failure, there is lower chance of getting better. Thus, transferring to a different center for left ventricular assist device would be a possibility. RECOMMENDATIONS: 1. Start dobutamine at 2.5 mcg/kg/minute. 2. I was going to give Lasix 40 mg IV one dose at 3 hours after his dobutamine started. However, since the oral Lasix has been given, we will hold IV Lasix for today. 3. We will need to be careful with hydralazine because he has low blood pressure. In the future if we want to make the conversion from dobutamine to Milrinone, then hydralazine will need to be stopped. 4. Hopefully, we can make the conversion from dobutamine to milrinone once the blood pressure recovered some and the creatinine improved, and the pneumonia further resolved. 5. I will attempt to contact either [facility] or [facility] about potential LVAD evaluation on this patient. 6. Please aggressively supplement his electrolytes to make sure potassium is above 4 and magnesium is above 2. It has been a pleasure taking care of Mr. Almonte. If you have any questions, please give me a call. The time for this visit is 40 minutes. Job ID: [id number] MTDD
[2020-08-25] MEDS: cefTRIAXone\\ROCEPHIN 1 GM in Sodium Chloride 0.9% 100 ML IVPB SCH (15:11)
--- NOTE | 2020-08-25 16:05 | PDOC.HOSPP ---
- Subjective Encounter Date: 08/25/20 Subjective: The patient denies chest pain endorsed some cough or shortness of breath. - Objective Vital Signs & Weight: Vital Signs (12 hours) Temp Pulse Resp BP Pulse Ox 08/25/20 12:50 80 16 98 08/25/20 11:35 98 F 80 18 119/56 L 97 08/25/20 07:47 97.8 F 80 16 113/70 100 08/25/20 07:45 100 08/25/20 07:34 78 16 98 08/25/20 04:00 98.3 F 80 22 H 107/62 94 L Weight Weight 134 lb 14.4 oz I&O: 08/24/20 08/25/20 08/26/20 06:59 06:59 06:59 Intake Total 1080 1300 Output Total 1965 900 Balance -885 400 Result Diagrams: 08/25/20 09:47 08/25/20 09:47 Additional Labs: Accuchecks 08/25/20 08/25/20 08/24/20 10:37 05:41 20:41 POC Glucose 81 177 H 242 H 08/24/20 16:39 POC Glucose 77 Hospitalist ROS - Medication Medications: Active Medications Generic Name Dose Route Start Last Admin Trade Name Freq PRN Reason Stop Dose Admin Albuterol/Ipratropium 3 ml 08/21/20 01:00 08/25/20 12:50 Ipratropium/Albuterol Sulfate 3 Ml Neb NEB 3 ml [id number] DEV Administration Amiodarone HCl 200 mg 08/22/20 21:00 08/25/20 15:12 Amiodarone 200 Mg Tab PO 200 mg TID DEV Administration Apixaban 2.5 mg 08/21/20 21:00 08/25/20 09:47 Apixaban 2.5 Mg Tab PO 2.5 mg BID DEV Administration Dextrose/Water 25 gm 08/20/20 18:34 08/24/20 06:08 Dextrose 50% Abboject 50 Ml Syringe SLOW IVP 25 gm PRN PRN Administration Hypoglycemia Furosemide 40 mg 08/25/20 07:30 08/25/20 09:47 Furosemide 40 Mg Tab PO 40 mg DAILY-AC DEV Administration Hydralazine HCl 10 mg 08/24/20 21:00 08/25/20 14:52 Hydralazine 10 Mg Tab PO Not Given TID DEV Insulin Glargine 25 units/ 0.25 mls @ 0 mls/hr 08/20/20 21:00 08/25/20 09:46 Miscellaneous Medication SC Not Given BID DEV Azithromycin 500 mg/ Sodium 250 mls @ 250 mls/hr 08/21/20 11:00 08/25/20 11:25 Chloride IVPB 250 mls 1100 DEV Administration Ceftriaxone Sodium 1 gm/ 100 mls @ 200 mls/hr 08/21/20 14:00 08/25/20 15:11 Sodium Chloride IVPB 100 mls 1400 DEV Administration Dobutamine HCl/Dextrose 500 mg 250 mls @ 4.589 mls/hr 08/25/20 11:00 08/25/20 11:26 / Device IVPB 250 mls INF DEV Administration Protocol 2.5 MCG/KG/MIN Insulin Human Lispro 0 units 08/20/20 18:34 08/25/20 06:26 Humalog 300 Units/3 Ml Vial SC 2 unit .MODERATE SLIDING SC PRN Administration Moderate Correctional Scale Melatonin 6 mg 08/20/20 22:32 08/23/20 02:11 Melatonin 3 Mg Tab PO 6 mg HS PRN Administration Insomnia Methylprednisolone 4 mg 08/25/20 08:00 08/25/20 09:47 Methylprednisolone 4 Mg Tablet PO 08/25/20 17:01 4 mg 0800,1700 DEV Administration Metoprolol Succinate 12.5 mg 08/25/20 09:00 08/25/20 09:48 Metoprolol Succinate Xl 25 Mg Tab PO 12.5 mg Q12HR DEV Administration Miscellaneous Medication 1 gm 08/21/20 08:00 08/25/20 09:47 Icosapent Ethyl 1 Gm Capsule PO 1 gm BID-WM DEV Administration Mometasone Furoate 100 mcg 08/21/20 06:30 08/25/20 07:32 Mometasone 100 Mcg/Puff (1 Inhaler) INH 1 puff BID-RT DEV Administration Rosuvastatin Calcium 40 mg 08/20/20 21:00 08/24/20 22:05 Rosuvastatin 20 Mg Tab PO 40 mg MoThFr@2100 DEV Administration - Exam General Appearance: awake alert ENT: normocephalic atraumatic Neck: supple, no JVD Heart: RRR Respiratory: normal chest expansion, no tachypnea, rhonchi Extremities: no cyanosis, no clubbing Hosp A/P (1) Acute respiratory failure with hypoxia Code(s): J96.01 - ACUTE RESPIRATORY FAILURE WITH HYPOXIA Status: Acute (2) Atrial fibrillation with RVR Code(s): I48.91 - UNSPECIFIED ATRIAL FIBRILLATION Status: Acute (3) Right middle lobe pneumonia Code(s): J18.9 - PNEUMONIA, UNSPECIFIED ORGANISM Status: Acute (4) COPD exacerbation Code(s): J44.1 - CHRONIC OBSTRUCTIVE PULMONARY DISEASE W (ACUTE) EXACERBATION Status: Acute (5) Cardiomyopathy Code(s): I42.9 - CARDIOMYOPATHY, UNSPECIFIED Status: Acute (6) HTN (hypertension) Code(s): I10 - ESSENTIAL (PRIMARY) HYPERTENSION Status: Chronic Qualifiers: Hypertension type: essential hypertension Qualified Code(s): I10 - Essential (primary) hypertension (7) Diabetes Code(s): E11.9 - TYPE 2 DIABETES MELLITUS WITHOUT COMPLICATIONS Status: Chronic Qualifiers: Diabetes mellitus type: type 2 Diabetes mellitus intermediate teacher insulin use: with intermediate teacher use Diabetes mellitus complication status: with kidney complications Diabetes mellitus complication detail: with chronic kidney disease Chronic kidney disease stage: stage 3 (moderate) - Plan Hypoxia due to right middle and lower lobe pneumonia in the setting of COPD. Continue nebulizer treatments, IV antibiotics, corticosteroids. The patient is no longer hypoxic and antibiotics can likely be discontinued within the next 24 to 48 hours. Atrial fibrillation with controlled ventricular response. Continue amiodarone, BB, and Eliquis. Status post cardioversion that was only temporary successful in maintaining sinus rhythm. Cardiology started dobutamine due to renal failure with low EF.
--- NOTE | 2020-08-25 16:11 | PDOC.EP ---
- Subjective Date: 08/25/20 Time: 08:00 Interval History: he feels fair this morning. He has had no significant or adverse cardiac events overnight. his breathing is improving day by day. He denies any heart racing, palpitations, stroke or stroke-like symptoms or perceived ICD discharges - Review of Systems Constitutional: reports: weakness. denies: chills, fever, malaise, sweats Respiratory: reports: cough, shortness of breath. denies: dry, hemoptysis, pleuritic pain, sputum, wheezing Cardiology: denies: chest pain, edema, heart racing, light headedness, palpitations, passing out Gastrointestinal: denies: abdominal pain, constipation, vomitting Musculoskeletal: denies: unstable gait, falls, leg pain - Objective Allergies/Adverse Reactions: Allergies Allergy/AdvReac Type Severity Reaction Status Date / Time No Known Allergies Allergy Verified 05/10/20 10:06 Current Medications Acetaminophen (Acetaminophen 325 Mg Tab) 650 mg PO Q4H PRN PRN Reason: Headache/Fever/Mild Pain (1-3) Albuterol/Ipratropium (Ipratropium/Albuterol Sulfate 3 Ml Neb) 3 ml NEB [id number] [facility] Last Admin: 08/25/20 12:50 Dose: 3 ml Documented by: Amiodarone HCl (Amiodarone 200 Mg Tab) 200 mg PO TID [facility] Last Admin: 08/25/20 15:12 Dose: 200 mg Documented by: Apixaban (Apixaban 2.5 Mg Tab) 2.5 mg PO BID [facility] Last Admin: 08/25/20 09:47 Dose: 2.5 mg Documented by: Dextrose/Water (Dextrose 50% Abboject 50 Ml Syringe) 25 gm SLOW IVP PRN PRN PRN Reason: Hypoglycemia Last Admin: 08/24/20 06:08 Dose: 25 gm Documented by: Furosemide (Furosemide 40 Mg Tab) 40 mg PO DAILY-AC [facility] Last Admin: 08/25/20 09:47 Dose: 40 mg Documented by: Glucagon (Glucagon 1 Mg/Ml Vial) 1 mg IM PRN PRN PRN Reason: Hypoglycemia Hydralazine HCl (Hydralazine 10 Mg Tab) 10 mg PO TID [facility] Last Admin: 08/25/20 14:52 Dose: Not Given Documented by: Dextrose/Water (D5w) 1,000 mls @ 0 mls/hr IV .Q0M PRN PRN Reason: Hypoglycemia Insulin Glargine 25 units/ (Miscellaneous Medication) 0.25 mls @ 0 mls/hr SC BID [facility] Last Admin: 08/25/20 09:46 Dose: Not Given Documented by: Azithromycin 500 mg/ Sodium (Chloride) 250 mls @ 250 mls/hr IVPB 1100 [facility] Last Admin: 08/25/20 11:25 Dose: 250 mls Documented by: Ceftriaxone Sodium 1 gm/ (Sodium Chloride) 100 mls @ 200 mls/hr IVPB 1400 [facility] Last Admin: 08/25/20 15:11 Dose: 100 mls Documented by: Dobutamine HCl/Dextrose 500 mg (/ Device) 250 mls @ 4.589 mls/hr IVPB INF [facility]; Protocol Last Admin: 08/25/20 11:26 Dose: 250 mls Documented by: Insulin Human Lispro (Humalog 300 Units/3 Ml Vial) 0 units SC .MODERATE SLIDING SC PRN PRN Reason: Moderate Correctional Scale Last Admin: 08/25/20 06:26 Dose: 2 unit Documented by: Insulin Human Lispro (Humalog 300 Units/3 Ml Vial) 0 units SC .BEDTIME SLIDING SC PRN PRN Reason: Bedtime Correctional Scale Melatonin (Melatonin 3 Mg Tab) 6 mg PO HS PRN PRN Reason: Insomnia Last Admin: 08/23/20 02:11 Dose: 6 mg Documented by: Methylprednisolone (Methylprednisolone 4 Mg Tablet) 4 mg PO 0800,1700 [facility] Stop: 08/25/20 17:01 Last Admin: 08/25/20 09:47 Dose: 4 mg Documented by: Methylprednisolone (Methylprednisolone 4 Mg Tablet) 4 mg PO 0800 [facility] Stop: 08/26/20 08:01 Metoprolol Succinate (Metoprolol Succinate Xl 25 Mg Tab) 12.5 mg PO Q12HR [facility] Last Admin: 08/25/20 09:48 Dose: 12.5 mg Documented by: Miscellaneous Medication (Icosapent Ethyl 1 Gm Capsule) 1 gm PO BID-WM [facility] Last Admin: 08/25/20 09:47 Dose: 1 gm Documented by: Mometasone Furoate (Mometasone 100 Mcg/Puff (1 Inhaler)) 100 mcg INH BID-RT [facility] Last Admin: 08/25/20 07:32 Dose: 1 puff Documented by: Rosuvastatin Calcium (Rosuvastatin 20 Mg Tab) 40 mg PO MoThFr@2100 DEV Last Admin: 08/24/20 22:05 Dose: 40 mg Documented by: Vital Signs & Weight: Vital Signs Temp Pulse Resp BP Pulse Ox 08/25/20 12:50 80 16 98 08/25/20 11:35 98 F 80 18 119/56 L 97 08/25/20 07:47 97.8 F 80 16 113/70 100 08/25/20 07:45 100 08/25/20 07:34 78 16 98 Weight 134 lb 14.4 oz I/O: I/O 08/24/20 08/25/20 08/26/20 06:59 06:59 06:59 Intake Total 1080 1300 Output Total 1965 900 Balance -885 400 - Quality Measures Condition: Atrial Fibrillation/Flutter (hx or current) CV meds: Eliquis: Yes - Physical Exam General: alert & oriented x3, appears well, speech clear HEENT: mucus membranes moist, normocephaly Neck: supple neck, midline trachea, no lymphadenopathy Cardiology: regular rate, irregularly irregular Lungs: clear to auscultation, normal breath sounds, no wheeze, rales, rhonchi Neurology: cranial nerve 2-12 intact, grossly intact, no lateralizing findings Abdomen: unremarkable, active bowel sounds, no pulsations/bruits Extremities: dry, strong pulses, warm - Labs Result Diagrams: 08/25/20 09:47 08/25/20 09:47 - EKG Interpretation EKG Method: Telemetry EKG shows: Atrial fibrillation - Assessment/Plan Assessment/Plan: 1. Atrial fibrillation with occasional rapid ventricular response, persisting since early July. 2. 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 3. Pneumonia, being treated with antibiotics. 4. Hypokalemia. 5. Hypomagnesemia. 6. Acute on chronic kidney disease. 7. Premature ventricular contractions frequent. 8. Nonischemic cardiomyopathy with acute on chronic congestive heart failure. rate controlled atrial fibrillation with heart rates in the 80s. He continues on amiodarone loading taper, currently 200 mg t.i.d. His pneumonia is resolving with continued antibiotics and his WBC is now trending down. his electrolytes have been replaced, now within acceptable ranges. continue amiodarone loading and consider repeat attempted cardioversion, possibly as an outpatient in 1-2 weeks time. continue OAC on Eliquis. his current weight of 134 lb is right at the cutoff for reduced dose Eliquis. If he gains weight or his kidney function recovers he needs to get back on Eliquis 5 mg b.i.d. as 2.5 mg b.i.d. will then be inadequate.
[2020-08-26 04:46] LABS: #Lymphocytes 0.9 thou/uL (1.20-3.40); #Neutrophils 13.2 thou/uL (1.40-6.50); %Lymphocytes 6.1 % (21.0-51.0); %Monocytes 6.3 % (0.0-10.0); %Neutrophils 87.5 % (42.0-75.0); Hemoglobin 13.4 g/dL (14.0-18.0); Mean Corpuscular HGB CONC 31.6 g/dL (32.0-36.0); Mean Corpuscular Hemoglobin 28.4 pg (27.0-31.0); Platelet Count 112 thou/uL (130-400); RBC Distribution Width 16.6 % (11.5-14.5); Red Blood Cell (RBC) Count 4.74 mill/uL (4.70-6.10); White Blood Cell (WBC) Count 15.1 thou/uL (4.8-10.8)
[2020-08-26 05:10] LABS: Anion Gap 18 mmol/L (10-20); BUN (Urea Nitrogen) 54 mg/dL (8.4-25.7); Calc. Creatinine Clearance 26 mL/min (70-130); Calcium 8.7 mg/dL (7.8-10.44); Carbon Dioxide 17 mmol/L (23-31); Chloride 100 mmol/L (98-107); Glucose 184 mg/dL (83-110); Magnesium 2.3 mg/dL (1.6-2.6); Potassium 3.9 mmol/L (3.5-5.1); Sodium 131 mmol/L (136-145)
[2020-08-26] MEDS: Acetaminophen 325 MG TAB PO PRN ×2 (06:08→20:13)
[2020-08-26] MEDS: HumaLOG 300 UNITS/3 ML VIAL SC PRN (06:09)
[2020-08-26] MEDS ORDERED: methylPREDNISolone 4 mg Tablet PO SCH (08:00)
[2020-08-26] MEDS: Mometasone 100 MCG/PUFF (1 INHALER) INH SCH ×2 (08:12→18:36)
[2020-08-26] MEDS: Apixaban 2.5 MG TAB PO SCH ×2 (09:03→20:12)
[2020-08-26] MEDS: Amiodarone 200 MG TAB PO SCH ×3 (09:03→20:12)
[2020-08-26] MEDS: Insulin Glargine 25 UNITS in Pre-Filled Syringe 1 EACH SC SCH ×2 (09:04→22:21)
[2020-08-26] MEDS: Icosapent Ethyl 1 GM CAPSULE PO SCH ×2 (09:04→16:47)
[2020-08-26] MEDS: Furosemide 40 MG TAB PO SCH (09:11)
--- NOTE | 2020-08-26 09:21 | PRG ---
DATE OF SERVICE: 08/26/2020 SERVICE: Advanced Heart Failure Cardiology Consulting Service. SUBJECTIVE: Mr. Almonte had an excellent day. He had a low blood pressure. Dobutamine 2.5 mcg/kg per minute increased his blood pressure to the high 90s, low 100s. Afterwards he felt much more energetic and took a few steps. He was able to sleep last night. He said this is the first time that he was able to sleep well in a long time. He said he is also breathing a lot easier and no longer short of breath with dobutamine. REVIEW OF SYSTEMS: GENERAL: There is no fever, chills, productive cough. HEENT: There is no change in vision, hearing, or swallowing. CARDIAC: There is no chest pains or syncope. Pulmonary: Please see HPI. GI: There is no nausea, vomiting, or diarrhea. : He is still able to urinate on his own. MUSCULOSKELETAL: There is no muscle pains or joint pains. INTEGUMENT: There is no new skin breakdown. NEUROLOGIC: There is no focal deficits or weaknesses. CURRENT MEDICATIONS: 1. Albuterol and ipratropium nebs every 6 hours. 2. Amiodarone 200 mg three times a day. 3. Apixaban 2.5 mg b.i.d. 4. Azithromycin 500 mg daily. 5. Ceftriaxone 1 g daily. 6. Dobutamine at 2.5 mcg/kg/minute. 7. Lasix 40 mg p.o. daily. 8. Hydralazine 10 mg three times a day, but this has not been able to be given. 9. Glargine insulin 25 units daily along with sliding scale. 10. Melatonin 6 mg daily. 11. Methylprednisolone 4 mg daily. 12. Toprol-XL 12.5 mg every 12 hours. 13. Mometasone 100 mcg twice a day. 14. Rosuvastatin 40 mg at bedtime. His telemetry was reviewed. He is paced at 80 beats per minute, but the underlying rhythm is most likely atrial fibrillation. His systolic blood pressure was dropping. Dobutamine was titrated up to 5 mcg/kg/min. The last blood pressure measurement was 99/52, but dobutamine 5 mcg/kg/min increased his systolic blood pressure. PHYSICAL EXAMINATION: GENERAL: He is alert and conversational, relaxed, reclining in bed. HEENT: EOMI. Oropharynx, he has no teeth with moist mucosa. NECK: His JVP is about 9 cm. Positive hepatojugular reflux. PULMONARY: There is good air movement bilaterally. There are no crackles today. CARDIAC: Regular rate, irregular rhythm, but sometimes regular due to pacing. There is 2/6 holosystolic murmur at the apex with radiation to the left axilla. There is also 1/6 diastolic murmur at the right sternal border. ABDOMEN: Soft. There is slight fluid level, but palpation can cause some discomfort. The lower extremity without edema. There are palpable posterior tibial pulses. His input and output for the last 24 hours, 650 in and 960 out. LABORATORY DATA: His laboratory value from this morning are sodium 131, potassium 3.9, chloride 100, bicarb 17, BUN 54, creatinine 2.17 this is improvement from 2.4, and his magnesium is 2.3. ASSESSMENT: This 74-year-old gentleman resides in [place] Heart Association stage D, [place] Heart Association class 4 heart failure with reduced ejection fraction. He is in acute on chronic decompensated heart failure. Now, he is requiring dobutamine to sustain life. It is nonischemic cardiomyopathy by report. He has both systolic and diastolic dysfunctions. He also has cardiac renal syndrome. Fortunately, his renal function has improved significantly with dobutamine. He is currently near euvolemic. I will hold off diuretics today. We will focus on improving his renal function and give him Lasix as needed. He also has an uncertain amount of pulmonary infection, he does have pneumonia, so consequently, antibiotics need to be continued. He does have AFib. He would improve if he can put back to sinus rhythm. One attempt of cardioversion was made on Monday. However, he went back in AFib. We may be able to try it again since his potassium is now better and magnesium is better. Overall, he is in poor shape. He could be better served by having a left ventricular assist device. Being able to walk two months ago suggests the possibility. However, he is quite cachectic right now. It is questionable that could it be done or not. A family meeting took place. Mr. Zaragoza and his were given possible transfer locations of [place], [place], [place], and [place]. They chose [place] because family and easy living access at [place]. Mrs. Aldana also had a good experience with [facility] recently with valve replacement. Possibility the LVAD evaluation was discussed with [facility] the last night. However, [facility] was not as receptive. They want to see his renal function improved more before they will consider. I will approach [facility] today. Please see the following for my recommendation. RECOMMENDATIONS: 1. Increase dobutamine to 5 mcg/kg/minute. 2. Provide K-Dur 40 mEq one dose now. Provide K-Dur 20 mEq daily starting tomorrow. 3. Discontinue hydralazine. 4. Hold off Lasix today. 5. Also we will contact [facility] for potential urgent LVAD evaluation transfer. It has been a pleasure taking care of Mr. Almonte. If you have any questions, please give me a call. The total visitation time 60 minutes that include personally performing history and physical, holding family conference, and also coordinating care with multiple outside institutions. Job ID: [id number] MTDD
--- NOTE | 2020-08-26 10:42 | PDOC.EP ---
- Subjective Date: 08/26/20 Time: 07:30 Interval History: had a more restful night and is breathing easier. No new complaints. - Review of Systems Constitutional: denies: chills, fever, malaise, sweats, weakness Respiratory: reports: shortness of breath. denies: cough, dry, hemoptysis, pleuritic pain Cardiology: reports: paroxysmal noc. dyspnea. denies: chest pain, edema, heart racing, light headedness, orthopnea, palpitations Gastrointestinal: denies: abdominal pain, constipation, diarrhea Musculoskeletal: denies: unstable gait, falls, neck pain - Objective Allergies/Adverse Reactions: Allergies Allergy/AdvReac Type Severity Reaction Status Date / Time No Known Allergies Allergy Verified 05/10/20 10:06 Current Medications Acetaminophen (Acetaminophen 325 Mg Tab) 650 mg PO Q4H PRN PRN Reason: Headache/Fever/Mild Pain (1-3) Last Admin: 08/26/20 06:08 Dose: 650 mg Documented by: Albuterol/Ipratropium (Ipratropium/Albuterol Sulfate 3 Ml Neb) 3 ml NEB [id number] [facility] Last Admin: 08/26/20 08:11 Dose: 3 ml Documented by: Amiodarone HCl (Amiodarone 200 Mg Tab) 200 mg PO TID [facility] Last Admin: 08/26/20 09:03 Dose: 200 mg Documented by: Apixaban (Apixaban 2.5 Mg Tab) 2.5 mg PO BID [facility] Last Admin: 08/26/20 09:03 Dose: 2.5 mg Documented by: Dextrose/Water (Dextrose 50% Abboject 50 Ml Syringe) 25 gm SLOW IVP PRN PRN PRN Reason: Hypoglycemia Last Admin: 08/24/20 06:08 Dose: 25 gm Documented by: Glucagon (Glucagon 1 Mg/Ml Vial) 1 mg IM PRN PRN PRN Reason: Hypoglycemia Dextrose/Water (D5w) 1,000 mls @ 0 mls/hr IV .Q0M PRN PRN Reason: Hypoglycemia Insulin Glargine 25 units/ (Miscellaneous Medication) 0.25 mls @ 0 mls/hr SC BID [facility] Last Admin: 08/26/20 09:04 Dose: 0.25 mls Documented by: Azithromycin 500 mg/ Sodium (Chloride) 250 mls @ 250 mls/hr IVPB 1100 [facility] Last Admin: 08/25/20 11:25 Dose: 250 mls Documented by: Ceftriaxone Sodium 1 gm/ (Sodium Chloride) 100 mls @ 200 mls/hr IVPB 1400 [facility] Last Admin: 08/25/20 15:11 Dose: 100 mls Documented by: Dobutamine HCl/Dextrose 500 mg (/ Device) 250 mls @ 9.179 mls/hr IVPB INF [facility]; Protocol Last Admin: 08/25/20 11:26 Dose: 250 mls Documented by: Insulin Human Lispro (Humalog 300 Units/3 Ml Vial) 0 units SC .MODERATE SLIDING SC PRN PRN Reason: Moderate Correctional Scale Last Admin: 08/26/20 06:09 Dose: 2 unit Documented by: Insulin Human Lispro (Humalog 300 Units/3 Ml Vial) 0 units SC .BEDTIME SLIDING SC PRN PRN Reason: Bedtime Correctional Scale Melatonin (Melatonin 3 Mg Tab) 6 mg PO HS PRN PRN Reason: Insomnia Last Admin: 08/23/20 02:11 Dose: 6 mg Documented by: Metoprolol Succinate (Metoprolol Succinate Xl 25 Mg Tab) 12.5 mg PO Q12HR [facility] Last Admin: 08/26/20 09:03 Dose: 12.5 mg Documented by: Miscellaneous Medication (Icosapent Ethyl 1 Gm Capsule) 1 gm PO BID-WM [facility] Last Admin: 08/26/20 09:04 Dose: 1 gm Documented by: Mometasone Furoate (Mometasone 100 Mcg/Puff (1 Inhaler)) 100 mcg INH BID-RT [facility] Last Admin: 08/26/20 08:12 Dose: 1 puff Documented by: Rosuvastatin Calcium (Rosuvastatin 20 Mg Tab) 40 mg PO MoThFr@2100 [facility] Last Admin: 08/24/20 22:05 Dose: 40 mg Documented by: Vital Signs & Weight: Vital Signs Temp Pulse Resp BP BP Pulse Ox 08/26/20 08:11 89 16 99 08/26/20 07:15 99 08/26/20 07:12 97.3 F L 80 16 100/64 96 08/26/20 04:00 97.1 F L 80 14 108/64 98 08/26/20 00:24 80 16 100 Weight 130 lb 4.8 oz I/O: I/O 08/25/20 08/26/20 08/27/20 06:59 06:59 06:59 Intake Total 1300 1184 Output Total 900 1510 Balance 400 -326 - Quality Measures Condition: Atrial Fibrillation/Flutter (hx or current) CV meds: Eliquis: Yes - Physical Exam General: alert & oriented x3, appears well, no apparent distress HEENT: mucus membranes moist, normocephaly, EOMI Neck: supple neck, midline trachea, no JVD/HJR Cardiology: regular rate, irregularly irregular Lungs: decreased breath sounds Neurology: cranial nerve 2-12 intact, grossly intact, coordination normal Abdomen: unremarkable, active bowel sounds, soft, no masses Extremities: dry, strong pulses, warm - Labs Result Diagrams: 08/26/20 04:20 08/26/20 04:20 - EKG Interpretation EKG Method: Telemetry EKG shows: Atrial fibrillation - Device Device: biventricular Device Result: [email or web address] - Assessment/Plan Assessment/Plan: 1. Atrial fibrillation with occasional rapid ventricular response, persisting si nce early July. 2. 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 3. Pneumonia, being treated with antibiotics. 4. Hypokalemia. 5. Hypomagnesemia. 6. Acute on chronic kidney disease. 7. Premature ventricular contractions frequent. 8. Nonischemic cardiomyopathy with acute on chronic congestive heart failure. Remains in rate controlled atrial fibrillation with heart rates in the 80s with ongoing amiodarone loading taper, currently 200 mg t.i.d. His pneumonia is resolving with continued antibiotics and his WBC is now trending down. his electrolytes have been replaced, now within acceptable ranges. continue amiodarone loading and consider repeat attempted cardioversion, possibly as an outpatient in 1-2 weeks time. continue OAC on Eliquis. Potential transfer fro LVAD with advanced HF.
--- NOTE | 2020-08-26 10:59 | RAD ---
PORTABLE CHEST: Date: 08/26/2020 HISTORY: CHF and pneumonia follow-up. COMPARISON: 08/20/2020. FINDINGS: There has been improvement in the appearance of the chest. Infiltrate in the right lower lung on the prior study shows resolution. There is less pronounced vascular engorgement today. Heart size upper n ormal and stable. AICD leads unchanged. No significant effusion. IMPRESSION: Overall improvement in the appearance of the chest. POS: AGW
[2020-08-26] MEDS: Azithromycin 500 MG in Sodium Chloride 0.9% 250 ML 250 ML IVPB SCH (11:31)
--- NOTE | 2020-08-26 15:59 | PDOC.HOSPP ---
- Subjective Encounter Date: 08/26/20 - Objective Vital Signs & Weight: Vital Signs (12 hours) Temp Pulse Resp BP BP Pulse Ox 08/26/20 13:52 76 14 100 08/26/20 11:10 98.3 F 80 18 113/60 98 08/26/20 08:11 89 16 99 08/26/20 07:15 99 08/26/20 07:12 97.3 F L 80 16 100/64 96 08/26/20 04:00 97.1 F L 80 14 108/64 98 Weight Weight 130 lb 4.8 oz I&O: 08/25/20 08/26/20 08/27/20 06:59 06:59 06:59 Intake Total 1300 1184 Output Total 900 1510 Balance 400 -326 Result Diagrams: 08/26/20 04:20 08/26/20 04:20 Additional Labs: Accuchecks 08/26/20 08/26/20 08/25/20 11:13 05:39 20:17 POC Glucose 106 H 170 H 137 H 08/25/20 16:38 POC Glucose 124 H Hospitalist ROS - Medication Medications: Active Medications Generic Name Dose Route Start Last Admin Trade Name Freq PRN Reason Stop Dose Admin Acetaminophen 650 mg 08/20/20 18:33 08/26/20 06:08 Acetaminophen 325 Mg Tab PO 650 mg Q4H PRN Administration Headache/Fever/Mild Pain (1-3) Albuterol/Ipratropium 3 ml 08/21/20 01:00 08/26/20 13:52 Ipratropium/Albuterol Sulfate 3 Ml Neb NEB 3 ml [id number] DEV Administration Amiodarone HCl 200 mg 08/22/20 21:00 08/26/20 09:03 Amiodarone 200 Mg Tab PO 200 mg TID DEV Administration Apixaban 2.5 mg 08/21/20 21:00 08/26/20 09:03 Apixaban 2.5 Mg Tab PO 2.5 mg BID DEV Administration Dextrose/Water 25 gm 08/20/20 18:34 08/24/20 06:08 Dextrose 50% Abboject 50 Ml Syringe SLOW IVP 25 gm PRN PRN Administration Hypoglycemia Insulin Glargine 25 units/ 0.25 mls @ 0 mls/hr 08/20/20 21:00 08/26/20 09:04 Miscellaneous Medication SC 0.25 mls BID DEV Administration Azithromycin 500 mg/ Sodium 250 mls @ 250 mls/hr 08/21/20 11:00 08/26/20 11:31 Chloride IVPB 250 mls 1100 DEV Administration Ceftriaxone Sodium 1 gm/ 100 mls @ 200 mls/hr 08/21/20 14:00 08/25/20 15:11 Sodium Chloride IVPB 100 mls 1400 DEV Administration Dobutamine HCl/Dextrose 500 mg 250 mls @ 9.179 mls/hr 08/25/20 11:00 08/25/20 11:26 / Device IVPB 250 mls INF DEV Administration Protocol 5 MCG/KG/MIN Insulin Human Lispro 0 units 08/20/20 18:34 08/26/20 06:09 Humalog 300 Units/3 Ml Vial SC 2 unit .MODERATE SLIDING SC PRN Administration Moderate Correctional Scale Melatonin 6 mg 08/20/20 22:32 08/23/20 02:11 Melatonin 3 Mg Tab PO 6 mg HS PRN Administration Insomnia Metoprolol Succinate 12.5 mg 08/25/20 09:00 08/26/20 09:03 Metoprolol Succinate Xl 25 Mg Tab PO 12.5 mg Q12HR DEV Administration Miscellaneous Medication 1 gm 08/21/20 08:00 08/26/20 09:04 Icosapent Ethyl 1 Gm Capsule PO 1 gm BID-WM DEV Administration Mometasone Furoate 100 mcg 08/21/20 06:30 08/26/20 08:12 Mometasone 100 Mcg/Puff (1 Inhaler) INH 1 puff BID-RT DEV Administration Rosuvastatin Calcium 40 mg 08/20/20 21:00 08/24/20 22:05 Rosuvastatin 20 Mg Tab PO 40 mg MoThFr@2100 DEV Administration - Exam General Appearance: awake alert ENT: normocephalic atraumatic Neck: supple, no JVD Heart: RRR Respiratory: normal chest expansion, no tachypnea Gastrointestinal: soft Neurological: cranial nerve grossly intact, no weakness Hosp A/P (1) Acute respiratory failure with hypoxia Code(s): J96.01 - ACUTE RESPIRATORY FAILURE WITH HYPOXIA Status: Acute (2) Atrial fibrillation with RVR Code(s): I48.91 - UNSPECIFIED ATRIAL FIBRILLATION Status: Acute (3) Right middle lobe pneumonia Code(s): J18.9 - PNEUMONIA, UNSPECIFIED ORGANISM Status: Acute (4) COPD exacerbation Code(s): J44.1 - CHRONIC OBSTRUCTIVE PULMONARY DISEASE W (ACUTE) EXACERBATION Status: Acute (5) Cardiomyopathy Code(s): I42.9 - CARDIOMYOPATHY, UNSPECIFIED Status: Acute (6) HTN (hypertension) Code(s): I10 - ESSENTIAL (PRIMARY) HYPERTENSION Status: Chronic Qualifiers: Hypertension type: essential hypertension Qualified Code(s): I10 - Essential (primary) hypertension (7) Diabetes Code(s): E11.9 - TYPE 2 DIABETES MELLITUS WITHOUT COMPLICATIONS Status: Chronic Qualifiers: Diabetes mellitus type: type 2 Diabetes mellitus fdc insulin use: with fdc use Diabetes mellitus complication status: with kidney complications Diabetes mellitus complication detail: with chronic kidney disease Chronic kidney disease stage: stage 3 (moderate) - Plan Hypoxia due to right middle and lower lobe pneumonia in the setting of COPD. Corticosteroids has been tapered off. Leukocytosis is likely due to corticosteroids. Chest x-ray showed improvement of the infiltrates. Antibiotics can be discontinued tomorrow Atrial fibrillation with controlled ventricular response. Continue amiodarone and Eliquis. Status post cardioversion that was only temporary successful in maintaining sinus rhythm. Cardiology started dobutamine due to renal failure with low EF. [facility] transfer to [place] for LVAD consideration.
[2020-08-26] MEDS: cefTRIAXone\\ROCEPHIN 1 GM in Sodium Chloride 0.9% 100 ML IVPB SCH (16:47)
[2020-08-26] MEDS ORDERED: Cosyntropin 250 MCG VIAL SLOW IVP SCH (20:00)
[2020-08-27] MEDS: DOBUTamine 500 mg/250 ml 500 MG in Premix Bag 1 BAG IVPB SCH (00:30)
[2020-08-27 03:36] LABS: #Lymphocytes 0.8 thou/uL (1.20-3.40); #Neutrophils 13.5 thou/uL (1.40-6.50); %Basophils 0.1 % (0.0-1.0); %Lymphocytes 5.1 % (21.0-51.0); %Monocytes 6.6 % (0.0-10.0); %Neutrophils 88.2 % (42.0-75.0); Hemoglobin 12.6 g/dL (14.0-18.0); Mean Corpuscular HGB CONC 32.2 g/dL (32.0-36.0); Mean Corpuscular Hemoglobin 28.3 pg (27.0-31.0); Mean Corpuscular Volume 87.9 fL (78.0-98.0); Mean Platelet Volume 11.8 fL (7.4-10.4); Platelet Count 93 thou/uL (130-400); RBC Distribution Width 16.5 % (11.5-14.5); Red Blood Cell (RBC) Count 4.46 mill/uL (4.70-6.10); White Blood Cell (WBC) Count 15.3 thou/uL (4.8-10.8)
[2020-08-27 03:51] LABS: Anion Gap 15 mmol/L (10-20); BUN (Urea Nitrogen) 50 mg/dL (8.4-25.7); Calc. Creatinine Clearance 27 mL/min (70-130); Calcium 8.5 mg/dL (7.8-10.44); Carbon Dioxide 17 mmol/L (23-31); Chloride 101 mmol/L (98-107); Glucose 97 mg/dL (83-110); Magnesium 2.3 mg/dL (1.6-2.6); Potassium 3.6 mmol/L (3.5-5.1); Sodium 129 mmol/L (136-145)
[2020-08-27] MEDS: Mometasone 100 MCG/PUFF (1 INHALER) INH SCH ×2 (07:24→19:10)
[2020-08-27] MEDS ORDERED: Furosemide 40 MG/4 ML VIAL SLOW IVP SCH (09:30)
[2020-08-27] MEDS ORDERED: Potassium Chloride 20 MEQ TAB PO SCH (09:30)
[2020-08-27] MEDS ORDERED: Potassium Chloride 20 MEQ in Premix Bag 1 BAG IVPB SCH (09:30)
[2020-08-27] MEDS: Apixaban 2.5 MG TAB PO SCH ×2 (09:39→21:25)
[2020-08-27] MEDS: Icosapent Ethyl 1 GM CAPSULE PO SCH ×2 (09:39→18:04)
[2020-08-27] MEDS: Amiodarone 200 MG TAB PO SCH ×3 (09:39→21:25)
--- NOTE | 2020-08-27 10:41 | PRG ---
DATE OF SERVICE: 08/27/2020 SERVICE: Advanced Heart Failure/Transplant Cardiology Consult Service. SUBJECTIVE: Mr. Almonte had a good day. He has increased activity level. He is able to sit up in bed, take a few steps to the bathroom and ambulate short distances around his room. This is significant improvement from home. However, he is still too weak to go beyond that. He was able to sleep overnight without having PND. He feels good with that. He still has some residual low-level shortness of breath, it is better than what it was on admission. He did improve significantly with dobutamine. REVIEW OF SYSTEMS: GENERAL: There are no fever, chills, or productive cough. HEENT: There are no changes in vision, hearing, or swallowing. PULMONARY: Please see HPI. CARDIAC: There is no chest pains or syncope. GI: There is no nausea or vomiting. : He seemed to be somewhat incontinent at times, this does not clear. However, there is no request for a Fernando catheter. MUSCULOSKELETAL: There is no complaint of muscle pain or joint pains. INTEGUMENT: There are no new skin breakdown. NEUROLOGIC: There are no focal deficits or weaknesses. CURRENT MEDICATIONS: Consist of: 1. Albuterol and ipratropium nebs q.6 hours. 2. Amiodarone 200 mg three times a day. 3. Apixaban 2.5 mg daily. 4. Azithromycin 500 mg daily. 5. Ceftriaxone 1 g daily. 6. Dobutamine currently at 5 mcg/kg per minute. 7. Glargine insulin at 25 units daily. 8. Toprol-XL 12.5 mg p.o. q.12 hours. 9. Mometasone at 100 mcg b.i.d. 10. Rosuvastatin 40 mg p.o. at bedtime. His telemetry was reviewed. It showed paced rhythm at 80 beats per minute. However, his underlying rhythm is likely to be atrial fibrillation. There are few breakthrough. Other than that, there are no concerning arrhythmias. PHYSICAL EXAMINATION: VITAL SIGNS: Latest vitals are paced heart rate at 80 and blood pressure 121/65. GENERAL: He is alert, conversational, reclining comfortably in bed. HEENT: Show EOMI. Oropharynx benign. NECK: JVP is between 9 to 10 cm with positive hepatojugular reflux. PULMONARY: There are slight right basilar crackles. CARDIAC: Combination of regular and irregular rhythms. Normal S1, S2. There is 2/6 holosystolic murmur at the apex with radiation to the left axilla. There is also 2/6 holosystolic murmur at the left upper sternal border. There is 1/6 diastolic murmur at the right sternal border. So consequently, he has combination of mitral regurgitation, tricuspid regurgitation, and also aortic regurgitation. ABDOMEN: Soft, nontender. Positive bowel sounds. EXTREMITIES: Lower extremities without edema, however, is cool to touch. So consequently, he still has low cardiac output. LABORATORY VALUES: Today are sodium 129, potassium 3.6, BUN is 50, creatinine has decreased to 2.03, so it is a slight improvement. Magnesium of 2.3. His BNP is at 2759, so this is essentially the same. ASSESSMENT: 74-year-old gentleman resides in [place] [employer] stage D and [place] Heart [employer] class 4 heart failure with reduced ejection fraction due to nonischemic cardiomyopathy. He has both systolic and diastolic dysfunctions. Currently, he is requiring dobutamine 5 mcg/kg per minute that may not be quite sufficient. He is slightly volume overloaded as seen by crackles in his lungs and dropping in his sodium. It is good that his kidney is still showing a better improvement. So, he has recoverable cardiac renal syndrome. Currently, we are waiting on a transfer from [facility] in [place], [place] to [facility] in [place], [place] for urgent left ventricular assist device evaluation, possible implantation. In the meantime, we will need to increase dobutamine as needed to keep his organs perfused and salvage his kidneys. We will also need to continue with amiodarone to keep his atrial fibrillation under check. He is BI-V paced right now with a VVI mode of 80 beats per minute, this seemed to be sufficient. He also need a bit of diuresis today. RECOMMENDATIONS: Please see the following for my recommendations: 1. Please give KCl 20 mEq IV one dose now. 2. Please give KCl 40 mEq by mouth one dose now. 3. Give Lasix 40 mg IV one dose at 1 hour after KCl IV has been given. 4. Please increase dobutamine to 6 mcg/kg per minute. 5. We will continue to work with the transfer center to ensure this patient is transferred to [facility]. The patient has been accepted at [facility] Advanced Heart Failure team by Dr. Magdalena Razo. 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 Stella Torres. Since there were family members and also good living situation in [place], that is the reason why the family chose to go to [place]. It has been a pleasure taking care of Mr. Almonte. If you have any questions, please give me a call. Visitation time is about 40 minutes. Job ID: [id number] MTDD
[2020-08-27] MEDS: Insulin Glargine 25 UNITS in Pre-Filled Syringe 1 EACH SC SCH ×2 (11:44→21:25)
[2020-08-27] MEDS: Azithromycin 500 MG in Sodium Chloride 0.9% 250 ML 250 ML IVPB SCH (12:00)
--- NOTE | 2020-08-27 15:14 | PDOC.HOSPP ---
- Subjective Encounter Date: 08/27/20 Subjective: Urine retention was reported by the nursing staff. - Objective Vital Signs & Weight: Vital Signs (12 hours) Temp Pulse Resp BP Pulse Ox 08/27/20 12:35 73 16 98 08/27/20 11:53 97.2 F L 80 16 120/64 100 08/27/20 08:00 97.7 F 80 18 121/56 L 96 08/27/20 07:26 99 08/27/20 07:24 80 16 99 08/27/20 04:00 98.0 F 80 14 113/65 100 Weight Weight 130 lb 4.8 oz I&O: 08/26/20 08/27/20 08/28/20 06:59 06:59 06:59 Intake Total 1184 1620 Output Total 1518 0604 1300 Balance -326 -1030 -1300 Result Diagrams: 08/28/20 04:44 08/28/20 04:44 Additional Labs: Accuchecks 08/27/20 08/27/20 08/26/20 11:04 05:19 21:54 POC Glucose 112 H 66 L 113 H 08/26/20 16:28 POC Glucose 63 L Hospitalist ROS - Medication Medications: Active Medications Generic Name Dose Route Start Last Admin Trade Name Freq PRN Reason Stop Dose Admin Acetaminophen 650 mg 08/20/20 18:33 08/26/20 20:13 Acetaminophen 325 Mg Tab PO 650 mg Q4H PRN Administration Headache/Fever/Mild Pain (1-3) Albuterol/Ipratropium 3 ml 08/21/20 01:00 08/27/20 12:35 Ipratropium/Albuterol Sulfate 3 Ml Neb NEB 3 ml [id number] DEV Administration Amiodarone HCl 200 mg 08/22/20 21:00 08/27/20 09:39 Amiodarone 200 Mg Tab PO 200 mg TID DEV Administration Apixaban 2.5 mg 08/21/20 21:00 08/27/20 09:39 Apixaban 2.5 Mg Tab PO 2.5 mg BID DEV Administration Cosyntropin 250 mcg 08/26/20 20:00 08/27/20 01:11 Cosyntropin 250 Mcg Vial SLOW IVP 250 mcg WILLCALL DEV Administration Dextrose/Water 25 gm 08/20/20 18:34 08/24/20 06:08 Dextrose 50% Abboject 50 Ml Syringe SLOW IVP 25 gm PRN PRN Administration Hypoglycemia Insulin Glargine 25 units/ 0.25 mls @ 0 mls/hr 08/20/20 21:00 08/27/20 11:44 Miscellaneous Medication SC 0.25 mls BID DEV Administration Insulin Human Lispro 0 units 08/20/20 18:34 08/26/20 06:09 Humalog 300 Units/3 Ml Vial SC 2 unit .MODERATE SLIDING SC PRN Administration Moderate Correctional Scale Melatonin 6 mg 08/20/20 22:32 08/23/20 02:11 Melatonin 3 Mg Tab PO 6 mg HS PRN Administration Insomnia Metoprolol Succinate 12.5 mg 08/25/20 09:00 08/27/20 09:39 Metoprolol Succinate Xl 25 Mg Tab PO 12.5 mg Q12HR DEV Administration Miscellaneous Medication 1 gm 08/21/20 08:00 08/27/20 09:39 Icosapent Ethyl 1 Gm Capsule PO 1 gm BID-WM DEV Administration Mometasone Furoate 100 mcg 08/21/20 06:30 08/27/20 07:24 Mometasone 100 Mcg/Puff (1 Inhaler) INH 1 puff BID-RT DEV Administration Rosuvastatin Calcium 40 mg 08/20/20 21:00 08/24/20 22:05 Rosuvastatin 20 Mg Tab PO 40 mg MoThFr@2100 DEV Administration Sodium Chloride 10 ml 08/27/20 09:30 08/27/20 09:40 Flush - Normal Saline 10 Ml Syringe IVF 10 ml PRN PRN Administration Saline Flush - Exam General Appearance: awake alert ENT: normocephalic atraumatic Neck: supple, no JVD Heart: RRR Respiratory: normal chest expansion, no tachypnea Extremities: no cyanosis, no clubbing Hosp A/P (1) Acute respiratory failure with hypoxia Code(s): J96.01 - ACUTE RESPIRATORY FAILURE WITH HYPOXIA Status: Acute (2) Atrial fibrillation with RVR Code(s): I48.91 - UNSPECIFIED ATRIAL FIBRILLATION Status: Acute (3) Right middle lobe pneumonia Code(s): J18.9 - PNEUMONIA, UNSPECIFIED ORGANISM Status: Acute (4) COPD exacerbation Code(s): J44.1 - CHRONIC OBSTRUCTIVE PULMONARY DISEASE W (ACUTE) EXACERBATION Status: Acute (5) Cardiomyopathy Code(s): I42.9 - CARDIOMYOPATHY, UNSPECIFIED Status: Acute (6) HTN (hypertension) Code(s): I10 - ESSENTIAL (PRIMARY) HYPERTENSION Status: Chronic Qualifiers: Hypertension type: essential hypertension Qualified Code(s): I10 - Essential (primary) hypertension (7) Diabetes Code(s): E11.9 - TYPE 2 DIABETES MELLITUS WITHOUT COMPLICATIONS Status: Chronic Qualifiers: Diabetes mellitus type: type 2 Diabetes mellitus buttermaker helper insulin use: with halfway use Diabetes mellitus complication status: with kidney complications Diabetes mellitus complication detail: with chronic kidney disease Chronic kidney disease stage: stage 3 (moderate) - Plan Hypoxia due to right middle and lower lobe pneumonia in the setting of COPD. Corticosteroids has been tapered off. Leukocytosis is likely due to corticosteroids. Chest x-ray showed improvement of the infiltrates. Antibiotics discontinued. Atrial fibrillation with controlled ventricular response. Continue amiodarone and Eliquis. Status post cardioversion that was only temporary successful in maintaining sinus rhythm. Cardiology started dobutamine due to renal failure with low EF. Pending transfer to [place] for LVAD consideration. Fernando catheter has been inserted for urine retention.
[2020-08-27] MEDS: cefTRIAXone\\ROCEPHIN 1 GM in Sodium Chloride 0.9% 100 ML IVPB SCH (15:51)
--- NOTE | 2020-08-27 17:04 | PDOC.EP ---
- Subjective Date: 08/27/20 Time: 08:00 Interval History: No events overnight. Feels fair with no significant improvement or decline 8 point ROS negative - Objective Allergies/Adverse Reactions: Allergies Allergy/AdvReac Type Severity Reaction Status Date / Time No Known Allergies Allergy Verified 05/10/20 10:06 Current Medications Acetaminophen (Acetaminophen 325 Mg Tab) 650 mg PO Q4H PRN PRN Reason: Headache/Fever/Mild Pain (1-3) Last Admin: 08/26/20 20:13 Dose: 650 mg Documented by: Albuterol/Ipratropium (Ipratropium/Albuterol Sulfate 3 Ml Neb) 3 ml NEB [id number] Last Admin: 08/27/20 12:35 Dose: 3 ml Documented by: Amiodarone HCl (Amiodarone 200 Mg Tab) 200 mg PO TID [facility] Last Admin: 08/27/20 15:41 Dose: 200 mg Documented by: Apixaban (Apixaban 2.5 Mg Tab) 2.5 mg PO BID [facility] Last Admin: 08/27/20 09:39 Dose: 2.5 mg Documented by: Cosyntropin (Cosyntropin 250 Mcg Vial) 250 mcg SLOW IVP WILLCALL DEV Last Admin: 08/27/20 01:11 Dose: 250 mcg Documented by: Dextrose/Water (Dextrose 50% Abboject 50 Ml Syringe) 25 gm SLOW IVP PRN PRN PRN Reason: Hypoglycemia Last Admin: 08/24/20 06:08 Dose: 25 gm Documented by: Glucagon (Glucagon 1 Mg/Ml Vial) 1 mg IM PRN PRN PRN Reason: Hypoglycemia Dextrose/Water (D5w) 1,000 mls @ 0 mls/hr IV .Q0M PRN PRN Reason: Hypoglycemia Insulin Glargine 25 units/ (Miscellaneous Medication) 0.25 mls @ 0 mls/hr SC BID DEV Last Admin: 08/27/20 11:44 Dose: 0.25 mls Documented by: Dobutamine HCl/Dextrose 500 mg (/ Device) 250 mls @ 11.014 mls/hr IVPB INF DEV; Protocol Insulin Human Lispro (Humalog 300 Units/3 Ml Vial) 0 units SC .MODERATE SLIDING SC PRN PRN Reason: Moderate Correctional Scale Last Admin: 08/26/20 06:09 Dose: 2 unit Documented by: Insulin Human Lispro (Humalog 300 Units/3 Ml Vial) 0 units SC .BEDTIME SLIDING SC PRN PRN Reason: Bedtime Correctional Scale Melatonin (Melatonin 3 Mg Tab) 6 mg PO HS PRN PRN Reason: Insomnia Last Admin: 08/23/20 02:11 Dose: 6 mg Documented by: Metoprolol Succinate (Metoprolol Succinate Xl 25 Mg Tab) 12.5 mg PO Q12HR [facility] Last Admin: 08/27/20 09:39 Dose: 12.5 mg Documented by: Miscellaneous Medication (Icosapent Ethyl 1 Gm Capsule) 1 gm PO BID-WM [facility] Last Admin: 08/27/20 09:39 Dose: 1 gm Documented by: Mometasone Furoate (Mometasone 100 Mcg/Puff (1 Inhaler)) 100 mcg INH BID-RT [facility] Last Admin: 08/27/20 07:24 Dose: 1 puff Documented by: Rosuvastatin Calcium (Rosuvastatin 20 Mg Tab) 40 mg PO MoThFr@2100 [facility] Last Admin: 08/24/20 22:05 Dose: 40 mg Documented by: Sodium Chloride (Flush - Normal Saline 10 Ml Syringe) 10 ml IVF Q12HR DEV Sodium Chloride (Flush - Normal Saline 10 Ml Syringe) 10 ml IVF PRN PRN PRN Reason: Saline Flush Last Admin: 08/27/20 09:40 Dose: 10 ml Documented by: Vital Signs & Weight: Vital Signs Temp Pulse Resp BP Pulse Ox 08/27/20 12:35 73 16 98 08/27/20 11:53 97.2 F L 80 16 120/64 100 08/27/20 08:00 97.7 F 80 18 121/56 L 96 08/27/20 07:26 99 08/27/20 07:24 80 16 99 Weight 130 lb 4.8 oz I/O: I/O 08/26/20 08/27/20 08/28/20 06:59 06:59 06:59 Intake Total 1184 1620 Output Total 1518 7723 4002 Balance -782 -3086 -5460 - Quality Measures Condition: Atrial Fibrillation/Flutter (hx or current) CV meds: Eliquis: Yes - Physical Exam General: alert & oriented x3, no apparent distress, cachectic, speech clear, affect appropriate. negative: appears well HEENT: mucus membranes moist, normocephaly, EOMI Neck: supple neck, midline trachea, no lymphadenopathy Cardiology: regular rate, irregularly irregular Lungs: clear to auscultation, normal breath sounds, no wheeze, rales, rhonchi Neurology: cranial nerve 2-12 intact, grossly intact, no lateralizing findings - Labs Result Diagrams: 08/27/20 03:23 08/27/20 03:23 - EKG Interpretation EKG Method: Telemetry EKG shows: Atrial fibrillation (PVCs) - Assessment/Plan Assessment/Plan: 1. Atrial fibrillation with occasional rapid ventricular response, persisting since early July. 2. 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 3. Pneumonia, being treated with antibiotics. 4. Hypokalemia. 5. Hypomagnesemia. 6. Acute on chronic kidney disease. 7. Premature ventricular contractions frequent. 8. Nonischemic cardiomyopathy with acute on chronic congestive heart failure. Rate controlled AF. lo2- mod PVC burden should improved with continued amiodarone loading. Rhythm stable. Stay on OAC.
[2020-08-27 17:19] LABS: Anion Gap 11 mmol/L (10-20); BUN (Urea Nitrogen) 44 mg/dL (8.4-25.7); Calc. Creatinine Clearance 25 mL/min (70-130); Calcium 8.7 mg/dL (7.8-10.44); Carbon Dioxide 27 mmol/L (23-31); Chloride 101 mmol/L (98-107); Glucose 141 mg/dL (83-110); Magnesium 2.3 mg/dL (1.6-2.6); Potassium 4.4 mmol/L (3.5-5.1); Sodium 135 mmol/L (136-145)
[2020-08-27] MEDS: Rosuvastatin 20 MG TAB PO SCH (21:25)
[2020-08-28] MEDS: DOBUTamine 500 mg/250 ml 500 MG in Premix Bag 1 BAG IVPB SCH (00:08)
[2020-08-28] MEDS: Dextrose 50% Abboject 50 ML SYRINGE SLOW IVP PRN (02:14)
[2020-08-28 05:14] LABS: #Lymphocytes 0.5 thou/uL (1.20-3.40); #Monocytes 0.8 thou/uL (0.11-0.59); #Neutrophils 12.2 thou/uL (1.40-6.50); %Eosinophils 0.1 % (0.0-10.0); %Lymphocytes 3.8 % (21.0-51.0); %Monocytes 6.1 % (0.0-10.0); %Neutrophils 90.1 % (42.0-75.0); Hemoglobin 13.1 g/dL (14.0-18.0); Mean Corpuscular HGB CONC 32.4 g/dL (32.0-36.0); Mean Corpuscular Hemoglobin 28.6 pg (27.0-31.0); Mean Corpuscular Volume 88.4 fL (78.0-98.0); Mean Platelet Volume 11.6 fL (7.4-10.4); Platelet Count 96 thou/uL (130-400); RBC Distribution Width 16.5 % (11.5-14.5); Red Blood Cell (RBC) Count 4.57 mill/uL (4.70-6.10); White Blood Cell (WBC) Count 13.5 thou/uL (4.8-10.8)
[2020-08-28 05:27] LABS: Anion Gap 10 mmol/L (10-20); BUN (Urea Nitrogen) 41 mg/dL (8.4-25.7); Calc. Creatinine Clearance 27 mL/min (70-130); Calcium 8.6 mg/dL (7.8-10.44); Carbon Dioxide 29 mmol/L (23-31); Chloride 101 mmol/L (98-107); Glucose 97 mg/dL (83-110); Magnesium 2.2 mg/dL (1.6-2.6); Potassium 3.9 mmol/L (3.5-5.1); Sodium 136 mmol/L (136-145)
[2020-08-28] MEDS: Mometasone 100 MCG/PUFF (1 INHALER) INH SCH ×2 (06:51→19:21)
[2020-08-28] MEDS: Amiodarone 200 MG TAB PO SCH ×3 (08:18→22:22)
[2020-08-28] MEDS: Icosapent Ethyl 1 GM CAPSULE PO SCH ×2 (08:18→16:47)
[2020-08-28] MEDS: Apixaban 2.5 MG TAB PO SCH ×2 (08:19→22:22)
[2020-08-28] MEDS: Insulin Glargine 25 UNITS in Pre-Filled Syringe 1 EACH SC SCH ×2 (08:22→22:23)
[2020-08-28] MEDS ORDERED: Potassium Chloride 20 MEQ TAB PO SCH (09:30)
[2020-08-28] MEDS ORDERED: Bumetanide 1 MG TAB PO SCH (09:30)
--- NOTE | 2020-08-28 09:45 | PRG ---
DATE OF SERVICE: 08/28/2020 SUBJECTIVE: Mr. Almonte had an excellent day. He diuresed over 2.4 L yesterday with Lasix 40 mg IV just one dose. He was able to maintain the blood pressure without difficulty. He improved on dobutamine at 6 mcg/kg/minute. He said he is breathing easier. He also had a good night of sleep. However, due to his immobility, Fernando catheter was placed. He is able to walk a few steps from his bed to the bathroom and back. PT believes that he is still too weak to walk further. REVIEW OF SYSTEMS: GENERAL: There is no fever, chills, or productive cough. HEENT: There is no change in vision, hearing, or swallowing. PULMONARY: Please see HPI. CARDIAC: There is no chest pain or syncope. GI: There is no nausea, vomiting, or diarrhea. : Please see HPI. MUSCULOSKELETAL: There are no complaints of muscle pains or joint pains. INTEGUMENTARY: No new skin breakdown. NEUROLOGIC: There are no new focal deficits or weaknesses. CURRENT MEDICATIONS: Consist of: 1. Albuterol and ipratropium nebs q.6 hours. 2. Amiodarone 200 mg three times a day. 3. Apixaban 2.5 mg twice a day. 4. Dobutamine, currently at 6 mcg/kg/minute. 5. Glargine insulin at 25 units per day. 6. Toprol-XL 12.5 mg q.12 hours. 7. Mometasone 100 mcg twice a day. 8. Rosuvastatin 40 mg at bedtime. PHYSICAL EXAMINATION: Telemetry was reviewed. He is predominantly paced at 80 beats per minute, it is a Bi-V pacing; however. The ZINC PLATE GRAINER-D is programed to swithc to VVI mode at 80 bpm when atrial fibrillation occurs. Thus, he most likely has underlying atrial fibrillation. VITAL SIGNS: Heart rate 80 and blood pressure 104/71. GENERAL: He is alert and conversational, relaxing comfortably in bed, while reclining. HEENT: Show EOMI. Oropharynx with mildly dry oral mucosa. NECK: His JVP is only about 9 cm. PULMONARY: There is good air movement by bilaterally. It is much better today than yesterday. There is very slight crackle at the right base. CARDIAC: Combination of regular and irregular rhythm. Normal S1, S2. There is a 2/6 holosystolic murmur at the apex with radiation to the left axilla, and there is faint 1/6 diastolic murmur at right lower sternum. ABDOMEN: Soft, nontender. Positive bowel sounds. EXTREMITIES: Lower extremities are without muscle mass, but there is no edema and it is somewhat cool to touch. LABORATORY DATA: His latest laboratory values are sodium 136, potassium 3.9, chloride 101, bicarb of 29, BUN 41, and creatinine has decreased to more at 0.06. His BNP has decreased down to 2224, so he is still improving. ASSESSMENT: 74-year-old gentleman resides in [place] Heart Association stage D and also [place] Heart Association class 4 heart failure with reduced ejection fraction due to nonischemic cardiomyopathy. He has both systolic and diastolic dysfunctions. Currently, dobutamine at 6 mcg/kg/minute seem to provide sufficient cardiac output. He is having good systolic blood pressure and renal function is improving. Amiodarone at 200 mg 3 times daily is keeping his atrial fibrillation in check. Since the mode switches to 80 beats per minute in VVI, then we know he is still in atrial fibrillation. He has cardiorenal syndrome. With dobutamine augmentation, this is improving. He currently is euvolemic. He is currently also well compensated; however, he will need maintenance diuretics. At this point, his only hope for long-term good outcome is an urgent left ventricular assist device evaluation and possible implantation. Right now, we are waiting on a bed availability at [facility] in [facility]. RECOMMENDATIONS: Please see the following for my recommendations: 1. Please give potassium chloride 20 mEq daily, first dose now. 2. Switched to Bumex 1 mg orally daily, first dose now. 3. Please do followup chest x-ray to see the clearance of CHF. 4. Please to follow his white cell count and ensure that he does not have return pneumonia. We are waiting for a CCU bed to be opened up at [facility]. I will attempt to contact [facility] about the patient being stable on dobutamine 6 mcg/kg/minute, perhaps the telemetry bed will be good enough. It has been a pleasure taking care of Mr. Almonte. If you have any questions, please give me a call. His transfer to [facility] was also discussed with . The completely agree with this. The visitation time is 40 minutes. Job ID: [id number] MTDD
--- NOTE | 2020-08-28 10:33 | RAD ---
Chest AP view INDICATION: CHF and pneumonia COMPARISON: Prior exam dated August 20, 2020 FINDINGS: Lungs: There is improvement in the airspace disease involving both lower lobes. Mild residual parenc hymal opacity remains within the left midlung. Cardiac silhouette: Heart is megaly and AICD is stable Pulmonary vasculature: Normal Pleural spaces: No pleural effusion or pneumothorax is demonstrated. Upper abdomen: No abnormality seen. Osseous structures: No acute osseous abnormality. Additional findings: Right-sided PICC line is new from the prior exam. Tip of catheter projects in t he region of the cavoatrial junction. IMPRESSION: Improving bilateral pneumonia. Mild residual airspace disease is seen within the left midlung.
--- NOTE | 2020-08-28 15:52 | PDOC.EP ---
- Subjective Date: 08/28/20 Time: 11:00 - Review of Systems Constitutional: denies: chills, fever, malaise, sweats, weakness, other Respiratory: denies: cough, dry, hemoptysis, pleuritic pain, shortness of breath, SOB with excertion, sputum, wheezing, other Gastrointestinal: denies: abdominal pain, constipation, diarrhea, hematochezia, melena, nausea, vomitting, other Musculoskeletal: denies: unstable gait, falls, neck pain, shoulder pain, arm pain, hand pain, leg pain, foot pain, other - Objective Allergies/Adverse Reactions: Allergies Allergy/AdvReac Type Severity Reaction Status Date / Time No Known Allergies Allergy Verified 05/10/20 10:06 Current Medications Acetaminophen (Acetaminophen 325 Mg Tab) 650 mg PO Q4H PRN PRN Reason: Headache/Fever/Mild Pain (1-3) Last Admin: 08/26/20 20:13 Dose: 650 mg Documented by: Albuterol/Ipratropium (Ipratropium/Albuterol Sulfate 3 Ml Neb) 3 ml NEB [id number] [facility] Last Admin: 08/28/20 12:21 Dose: 3 ml Documented by: Amiodarone HCl (Amiodarone 200 Mg Tab) 200 mg PO TID [facility] Last Admin: 08/28/20 08:18 Dose: 200 mg Documented by: Apixaban (Apixaban 2.5 Mg Tab) 2.5 mg PO BID [facility] Last Admin: 08/28/20 08:19 Dose: 2.5 mg Documented by: Bumetanide (Bumetanide 1 Mg Tab) 1 mg PO 0730 [facility] Cosyntropin (Cosyntropin 250 Mcg Vial) 250 mcg SLOW IVP WILLCALL [facility] Last Admin: 08/27/20 01:11 Dose: 250 mcg Documented by: Dextrose/Water (Dextrose 50% Abboject 50 Ml Syringe) 25 gm SLOW IVP PRN PRN PRN Reason: Hypoglycemia Last Admin: 08/28/20 02:14 Dose: 25 gm Documented by: Glucagon (Glucagon 1 Mg/Ml Vial) 1 mg IM PRN PRN PRN Reason: Hypoglycemia Dextrose/Water (D5w) 1,000 mls @ 0 mls/hr IV .Q0M PRN PRN Reason: Hypoglycemia Insulin Glargine 25 units/ (Miscellaneous Medication) 0.25 mls @ 0 mls/hr SC BID [facility] Last Admin: 08/28/20 08:22 Dose: Not Given Documented by: Dobutamine HCl/Dextrose 500 mg (/ Device) 250 mls @ 11.014 mls/hr IVPB INF [facility]; Protocol Last Admin: 08/28/20 00:08 Dose: 250 mls Documented by: Insulin Human Lispro (Humalog 300 Units/3 Ml Vial) 0 units SC .MODERATE SLIDING SC PRN PRN Reason: Moderate Correctional Scale Last Admin: 08/26/20 06:09 Dose: 2 unit Documented by: Insulin Human Lispro (Humalog 300 Units/3 Ml Vial) 0 units SC .BEDTIME SLIDING SC PRN PRN Reason: Bedtime Correctional Scale Melatonin (Melatonin 3 Mg Tab) 6 mg PO HS PRN PRN Reason: Insomnia Last Admin: 08/23/20 02:11 Dose: 6 mg Documented by: Metoprolol Succinate (Metoprolol Succinate Xl 25 Mg Tab) 12.5 mg PO Q12HR [facility] Last Admin: 08/28/20 08:19 Dose: 12.5 mg Documented by: Miscellaneous Medication (Icosapent Ethyl 1 Gm Capsule) 1 gm PO BID-WM [facility] Last Admin: 08/28/20 08:18 Dose: 1 gm Documented by: Mometasone Furoate (Mometasone 100 Mcg/Puff (1 Inhaler)) 100 mcg INH BID-RT [facility] Last Admin: 08/28/20 06:51 Dose: 1 puff Documented by: Potassium Chloride (Potassium Chloride 20 Meq Tab) 20 meq PO DAILY [facility] Rosuvastatin Calcium (Rosuvastatin 20 Mg Tab) 40 mg PO MoThFr@2100 [facility] Last Admin: 08/27/20 21:25 Dose: 40 mg Documented by: Sodium Chloride (Flush - Normal Saline 10 Ml Syringe) 10 ml IVF Q12HR [facility] Last Admin: 08/28/20 08:20 Dose: 10 ml Documented by: Sodium Chloride (Flush - Normal Saline 10 Ml Syringe) 10 ml IVF PRN PRN PRN Reason: Saline Flush Last Admin: 08/27/20 09:40 Dose: 10 ml Documented by: Vital Signs & Weight: Vital Signs Temp Pulse Resp BP Pulse Ox 08/28/20 12:22 98 08/28/20 12:21 80 16 98 08/28/20 11:07 97.6 F 80 20 111/58 L 99 08/28/20 08:00 97.0 F L 80 26 H 104/71 100 08/28/20 06:53 99 08/28/20 06:52 80 16 99 08/28/20 04:50 97.6 F 80 19 117/65 100 Weight 128 lb 9.6 oz I/O: I/O 08/27/20 08/28/20 08/29/20 06:59 06:59 06:59 Intake Total 1620 1058 Output Total 2650 2850 Balance -6588 -4584 - Quality Measures Condition: Atrial Fibrillation/Flutter (hx or current) CV meds: Eliquis: Yes - Physical Exam General: appears well, no apparent distress HEENT: normocephaly Cardiology: regular rate and rhythm, no murmur Lungs: clear to auscultation Neurology: grossly intact Abdomen: unremarkable, soft, non-tender Extremities: warm Skin: device site stable w/o swelling - Labs Result Diagrams: 08/28/20 04:44 08/28/20 04:44 - EKG Interpretation EKG Method: Telemetry (AFib, V paced) EKG shows: Atrial fibrillation - Device Device: biventricular Device Result: [employer] - Assessment/Plan Assessment/Plan: 1. Atrial fibrillation with occasional rapid ventricular response, persisting since early July. 2. 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 3. Pneumonia, being treated with antibiotics. 4. Hypokalemia. 5. Hypomagnesemia. 6. Acute on chronic kidney disease. 7. Premature ventricular contractions frequent. 8. Nonischemic cardiomyopathy with acute on chronic congestive heart failure. Rate controlled AF. low- mod PVC burden should improved with continued amiodaro ne loading. Rhythm stable. Stay on OAC. 08/28/20. Stable pt with no new events. Awaiting transfer to [place]. EP would sign out. Call if questions.
--- NOTE | 2020-08-28 17:25 | PDOC.HOSPP ---
- Subjective Encounter Date: 08/28/20 Subjective: The patient was seen and examined. No significant change in his symptoms since yesterday. No evidence of respiratory distress. - Objective Vital Signs & Weight: Vital Signs (12 hours) Temp Pulse Resp BP Pulse Ox 08/28/20 16:00 97.3 F L 80 13 113/62 99 08/28/20 12:22 98 08/28/20 12:21 80 16 98 08/28/20 11:07 97.6 F 80 20 111/58 L 99 08/28/20 08:00 97.0 F L 80 26 H 104/71 100 08/28/20 06:53 99 08/28/20 06:52 80 16 99 Weight Weight 128 lb 9.6 oz I&O: 08/27/20 08/28/20 08/29/20 06:59 06:59 06:59 Intake Total 1620 1058 Output Total 2650 2850 Balance -8943 -8421 Result Diagrams: 08/28/20 04:44 08/28/20 04:44 Additional Labs: Accuchecks 08/28/20 08/28/20 08/28/20 16:54 16:20 10:53 POC Glucose 74 61 L 96 08/28/20 08/28/20 08/28/20 05:34 02:51 02:06 POC Glucose 91 167 H 52 L* 08/27/20 19:56 POC Glucose 144 H Hospitalist ROS - Medication Medications: Active Medications Generic Name Dose Route Start Last Admin Trade Name Freq PRN Reason Stop Dose Admin Acetaminophen 650 mg 08/20/20 18:33 08/26/20 20:13 Acetaminophen 325 Mg Tab PO 650 mg Q4H PRN Administration Headache/Fever/Mild Pain (1-3) Albuterol/Ipratropium 3 ml 08/21/20 01:00 08/28/20 12:21 Ipratropium/Albuterol Sulfate 3 Ml Neb NEB 3 ml [id number] Administration Amiodarone HCl 200 mg 08/22/20 21:00 08/28/20 16:47 Amiodarone 200 Mg Tab PO 200 mg TID DEV Administration Apixaban 2.5 mg 08/21/20 21:00 08/28/20 08:19 Apixaban 2.5 Mg Tab PO 2.5 mg BID DEV Administration Cosyntropin 250 mcg 12/02/20 20:00 08/27/20 01:11 Cosyntropin 250 Mcg Vial SLOW IVP 250 mcg WILLCALL DEV Administration Dextrose/Water 25 gm 08/20/20 18:34 08/28/20 02:14 Dextrose 50% Abboject 50 Ml Syringe SLOW IVP 25 gm PRN PRN Administration Hypoglycemia Insulin Glargine 25 units/ 0.25 mls @ 0 mls/hr 08/20/20 21:00 08/28/20 08:22 Miscellaneous Medication SC Not Given BID DEV Dobutamine HCl/Dextrose 500 mg 250 mls @ 11.014 mls/hr 08/27/20 09:30 08/28/20 00:08 / Device IVPB 250 mls INF DEV Administration Protocol 6 MCG/KG/MIN Insulin Human Lispro 0 units 08/20/20 18:34 08/26/20 06:09 Humalog 300 Units/3 Ml Vial SC 2 unit .MODERATE SLIDING SC PRN Administration Moderate Correctional Scale Melatonin 6 mg 08/20/20 22:32 08/23/20 02:11 Melatonin 3 Mg Tab PO 6 mg HS PRN Administration Insomnia Metoprolol Succinate 12.5 mg 08/25/20 09:00 08/28/20 08:19 Metoprolol Succinate Xl 25 Mg Tab PO 12.5 mg Q12HR DEV Administration Miscellaneous Medication 1 gm 08/21/20 08:00 08/28/20 16:47 Icosapent Ethyl 1 Gm Capsule PO 1 gm BID-WM DEV Administration Mometasone Furoate 100 mcg 08/21/20 06:30 08/28/20 06:51 Mometasone 100 Mcg/Puff (1 Inhaler) INH 1 puff BID-RT DEV Administration Rosuvastatin Calcium 40 mg 08/20/20 21:00 08/27/20 21:25 Rosuvastatin 20 Mg Tab PO 40 mg MoThFr@2100 DEV Administration Sodium Chloride 10 ml 08/27/20 21:00 08/28/20 08:20 Flush - Normal Saline 10 Ml Syringe IVF 10 ml Q12HR DEV Administration Sodium Chloride 10 ml 08/27/20 09:30 08/27/20 09:40 Flush - Normal Saline 10 Ml Syringe IVF 10 ml PRN PRN Administration Saline Flush - Exam ENT: normocephalic atraumatic Neck: supple, no JVD Heart: irregular Respiratory: normal chest expansion, no tachypnea Gastrointestinal: soft Extremities: no cyanosis, no clubbing Hosp A/P (1) Acute respiratory failure with hypoxia Code(s): J96.01 - ACUTE RESPIRATORY FAILURE WITH HYPOXIA Status: Acute (2) Atrial fibrillation with RVR Code(s): I48.91 - UNSPECIFIED ATRIAL FIBRILLATION Status: Acute (3) Right middle lobe pneumonia Code(s): J18.9 - PNEUMONIA, UNSPECIFIED ORGANISM Status: Acute (4) COPD exacerbation Code(s): J44.1 - CHRONIC OBSTRUCTIVE PULMONARY DISEASE W (ACUTE) EXACERBATION Status: Acute (5) Cardiomyopathy Code(s): I42.9 - CARDIOMYOPATHY, UNSPECIFIED Status: Acute (6) HTN (hypertension) Code(s): I10 - ESSENTIAL (PRIMARY) HYPERTENSION Status: Chronic Qualifiers: Hypertension type: essential hypertension Qualified Code(s): I10 - Essential (primary) hypertension (7) Diabetes Code(s): E11.9 - TYPE 2 DIABETES MELLITUS WITHOUT COMPLICATIONS Status: Chr onic Qualifiers: Diabetes mellitus type: type 2 Diabetes mellitus detention insulin use: with detention use Diabetes mellitus complication status: with kidney complications Diabetes mellitus complication detail: with chronic kidney disease Chronic kidney disease stage: stage 3 (moderate) - Plan Hypoxia due to right middle and lower lobe pneumonia in the setting of COPD improved. Corticosteroids has been tapered off. Leukocytosis trending down. Chest x-ray showed improvement of the infiltrates. Procalcitonin is negative. Antibiotics discontinued. Atrial fibrillation with controlled ventricular response. Continue amiodarone and Eliquis. Status post cardioversion that was only temporary successful in maintaining sinus rhythm. Cardiology started dobutamine due to renal failure with low EF. Pending transfer to [place] for LVAD consideration. Fernando catheter has been inserted for urine retention.
[2020-08-28] MEDS: Rosuvastatin 20 MG TAB PO SCH (22:21)
[2020-08-28] MEDS: HumaLOG 300 UNITS/3 ML VIAL SC PRN (22:21)
[2020-08-29] MEDS: DOBUTamine 500 mg/250 ml 500 MG in Premix Bag 1 BAG IVPB SCH (01:19)
[2020-08-29 04:33] LABS: #Neutrophils 10.3 thou/uL (1.40-6.50); %Eosinophils 0.2 % (0.0-10.0); %Lymphocytes 8.2 % (21.0-51.0); %Monocytes 8.4 % (0.0-10.0); %Neutrophils 83.1 % (42.0-75.0); Hemoglobin 13.1 g/dL (14.0-18.0); Mean Corpuscular Hemoglobin 28.4 pg (27.0-31.0); Mean Platelet Volume 11.3 fL (7.4-10.4); Platelet Count 102 thou/uL (130-400); RBC Distribution Width 16.5 % (11.5-14.5); Red Blood Cell (RBC) Count 4.62 mill/uL (4.70-6.10); White Blood Cell (WBC) Count 12.4 thou/uL (4.8-10.8)
[2020-08-29 04:46] LABS: Anion Gap 13 mmol/L (10-20); BUN (Urea Nitrogen) 33 mg/dL (8.4-25.7); Calc. Creatinine Clearance 31 mL/min (70-130); Calcium 8.6 mg/dL (7.8-10.44); Carbon Dioxide 24 mmol/L (23-31); Chloride 101 mmol/L (98-107); Magnesium 2.1 mg/dL (1.6-2.6); Potassium 3.8 mmol/L (3.5-5.1); Sodium 134 mmol/L (136-145)
[2020-08-29 04:50] LABS: Glucose 58 mg/dL (83-110)
[2020-08-29] MEDS: Dextrose 50% Abboject 50 ML SYRINGE SLOW IVP PRN (05:32)
[2020-08-29] MEDS: Mometasone 100 MCG/PUFF (1 INHALER) INH SCH ×2 (06:51→18:39)
[2020-08-29] MEDS ORDERED: Bumetanide 1 MG TAB PO SCH (07:30)
[2020-08-29] MEDS: Icosapent Ethyl 1 GM CAPSULE PO SCH ×2 (08:26→17:03)
[2020-08-29] MEDS: Apixaban 2.5 MG TAB PO SCH ×2 (08:27→20:25)
[2020-08-29] MEDS: Amiodarone 200 MG TAB PO SCH ×3 (08:27→20:25)
[2020-08-29] MEDS ORDERED: Potassium Chloride 20 MEQ TAB PO SCH (09:00)
[2020-08-29] MEDS: Insulin Glargine 25 UNITS in Pre-Filled Syringe 1 EACH SC SCH (10:35)
--- NOTE | 2020-08-29 11:59 | PRG ---
DATE OF SERVICE: 08/29/2020 SERVICE: Advanced Heart Failure Cardiology Consulting Service. SUBJECTIVE: Mr. Almonte had a good day. He is breathing easier. He says his coughing has completely dissipated. He generally feels a lot better. He has more energy level than last week before his prior admission. He was also able to sleep well. REVIEW OF SYSTEMS: GENERAL: There is no fever, chills, or productive cough. HEENT: There is no change in vision, hearing, or swallowing. PULMONARY: Please see HPI. CARDIAC: There are no chest pains or syncope. GI: There is no nausea, vomiting, or diarrhea. : He is able to urinate on his own. MUSCULOSKELETAL: There are no joint pains or muscle pains. INTEGUMENT: There are no skin breakdown. NEUROLOGIC: There are no focal deficits, weakness. CURRENT MEDICATIONS: 1. Amiodarone 200 mg 3 times a day. 2. Apixaban 2.5 mg b.i.d. 3. Bumex 1 mg daily. 4. Dobutamine, currently at 6 mcg/kg/minute. 5. Glargine insulin at 25 units. 6. Toprol-XL 12.5 mg p.o. q.12 hours. 7. K-Dur 20 mEq daily. 8. Rosuvastatin 40 mg p.o. at bedtime. Telemetry was reviewed. He is paced at 80 beats per minute. It is likely his underlying rhythm is atrial fibrillation. Since 80 beats per minute, the VVI mode switch for AFib. PHYSICAL EXAMINATION: VITAL SIGNS: His latest vitals are, heart rate 80, blood pressure 111/66. GENERAL: He is alert and conversational, reclining comfortably in bed without any acute distress. HEENT: Show EOMI. Oropharynx with somewhat dry mucosa. NECK: His JVP is about 9 cm. Positive hepatojugular reflux. PULMONARY: There is good air movement bilaterally, is clear to auscultation bilaterally, this is the best lung sounds yet. CARDIAC: Combination of regular and irregular rhythm. There is 2/6 holosystolic murmur at the apex with radiation to the left axilla. There is very soft 1/6 diastolic murmur at right sternal border, so he has mitral regurgitation and also aortic regurgitation. ABDOMEN: Soft, nontender. Positive bowel sounds. EXTREMITIES: Lower extremity are without edema. Then is a bit cool to touch. LABORATORY DATA: Sodium 134, potassium 3.8, chloride 101, bicarb 24, BUN 33, creatinine 1.77, this is improvement. His magnesium is 2.1. ASSESSMENT: 74-year-old gentleman resides in [place] Heart [employer] stage D and also [place] Heart Association class 4 heart failure with reduced ejection fraction. This is due to nonischemic cardiomyopathy. He has both systolic and diastolic dysfunction. He was admitted for acute decompensated heart failure. Currently, dobutamine 6 mcg/kg/minute seemed to be supplying with enough cardiac output. He does have cardiac renal syndrome. With dobutamine augmentation, that has improved. He has underlying atrial fibrillation. Amiodarone at 200 mg 3 times a day is keeping this in check. In the future, a cardioversion can be helpful. Right now the best chance for him for meaningful long-term survival will be urgent left ventricular assist device evaluation and implantation. He is waiting for ICU bed to be opened up at [facility]. RECOMMENDATIONS: Please see the following for my recommendations. 1. Continue dobutamine at 6 mcg/kg/minute. 2. Give him an extra dose of potassium chloride 20 mEq. 3. Continue with Bumex 1 mg daily. This currently seems to be sufficient. 4. At a future day when his creatinine improved some more then we might want to start very low-dose hydralazine. 5. We will attempt to inform [facility] that the patient only needs telemetry bed for transfer. Perhaps this would facilitate transfer process. However, if I see the best setting for him, then would have the way for ICU bed. It has been a pleasure taking care of Mr. Almonte. If any questions, please give me a call. The visitation time is 35 minutes. Job ID: [id number] MTDD
[2020-08-29] MEDS: HumaLOG 300 UNITS/3 ML VIAL SC PRN (12:44)
--- NOTE | 2020-08-29 14:34 | EKG ---
Test Reason : Blood Pressure : / mmHG Vent. Rate : 099 BPM Atrial Rate : 099 BPM P-R Int : 000 ms QRS Dur : 156 ms QT Int : 410 ms P-R-T Axes : 000 -28 172 degrees QTc Int : 526 ms Undetermined rhythm Left bundle branch block Abnormal ECG #[address] elevation/IL No SGARBOSSA Confirmed by BALAJI GARCÍA M.D. ([id number]), make up editor POOJA BARRIOS ([id number]) on 08/29/2020 2:34:33 PM Referred By: Confirmed By:BALAJI GARCÍA M.D.
--- NOTE | 2020-08-29 14:34 | EKG ---
Test Reason : Blood Pressure : / mmHG Vent. Rate : 111 BPM Atrial Rate : 111 BPM P-R Int : 000 ms QRS Dur : 158 ms QT Int : 364 ms P-R-T Axes : 000 -40 167 degrees QTc Int : 495 ms Undetermined rhythm Left axis deviation Left bundle branch block Abnormal ECG No ST elevation/UT No Sgarbossa Confirmed by BALAJI GARCÍA M.D. ([id number]), photographic editor POOJA BARRIOS ([id number]) on 08/29/2020 2:34:03 PM Referred By: Confirmed By:BALAJI GARCÍA M.D.
[2020-08-29 15:21] VITALS: TEMP 97.5
--- NOTE | 2020-08-29 15:36 | PDOC.HOSPP ---
- Subjective Subjective: no fever. had episode of hypoglycemia. no other acute event overnight. - Objective Vital Signs & Weight: Vital Signs (12 hours) Temp Pulse Resp BP BP Pulse Ox 08/29/20 15:00 97.5 F L 84 13 99/55 L 99 08/29/20 12:42 80 16 100 08/29/20 11:32 97.8 F 79 22 H 93/50 L 99 08/29/20 08:00 97.4 F L 80 19 142/63 H 98 08/29/20 06:52 98 08/29/20 06:51 78 16 98 08/29/20 04:34 97.6 F 82 20 104/67 99 08/29/20 03:39 99 Weight Weight 129 lb 12.8 oz I&O: 08/28/20 08/29/20 08/30/20 06:59 06:59 06:59 Intake Total 1058 1439 Output Total 2857 1920 Balance -1792 -481 Result Diagrams: 08/29/20 03:59 08/29/20 03:59 Additional Labs: Accuchecks 08/29/20 08/29/20 08/28/20 10:44 05:45 20:28 POC Glucose 177 H 244 H 204 H 08/28/20 08/28/20 16:54 16:20 POC Glucose 74 61 L Radiology Reviewed by me: Yes EKG Reviewed by me: Yes Hospitalist ROS - Medication Medications: Active Medications Generic Name Dose Route Start Last Admin Trade Name Freq PRN Reason Stop Dose Admin Acetaminophen 650 mg 08/20/20 18:33 08/26/20 20:13 Acetaminophen 325 Mg Tab PO 650 mg Q4H PRN Administration Headache/Fever/Mild Pain (1-3) Albuterol/Ipratropium 3 ml 08/21/20 01:00 08/29/20 12:42 Ipratropium/Albuterol Sulfate 3 Ml Neb NEB 3 ml [id number] DEV Administration Amiodarone HCl 200 mg 08/22/20 21:00 08/29/20 08:27 Amiodarone 200 Mg Tab PO 200 mg TID DEV Administration Apixaban 2.5 mg 08/21/20 21:00 08/29/20 08:27 Apixaban 2.5 Mg Tab PO 2.5 mg BID DEV Administration Bumetanide 1 mg 08/29/20 07:30 08/29/20 08:26 Bumetanide 1 Mg Tab PO 1 mg 30 DEV Administration Cosyntropin 250 mcg 08/26/20 20:00 08/27/20 01:11 Cosyntropin 250 Mcg Vial SLOW IVP 250 mcg WILLCALL DEV Administration Dextrose/Water 25 gm 08/20/20 18:34 08/29/20 05:32 Dextrose 50% Abboject 50 Ml Syringe SLOW IVP 25 gm PRN PRN Administration Hypoglycemia Dobutamine HCl/Dextrose 500 mg 250 mls @ 11.014 mls/hr 08/27/20 09:30 1 10/30/19 01:19 / Device IVPB 250 mls INF DEV Administration Protocol 6 MCG/KG/MIN Insulin Human Lispro 0 units 08/20/20 18:34 08/29/20 12:44 Humalog 300 Units/3 Ml Vial SC 2 unit .MODERATE SLIDING SC PRN Administration Moderate Correctional Scale Melatonin 6 mg 08/20/20 22:32 08/23/20 02:11 Melatonin 3 Mg Tab PO 6 mg HS PRN Administration Insomnia Metoprolol Succinate 12.5 mg 08/25/20 09:00 08/29/20 08:27 Metoprolol Succinate Xl 25 Mg Tab PO 12.5 mg Q12HR DEV Administration Miscellaneous Medication 1 gm 08/21/20 08:00 08/29/20 08:26 Icosapent Ethyl 1 Gm Capsule PO 1 gm BID-WM DEV Administration Mometasone Furoate 100 mcg 08/21/20 06:30 08/29/20 06:51 Mometasone 100 Mcg/Puff (1 Inhaler) INH 1 puff BID-RT DEV Administration Potassium Chloride 20 meq 08/29/20 09:00 08/29/20 08:27 Potassium Chloride 20 Meq Tab PO 20 meq DAILY DEV Administration Rosuvastatin Calcium 40 mg 08/20/20 21:00 08/28/20 22:21 Rosuvastatin 20 Mg Tab PO 40 mg MoThFr@2100 DEV Administration Sodium Chloride 10 ml 08/27/20 21:00 08/29/20 08:28 Flush - Normal Saline 10 Ml Syringe IVF 10 ml Q12HR DEV Administration Sodium Chloride 10 ml 08/27/20 09:30 08/27/20 09:40 Flush - Normal Saline 10 Ml Syringe IVF 10 ml PRN PRN Administration Saline Flush - Exam General Appearance: NAD Eye: PERRL ENT: normocephalic atraumatic Neck: supple Heart: RRR Respiratory: CTAB Gastrointestinal: soft, non-tender Skin: normal turgor Neurological: cranial nerve grossly intact Musculoskeletal: normal tone Psychiatric: normal affect, normal behavior, A&O x 3 Hosp A/P - Plan (1) Acute respiratory failure with hypoxia Code(s): J96.01 - ACUTE RESPIRATORY FAILURE WITH HYPOXIA Status: Acute (2) Atrial fibrillation with RVR Code(s): I48.91 - UNSPECIFIED ATRIAL FIBRILLATION Status: Acute (3) Right middle lobe pneumonia Code(s): J18.9 - PNEUMONIA, UNSPECIFIED ORGANISM Status: Acute (4) COPD exacerbation Code(s): J44.1 - CHRONIC OBSTRUCTIVE PULMONARY DISEASE W (ACUTE) EXACERBATION Status: Acute (5) Cardiomyopathy Code(s): I42.9 - CARDIOMYOPATHY, UNSPECIFIED Status: Acute (6) HTN (hypertension) Code(s): I10 - ESSENTIAL (PRIMARY) HYPERTENSION Status: Chronic Qualifiers: Hypertension type: essential hypertension Qualified Code(s): I10 - Es sential (primary) hypertension (7) Diabetes Code(s): E11.9 - TYPE 2 DIABETES MELLITUS WITHOUT COMPLICATIONS Status: Chronic Qualifiers: Diabetes mellitus type: type 2 Diabetes mellitus nursing home insulin use: with rn long term care use Diabetes mellitus complication status: with kidney complications Diabetes mellitus complication detail: with chronic kidney disease Chronic kidney disease stage: stage 3 (moderate) - Plan Hypoxia due to right middle and lower lobe pneumonia in the setting of COPD improved. Corticosteroids has been tapered off. Leukocytosis trending down. Chest x-ray showed improvement of the infiltrates. Procalcitonin is negative. Antibiotics discontinued. Atrial fibrillation with controlled ventricular response. Continue amiodarone and Eliquis. Status post cardioversion that was only temporary successful in maintaining sinus rhythm. Cardiology started dobutamine due to renal failure with low EF. d/t Lantus d/t recurrent hypoglycemia. Pending transfer to [facility] for LVAD consideration.
[2020-08-29 21:55] VITALS: BP 122/61
[2020-08-30] MEDS: DOBUTamine 500 mg/250 ml 500 MG in Premix Bag 1 BAG IVPB SCH (00:47)
--- NOTE | 2020-08-30 18:30 | PDOC.DS.DS ---
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 He came back the followi day with worsening dyspnea. Upon arrival, he was found hypoxic and in atrial fib with RVR. He was subsequently admitted to hospitalist service for decompensated acute on chronic combined heart failure. Cardiology was consulted. Patient was seen by EP as well as advanced heart failure cardiolo gist, Dr. Ro. During his hospital course, he underwent successful REGINA guided cardioversion. He was started on dobutamine 6 mcg/kg/min. He also developed cardiorenal syndrome; however, his renal function has improved with dobutamine augmentation. He is currently is on amiodarone at 200 mg 3 times daily for rhythm suppression. At this time, he has been accepted for transfer to [facility] for LVAD evaluation. Risk and benefit have been discussed with the patient in details. Resuscitation Status: 08/20/20 18:33 Resuscitation Status Routine Resuscitation Status: FULL: Full Resuscitation Discussed with: patient - Labs Lab Results: 08/29/20 03:59 08/29/20 03:59 Abnormal Lab Results - Last 48 hrs 08/29/20 03:59: Sodium 134 L, BUN 33 H, Creatinine 1.77 H 08/29/20 03:59: WBC 12.4 H, RBC 4.62 L, Hgb 13.1 L, Hct 41.1 L, RDW 16.5 H, Plt Count 102 L, MPV 11.3 H, Neutrophils % 83.1 H, Lymphocytes % 8.2 L, Neutrophils # 10.3 H, Lymphocytes # 1.0 L, Monocytes # 1.0 H 08/29/20 03:59: B-Natriuretic Peptide 2048.5 H Microbiology - Entire Visit 08/20/20 13:54 Venous blood - Left Arm Blood Culture - Final NO GROWTH IN 5 DAYS 08/20/20 13:54 Venous blood - Right Arm Blood Culture - Final NO GROWTH IN 5 DAYS 08/20/20 14:40 Urine clean catch Urine Culture - Final NO GROWTH AT 48 HOURS - Physical Exam Vitals: Weight Weight 129 lb 12.8 oz Physical Exam: The patient was seen and examined on the day of discharge. Problem - Discharge Plan Plan of Treatment: transfer to [facility]. continue DOBUTAMINE GTT AT 6MCK/KG/MIN.HH, LOW NA DIET- CONTINUE.CONTINUE SALCIDO CATHETER DUE TO RETENTION.ACCUCHECKS AC AND HS - Problem (1) Acute on chronic systolic (congestive) heart failure Code(s): I50.23 - ACUTE ON CHRONIC SYSTOLIC (CONGESTIVE) HEART FAILURE Status: Acute (2) Acute respiratory failure with hypoxia Code(s): J96.01 - ACUTE RESPIRATORY FAILURE WITH HYPOXIA Status: Acute (3) Acute worsening of stage 3 chronic kidney disease Code(s): N18.30 - CHRONIC KIDNEY DISEASE, STAGE 3 UNSPECIFIED Status: Acute (4) Anemia in chronic kidney disease Code(s): N18.9 - CHRONIC KIDNEY DISEASE, UNSPECIFIED; D63.1 - ANEMIA IN CHRONIC KIDNEY DISEASE Status: Acute (5) Atrial fibrillation with RVR Code(s): I48.91 - UNSPECIFIED ATRIAL FIBRILLATION Status: Acute (6) COPD exacerbation Code(s): J44.1 - CHRONIC OBSTRUCTIVE PULMONARY DISEASE W (ACUTE) EXACERBATION Status: Acute (7) Cardiomyopathy Code(s): I42.9 - CARDIOMYOPATHY, UNSPECIFIED Status: Acute (8) Right middle lobe pneumonia Code(s): J18.9 - PNEUMONIA, UNSPECIFIED ORGANISM Status: Acute (9) COPD (chronic obstructive pulmonary disease) Status: Chronic Qualifiers: Emphysema type: unspecified (10) Diabetes Code(s): E11.9 - TYPE 2 DIABETES MELLITUS WITHOUT COMPLICATIONS Status: Chronic Qualifiers: Diabetes mellitus type: type 2 Diabetes mellitus skilled nursing insulin use: with rat exterminator use Diabetes mellitus complication status: with kidney complications Diabetes mellitus complication detail: with chronic kidney disease Chronic kidney disease stage: stage 3 (moderate) Plan - Discharge Medications Home Medications: Medication Instructions Recorded Confirmed Type Rosuvastatin Calcium [Crestor] 40 mg PO SEEPHYS 05/24/13 08/21/20 History Fluticasone/Umeclidin/Vilanter 1 each IH DAILY 03/10/20 08/21/20 History [Trelegy Ellipta 100-62.5-25] Icosapent Ethyl [Vascepa] 1 gm PO BID-WM 03/10/20 08/21/20 History Apixaban [Eliquis] 5 tab PO BID 08/16/20 08/21/20 History Insulin Glargine,Hum.Rec.Anlog 25 units SQ BID 08/16/20 08/21/20 History [Lantus] Carvedilol [Coreg] 6.25 mg PO BID-WM #60 tab 08/19/20 08/21/20 Rx Cefdinir [Omnicef] 300 mg PO BID #14 cap 08/19/20 08/21/20 Rx Furosemide [Lasix] 40 mg PO DAILY #30 tablet 08/19/20 08/21/20 Rx Levofloxacin [Levaquin] 250 mg PO 0600 #7 tab 08/19/20 08/21/20 Rx methylPREDNISolone [Medrol] 4 mg PO SEEPHYS #1 tab.ds.pk 08/19/20 08/21/20 Rx Allergies: No Known Allergies Allergy (Verified 05/10/20 10:06) per pt - Discharge Instructions Discharge Instructions:: up with asst Activity:: Activity as Tolerated - Follow up Plan Referrals: Rocky Thmopson MD [Primary Care Provider] - Disposition: OTHER HOSPITAL INPT Quality - Care Measures CORE MEASURES:: HF
--- NOTE | 2020-09-01 03:08 | PQF ---
Dear : Brad Everett Date 09/01/2020 Please exercise your independent, professional judgment in responding to the clarification form. Clinical indicators are provided on the bottom of this form for your review Can you please further clarify if Sepsis is ruled in of ruled out? Sepsis [ X] Ruled in diagnosis [ ] Continue to treat [ X ] Resolved [ ] Ruled out diagnosis [ ] Improving [ ] Cannot rule out diagnosis [ ] Other diagnosis, please specify: [ ] Unable to determine Physician Signature: Date/Time: For continuity of documentation, please document condition throughout progress notes and discharge summary. Thank You. To be completed by CDI/Coding staff for physician review: Present Clinical Indicators - Signs / Symptoms / Labs Results and Location in Medical Record [ x ] VS: BP: 136/109, RR: 25, Pulse 98, T: 97.5 ED Provider pg.2 [ x ] Tachycardia ED Provider pg.3 [ x ] Differential diagnosis: Sepsis, anemia, electrolyte disturbance, Arrhythmia, [place], CHF exacerbation ED Provider pg.4 [ x ] WBC: 11.0H, 10.5, 17.2H, 14.7H, 15.1H, 15.3H, 13.5H, 12.4H Laboratory [ x ] Blood culture- No growth in 5 days Microbiology [ x ] Leukocytosis trending down Hospitalist PN pg.5 [ x ] Chest X rays showed improvement of the infiltrates Hospitalist PN pg.5 [ x ] Acute respiratory failure with hypoxia HP 08/20 [ x ] JANES DS 08/30 [ x ] Lactic Acid: 08/20=1.7 08/24=1.1 Laboratory 08/20 [ x ] Procalcitonin: 08/26=0.11 Laboratory 08/26 Present Risk Factors Results and Location in Medical Record [ x ] 74 years old H and P pg.1 [ x ] COPD H and P pg.1 [ x ] CHF H and P pg.1 [ x ] Pneumonia H and P pg.1 [ x ] CKD3 H and P pg.1 [ x ] DM H and P pg.1 Present Treatments Results and Location in Medical Record [ x ] IV Fluids MAR [ x ] WBC monitoring Laboratory [ x ] Blood culture Microbiology [ x ] Cefdinir 300mg PO MAR [ x ] Rocephin 2gm IV MAR [ x ] Azithromycin 500mg IV MAR [ x ] Levaquin 750mg Oral MAR 08/20 CDS/Configuration Management Architect Signature: Clint Woo Phone #: [phone] Date This is a permanent part of the Medical Record [facility]
== END 2020-08-30 01:09 | disposition short-term general hospital (02) | DRG 871 ==
LOC: ERS 13:11 → 2NO 17:05
PROVIDERS: ADMIT Hospitalist; ATTEND Family Medicine
PROC: 02HV33Z Insertion of Infusion Device into Superior Vena Cava, Percutaneous Approach (ICD-10-PCS; principal; 2020-08-25)
PROC: B548ZZA Ultrasonography of Superior Vena Cava, Guidance (ICD-10-PCS; 2020-08-25)
PROC: B24BZZ4 Ultrasonography of Heart with Aorta, Transesophageal (ICD-10-PCS; 2020-08-25)
PROC: 5A2204Z Restoration of Cardiac Rhythm, Single (ICD-10-PCS; 2020-08-25)
DX: A41.9 Sepsis, unspecified organism (principal); I50.43 Acute on chronic combined systolic (congestive) and diastolic (congestive) heart failure; J96.01 Acute respiratory failure with hypoxia; J18.9 Pneumonia, unspecified organism; I13.0 Hypertensive heart and chronic kidney disease with heart failure and stage 1 through stage 4 chronic kidney disease, or unspecified chronic kidney disease; N17.9 Acute kidney failure, unspecified; I47.2 Ventricular tachycardia; I42.8 Other cardiomyopathies; Z23 Encounter for immunization; Z20.828 Contact with and (suspected) exposure to other viral communicable diseases; N18.30 Chronic kidney disease, stage 3 unspecified; I48.0 Paroxysmal atrial fibrillation; D63.1 Anemia in chronic kidney disease; J43.9 Emphysema, unspecified; E11.22 Type 2 diabetes mellitus with diabetic chronic kidney disease; E78.5 Hyperlipidemia, unspecified; E78.00 Pure hypercholesterolemia, unspecified; I25.10 Atherosclerotic heart disease of native coronary artery without angina pectoris; E87.6 Hypokalemia; I08.3 Combined rheumatic disorders of mitral, aortic and tricuspid valves; E11.649 Type 2 diabetes mellitus with hypoglycemia without coma; E83.42 Hypomagnesemia; I49.3 Ventricular premature depolarization; Z79.4 Long term (current) use of insulin; Z95.810 Presence of automatic (implantable) cardiac defibrillator; Z79.01 Long term (current) use of anticoagulants; Z79.899 Other long term (current) drug therapy
CPT/HCPCS: 36415; 36416; 36569; 36600; 71045; 71250; 80048; 80053; 80400; 81003; 81015; 82550; 82553; 82565; 82805; 83605; 83690; 83735; 83880; 84132; 84145; 84443; 84484; 85014; 85018; 85025; 85049; 85610; 87040; 87086; 90471; 90662; 92960; 93005; 93312; 94640; 96365; 96366; 96375; C1751; G0008; J0282; J0456; J0696; J0834; J1160; J1250; J1644; J1815; J1940; J1956; J2704; J3475; J3480; J3490; J7050; J7070; J7509; J7620

== ENCOUNTER 2020-11-30 00:16 | Emergency (ER) | payer MEDICARE ==
[2020-11-30 01:16] LABS: #Lymphocytes 0.7 thou/uL (1.20-3.40); #Monocytes 0.4 thou/uL (0.11-0.59); %Eosinophils 0.2 % (0.0-10.0); %Lymphocytes 9.3 % (21.0-51.0); %Monocytes 5.5 % (0.0-10.0); %Neutrophils 85.1 % (42.0-75.0); Hemoglobin 10.1 g/dL (14.0-18.0); Mean Corpuscular HGB CONC 32.8 g/dL (32.0-36.0); Mean Corpuscular Hemoglobin 31.5 pg (27.0-31.0); Mean Corpuscular Volume 95.9 fL (78.0-98.0); Mean Platelet Volume 7.5 fL (7.4-10.4); Platelet Count 264 thou/uL (130-400); RBC Distribution Width 14.2 % (11.5-14.5); Red Blood Cell (RBC) Count 3.21 mill/uL (4.70-6.10); White Blood Cell (WBC) Count 7.1 thou/uL (4.8-10.8)
[2020-11-30 01:41] LABS: ALT (SGPT) 19 U/L (8-55); AST (SGOT) 13 U/L (5-34); Albumin 2.9 g/dL (3.4-4.8); Alkaline Phosphatase 97 U/L (40-110); Anion Gap 17 mmol/L (10-20); BUN (Urea Nitrogen) 34 mg/dL (8.4-25.7); Bilirubin, Total 0.3 mg/dL (0.2-1.2); Calc. Creatinine Clearance 0 mL/min (70-130); Calcium 9.1 mg/dL (7.8-10.44); Carbon Dioxide 16 mmol/L (23-31); Chloride 103 mmol/L (98-107); Globulin 4.2 g/dL (2.4-3.5); Glucose 189 mg/dL (83-110); Potassium 4.7 mmol/L (3.5-5.1); Protein, Total 7.1 g/dL (5.8-8.1); Sodium 131 mmol/L (136-145)
[2020-11-30 01:53] LABS: Bacteria/HPF 4+ HPF (None Seen); Bilirubin Negative (Negative); Blood, Urine 3+ (Negative); Clarity Turbid (Clear); Glucose, Urine (Dipstick) Normal (Negative); Ketone, Urine Negative (Negative); Leukocyte 250 Leu/uL (Negative); Nitrite Negative (Negative); Protein, Urine (Dipstick) 50 mg/dL (Neg-Trace); RBC/HPF Greater than 50 HPF (0-3); Specific Gravity, Urine 1.013 (1.002-1.036); Squamous Epithelial 0-3 HPF (0-3); Urobilinogen Normal mg/dL (Less than 2); WBC/HPF Greater than 50 HPF (0-3); pH, Urine 5.5 (5.0-9.0)
== END 2020-11-30 02:27 | disposition home or self-care (01) ==
LOC: ERS 00:16
DX: N39.0 Urinary tract infection, site not specified (principal); R33.9 Retention of urine, unspecified; E78.5 Hyperlipidemia, unspecified; E78.00 Pure hypercholesterolemia, unspecified; I10 Essential (primary) hypertension; J44.9 Chronic obstructive pulmonary disease, unspecified
CPT/HCPCS: 36415; 51702; 80053; 81003; 81015; 85025

== ENCOUNTER 2021-01-11 15:38 | Inpatient (IN) | payer MEDICARE ==
[~2021-01-11 15:38] MED LIST changes: -Heparin 1,000 UNITS/ML VIAL ONE; +Iopamidol-370 76% 500 ML 1 ML ONE
[2021-01-11 16:39] LABS: #Lymphocytes 0.8 thou/uL (1.20-3.40); #Monocytes 0.4 thou/uL (0.11-0.59); %Basophils 0.2 % (0.0-1.0); %Eosinophils 0.2 % (0.0-10.0); %Lymphocytes 6.9 % (21.0-51.0); %Monocytes 3.9 % (0.0-10.0); %Neutrophils 88.8 % (42.0-75.0); Hemoglobin 9.6 g/dL (14.0-18.0); Mean Corpuscular HGB CONC 31.1 g/dL (32.0-36.0); Mean Corpuscular Hemoglobin 30.2 pg (27.0-31.0); Mean Corpuscular Volume 97.2 fL (78.0-98.0); Mean Platelet Volume 8.8 fL (7.4-10.4); Platelet Count 168 thou/uL (130-400); RBC Distribution Width 15.4 % (11.5-14.5); Red Blood Cell (RBC) Count 3.17 mill/uL (4.70-6.10); White Blood Cell (WBC) Count 11.3 thou/uL (4.8-10.8)
[2021-01-11 16:40] LABS: SARS-CoV-2 NAA Rapid Test Not Detected (NotDetected)
[2021-01-11 16:54] LABS: Anion Gap 10 mmol/L (10-20); BUN (Urea Nitrogen) 26 mg/dL (8.4-25.7); Calc. Creatinine Clearance 0 mL/min (70-130); Carbon Dioxide 19 mmol/L (23-31); Chloride 110 mmol/L (98-107); Potassium 4.7 mmol/L (3.5-5.1); Sodium 134 mmol/L (136-145)
[2021-01-11 16:55] LABS: ALT (SGPT) 23 U/L (8-55); AST (SGOT) 12 U/L (5-34); Albumin 3.1 g/dL (3.4-4.8); Alkaline Phosphatase 109 U/L (40-110); Bilirubin, Total 0.3 mg/dL (0.2-1.2); CK (CPK) 46 U/L (30-200); Calcium 8.7 mg/dL (7.8-10.44); Globulin 3.3 g/dL (2.4-3.5); Glucose 241 mg/dL (83-110); Lipase 15 U/L (8-78); Protein, Total 6.4 g/dL (5.8-8.1)
[2021-01-11] MEDS ORDERED: Cefepime 2 GM VIAL ONE (17:07)
[2021-01-11] MEDS ORDERED: Vancomycin 1 GM/200 ML BAG ONE (17:07)
[2021-01-11] MEDS ORDERED: Aspirin Chewable 81 MG TAB ONE (19:03)
[2021-01-11] MEDS ORDERED: Dexamethasone 4 mg/ml Vial ONE (19:03)
[2021-01-11] MEDS ORDERED: Albuterol Sulfate 2.5 mg/3 ml Neb NEB PRN (19:58)
[2021-01-11] MEDS ORDERED: Acetaminophen 325 MG TAB PO PRN (19:59)
[2021-01-11] MEDS ORDERED: Ondansetron PF 4 MG/2 ML Vial IVP PRN (19:59)
[2021-01-11] MEDS ORDERED: Dextrose 50% Abboject 50 ML SYRINGE SLOW IVP PRN (20:04)
[2021-01-11] MEDS ORDERED: Dextrose 5% in Water 1,000 ML IV PRN (20:04)
[2021-01-11] MEDS ORDERED: Famotidine 20 MG TAB ONE (21:09)
[2021-01-11] MEDS: Famotidine 20 MG TAB PO SCH (21:19)
[2021-01-11] MEDS: Apixaban 5 MG TAB PO SCH (21:19)
[2021-01-11] MEDS: Bumetanide 1 MG/4 ML VIAL IVPB SCH (21:19)
[2021-01-12 05:03] LABS: #Lymphocytes 0.3 thou/uL (1.20-3.40); #Monocytes 0.1 thou/uL (0.11-0.59); #Neutrophils 8.8 thou/uL (1.40-6.50); %Eosinophils 0.3 % (0.0-10.0); %Lymphocytes 3.7 % (21.0-51.0); %Monocytes 1.1 % (0.0-10.0); %Neutrophils 94.8 % (42.0-75.0); Hemoglobin 9.6 g/dL (14.0-18.0); Mean Corpuscular HGB CONC 31.9 g/dL (32.0-36.0); Mean Corpuscular Hemoglobin 31.2 pg (27.0-31.0); Mean Corpuscular Volume 97.6 fL (78.0-98.0); Mean Platelet Volume 9.4 fL (7.4-10.4); Platelet Count 151 thou/uL (130-400); RBC Distribution Width 15.8 % (11.5-14.5); Red Blood Cell (RBC) Count 3.09 mill/uL (4.70-6.10); White Blood Cell (WBC) Count 9.2 thou/uL (4.8-10.8)
[2021-01-12 05:23] LABS: Anion Gap 15 mmol/L (10-20); BUN (Urea Nitrogen) 31 mg/dL (8.4-25.7); Calc. Creatinine Clearance 31 mL/min (70-130); Carbon Dioxide 18 mmol/L (23-31); Chloride 107 mmol/L (98-107); Glucose 361 mg/dL (83-110); Potassium 5.4 mmol/L (3.5-5.1); Sodium 135 mmol/L (136-145)
[2021-01-12] MEDS ORDERED: methylPREDNISolone Sod Succ 40 MG VIAL ONE (05:50)
[2021-01-12] MEDS ORDERED: Cefepime 2 GM VIAL ONE (05:50)
[2021-01-12] MEDS: methylPREDNISolone Sod Succ 40 MG VIAL IVP SCH ×3 (05:54→21:13)
[2021-01-12] MEDS ORDERED: Cefepime 2 GM in Sodium Chloride 0.9% 100 ML IVPB SCH (06:00)
[2021-01-12 07:58] LABS: Bacteria/HPF None Seen HPF (None Seen); Bilirubin Negative (Negative); Blood, Urine 1+ (Negative); Clarity Clear (Clear); Glucose, Urine (Dipstick) 500 mg/dL (Negative); Ketone, Urine Negative (Negative); Leukocyte Negative Leu/uL (Negative); Nitrite Negative (Negative); Protein, Urine (Dipstick) 30 mg/dL (Neg-Trace); RBC/HPF 0-3 HPF (0-3); Specific Gravity, Urine 1.027 (1.002-1.036); Squamous Epithelial 0-3 HPF (0-3); Urobilinogen Normal mg/dL (Less than 2); WBC/HPF 0-3 HPF (0-3)
[2021-01-12 08:57] LABS: Troponin I 0.041 ng/mL (< 0.028)
[2021-01-12] MEDS ORDERED: Furosemide 40 MG/4 ML VIAL ONE (09:08)
[2021-01-12] MEDS: Bumetanide 1 MG/4 ML VIAL IVPB SCH (09:11)
[2021-01-12] MEDS: Apixaban 5 MG TAB PO SCH ×2 (09:39→20:36)
[2021-01-12] MEDS: Amiodarone 200 MG TAB PO SCH (09:39)
[2021-01-12] MEDS: Metolazone 5 MG TAB PO SCH (10:28)
[2021-01-12] MEDS: HumaLOG 300 UNITS/3 ML VIAL SC PRN ×3 (12:27→20:37)
[2021-01-12] MEDS ORDERED: Furosemide 40 MG/4 ML VIAL SLOW IVP SCH (14:45)
[2021-01-12] MEDS: Cefepime 1 GM in Sodium Chloride 0.9% 100 ML IVPB SCH (18:28)
[2021-01-12] MEDS: Mirtazapine 15 MG TAB PO SCH (20:30)
[2021-01-12] MEDS: Famotidine 20 MG TAB PO SCH (20:30)
[2021-01-12] MEDS: Tamsulosin HCl 0.4 MG CAP PO SCH (20:37)
[2021-01-13] MEDS ORDERED: DOBUTamine 500 mg/250 ml 250 ML ONE (02:04)
[2021-01-13 05:51] LABS: #Lymphocytes 0.5 thou/uL (1.20-3.40); #Monocytes 0.4 thou/uL (0.11-0.59); #Neutrophils 12.8 thou/uL (1.40-6.50); %Eosinophils 0.2 % (0.0-10.0); %Lymphocytes 3.6 % (21.0-51.0); %Monocytes 3.2 % (0.0-10.0); Anion Gap 19 mmol/L (10-20); BUN (Urea Nitrogen) 45 mg/dL (8.4-25.7); Calc. Creatinine Clearance 27 mL/min (70-130); Calcium 9.5 mg/dL (7.8-10.44); Carbon Dioxide 17 mmol/L (23-31); Chloride 104 mmol/L (98-107); Glucose 115 mg/dL (83-110); Hemoglobin 9.5 g/dL (14.0-18.0); Mean Corpuscular HGB CONC 33.3 g/dL (32.0-36.0); Mean Corpuscular Hemoglobin 31.9 pg (27.0-31.0); Mean Corpuscular Volume 95.9 fL (78.0-98.0); Platelet Count 125 thou/uL (130-400); Potassium 4.3 mmol/L (3.5-5.1); RBC Distribution Width 15.7 % (11.5-14.5); Red Blood Cell (RBC) Count 2.99 mill/uL (4.70-6.10); Sodium 136 mmol/L (136-145); White Blood Cell (WBC) Count 13.7 thou/uL (4.8-10.8)
[2021-01-13] MEDS ORDERED: Furosemide 40 MG/4 ML VIAL SLOW IVP SCH ×2 (06:00→09:00)
[2021-01-13] MEDS: Cefepime 1 GM in Sodium Chloride 0.9% 100 ML IVPB SCH ×2 (06:14→17:18)
[2021-01-13] MEDS: methylPREDNISolone Sod Succ 40 MG VIAL IVP SCH ×3 (06:14→23:19)
[2021-01-13] MEDS: Glimepiride 1 MG TAB PO SCH ×2 (08:53→17:19)
[2021-01-13] MEDS: Amiodarone 200 MG TAB PO SCH (08:53)
[2021-01-13] MEDS: Apixaban 5 MG TAB PO SCH ×2 (08:53→20:23)
[2021-01-13] MEDS: Escitalopram Oxalate 10 mg Tablet PO SCH (08:54)
[2021-01-13] MEDS: Folic Acid 1 MG TAB PO SCH (08:54)
[2021-01-13] MEDS: Metolazone 5 MG TAB PO SCH (09:01)
[2021-01-13] MEDS ORDERED: Doxycycline 100 MG CAP PO SCH (09:30)
[2021-01-13] MEDS: HumaLOG 300 UNITS/3 ML VIAL SC PRN ×3 (10:51→20:28)
[2021-01-13] MEDS: hydrALAZINE 10 MG TAB PO SCH ×2 (14:03→23:19)
[2021-01-13] MEDS: Doxycycline 100 MG CAP PO SCH (20:23)
[2021-01-13] MEDS: Famotidine 20 MG TAB PO SCH (20:24)
[2021-01-13] MEDS: Tamsulosin HCl 0.4 MG CAP PO SCH (20:24)
[2021-01-13] MEDS: Mirtazapine 15 MG TAB PO SCH (20:24)
[2021-01-13] MEDS: Isosorbide Dinitrate 5 MG TAB PO SCH (20:24)
[2021-01-14] MEDS: DOBUTamine 500 mg/250 ml 500 MG in Premix Bag 1 BAG IVPB SCH (00:19)
[2021-01-14 04:58] LABS: #Lymphocytes 0.2 thou/uL (1.20-3.40); #Monocytes 0.3 thou/uL (0.11-0.59); #Neutrophils 13.7 thou/uL (1.40-6.50); %Eosinophils 0.1 % (0.0-10.0); %Lymphocytes 1.1 % (21.0-51.0); %Monocytes 2.1 % (0.0-10.0); %Neutrophils 96.7 % (42.0-75.0); Hemoglobin 8.9 g/dL (14.0-18.0); Mean Corpuscular HGB CONC 33.8 g/dL (32.0-36.0); Mean Corpuscular Hemoglobin 32.1 pg (27.0-31.0); Mean Corpuscular Volume 94.8 fL (78.0-98.0); Mean Platelet Volume 9.9 fL (7.4-10.4); Platelet Count 88 thou/uL (130-400); RBC Distribution Width 15.5 % (11.5-14.5); Red Blood Cell (RBC) Count 2.78 mill/uL (4.70-6.10); White Blood Cell (WBC) Count 14.2 thou/uL (4.8-10.8)
[2021-01-14 05:15] LABS: Anion Gap 15 mmol/L (10-20); BUN (Urea Nitrogen) 57 mg/dL (8.4-25.7); Calc. Creatinine Clearance 27 mL/min (70-130); Carbon Dioxide 25 mmol/L (23-31); Chloride 99 mmol/L (98-107); Glucose 181 mg/dL (83-110); Potassium 3.3 mmol/L (3.5-5.1); Sodium 136 mmol/L (136-145)
[2021-01-14] MEDS: HumaLOG 300 UNITS/3 ML VIAL SC PRN ×4 (05:37→20:29)
[2021-01-14] MEDS: Cefepime 1 GM in Sodium Chloride 0.9% 100 ML IVPB SCH ×2 (06:07→17:28)
[2021-01-14] MEDS: methylPREDNISolone Sod Succ 40 MG VIAL IVP SCH ×3 (06:07→20:29)
[2021-01-14] MEDS: hydrALAZINE 10 MG TAB PO SCH ×3 (06:07→20:27)
[2021-01-14] MEDS: Apixaban 5 MG TAB PO SCH (09:29)
[2021-01-14] MEDS: Isosorbide Dinitrate 5 MG TAB PO SCH ×2 (09:30→20:28)
[2021-01-14] MEDS: Folic Acid 1 MG TAB PO SCH (09:31)
[2021-01-14] MEDS: Doxycycline 100 MG CAP PO SCH ×2 (09:31→20:27)
[2021-01-14] MEDS: Glimepiride 1 MG TAB PO SCH ×2 (09:31→17:28)
[2021-01-14] MEDS: Escitalopram Oxalate 10 mg Tablet PO SCH (09:31)
[2021-01-14] MEDS ORDERED: Potassium Chloride 20 MEQ TAB PO SCH (10:15)
[2021-01-14] MEDS: Famotidine 20 MG TAB PO SCH (20:27)
[2021-01-14] MEDS: Tamsulosin HCl 0.4 MG CAP PO SCH (20:27)
[2021-01-14] MEDS: Apixaban 2.5 MG TAB PO SCH (20:27)
[2021-01-14] MEDS: Mirtazapine 15 MG TAB PO SCH (20:28)
[2021-01-15] MEDS: DOBUTamine 500 mg/250 ml 500 MG in Premix Bag 1 BAG IVPB SCH ×2 (03:33→22:16)
[2021-01-15 04:38] LABS: #Lymphocytes 0.2 thou/uL (1.20-3.40); #Monocytes 0.8 thou/uL (0.11-0.59); #Neutrophils 13.9 thou/uL (1.40-6.50); %Lymphocytes 1.5 % (21.0-51.0); %Monocytes 5.5 % (0.0-10.0); Hemoglobin 9.3 g/dL (14.0-18.0); Mean Corpuscular HGB CONC 32.5 g/dL (32.0-36.0); Mean Corpuscular Hemoglobin 31.2 pg (27.0-31.0); Mean Platelet Volume 10.5 fL (7.4-10.4); Platelet Count 77 thou/uL (130-400); RBC Distribution Width 15.7 % (11.5-14.5); Red Blood Cell (RBC) Count 2.98 mill/uL (4.70-6.10); White Blood Cell (WBC) Count 14.9 thou/uL (4.8-10.8)
[2021-01-15 04:39] LABS: Anion Gap 15 mmol/L (10-20); BUN (Urea Nitrogen) 54 mg/dL (8.4-25.7); Calc. Creatinine Clearance 28 mL/min (70-130); Calcium 9.5 mg/dL (7.8-10.44); Carbon Dioxide 23 mmol/L (23-31); Chloride 99 mmol/L (98-107); Glucose 227 mg/dL (83-110); Potassium 3.4 mmol/L (3.5-5.1); Sodium 134 mmol/L (136-145)
[2021-01-15] MEDS: HumaLOG 300 UNITS/3 ML VIAL SC PRN ×4 (06:32→22:24)
[2021-01-15] MEDS: methylPREDNISolone Sod Succ 40 MG VIAL IVP SCH ×3 (06:32→21:13)
[2021-01-15] MEDS: hydrALAZINE 10 MG TAB PO SCH ×3 (06:32→21:12)
[2021-01-15] MEDS: Cefepime 1 GM in Sodium Chloride 0.9% 100 ML IVPB SCH ×2 (09:13→17:06)
[2021-01-15] MEDS: Apixaban 2.5 MG TAB PO SCH ×2 (09:13→21:13)
[2021-01-15] MEDS: Glimepiride 1 MG TAB PO SCH ×2 (09:13→17:06)
[2021-01-15] MEDS: Losartan 25 MG TAB PO SCH (09:14)
[2021-01-15] MEDS: Folic Acid 1 MG TAB PO SCH (09:14)
[2021-01-15] MEDS: Doxycycline 100 MG CAP PO SCH ×2 (09:14→21:12)
[2021-01-15] MEDS: Isosorbide Dinitrate 5 MG TAB PO SCH ×2 (09:14→21:12)
[2021-01-15] MEDS: Escitalopram Oxalate 10 mg Tablet PO SCH (09:15)
[2021-01-15] MEDS: Famotidine 20 MG TAB PO SCH (21:12)
[2021-01-15] MEDS: Mirtazapine 15 MG TAB PO SCH (21:12)
[2021-01-15] MEDS: Tamsulosin HCl 0.4 MG CAP PO SCH (21:12)
[2021-01-16] MEDS: HumaLOG 300 UNITS/3 ML VIAL SC PRN ×4 (05:31→20:27)
[2021-01-16] MEDS: Cefepime 1 GM in Sodium Chloride 0.9% 100 ML IVPB SCH (05:32)
[2021-01-16] MEDS: methylPREDNISolone Sod Succ 40 MG VIAL IVP SCH (05:33)
[2021-01-16] MEDS: hydrALAZINE 10 MG TAB PO SCH (05:36)
[2021-01-16 07:00] LABS: Anion Gap 12 mmol/L (10-20); BUN (Urea Nitrogen) 42 mg/dL (8.4-25.7); Calc. Creatinine Clearance 32 mL/min (70-130); Calcium 9.2 mg/dL (7.8-10.44); Carbon Dioxide 23 mmol/L (23-31); Chloride 103 mmol/L (98-107); Glucose 186 mg/dL (83-110); Magnesium 2.1 mg/dL (1.6-2.6); Potassium 3.3 mmol/L (3.5-5.1); Sodium 135 mmol/L (136-145)
[2021-01-16 07:25] LABS: #Lymphocytes 0.2 thou/uL (1.20-3.40); #Monocytes 0.3 thou/uL (0.11-0.59); #Neutrophils 8.1 thou/uL (1.40-6.50); %Basophils 0.1 % (0.0-1.0); %Eosinophils 0.1 % (0.0-10.0); %Monocytes 3.8 % (0.0-10.0); %Neutrophils 94.1 % (42.0-75.0); Hemoglobin 9.6 g/dL (14.0-18.0); Mean Corpuscular HGB CONC 32.7 g/dL (32.0-36.0); Mean Corpuscular Hemoglobin 31.3 pg (27.0-31.0); Mean Corpuscular Volume 95.6 fL (78.0-98.0); Mean Platelet Volume 11.2 fL (7.4-10.4); Platelet Count 54 thou/uL (130-400); RBC Distribution Width 15.6 % (11.5-14.5); Red Blood Cell (RBC) Count 3.08 mill/uL (4.70-6.10); White Blood Cell (WBC) Count 8.6 thou/uL (4.8-10.8)
[2021-01-16] MEDS: Doxycycline 100 MG CAP PO SCH ×2 (08:19→20:25)
[2021-01-16] MEDS: Losartan 25 MG TAB PO SCH (08:19)
[2021-01-16] MEDS: Isosorbide Dinitrate 5 MG TAB PO SCH (08:19)
[2021-01-16] MEDS: Bumetanide 1 MG TAB PO SCH (08:19)
[2021-01-16] MEDS: Potassium Chloride 20 MEQ in Premix Bag 1 BAG IVPB SCH ×2 (08:19→10:32)
[2021-01-16] MEDS: Folic Acid 1 MG TAB PO SCH (08:19)
[2021-01-16] MEDS: Escitalopram Oxalate 10 mg Tablet PO SCH (08:20)
[2021-01-16] MEDS: Apixaban 2.5 MG TAB PO SCH ×2 (08:20→20:47)
[2021-01-16] MEDS ORDERED: predniSONE 20 MG TAB PO SCH (09:00)
[2021-01-16] MEDS: Glimepiride 1 MG TAB PO SCH ×2 (09:03→17:15)
[2021-01-16 17:18] LABS: Anion Gap 15 mmol/L (10-20); BUN (Urea Nitrogen) 41 mg/dL (8.4-25.7); Calc. Creatinine Clearance 29 mL/min (70-130); Calcium 9.1 mg/dL (7.8-10.44); Carbon Dioxide 24 mmol/L (23-31); Chloride 100 mmol/L (98-107); Glucose 291 mg/dL (83-110); Potassium 3.5 mmol/L (3.5-5.1); Sodium 135 mmol/L (136-145)
[2021-01-16] MEDS ORDERED: Potassium Chloride 20 MEQ TAB PO SCH (17:45)
[2021-01-16] MEDS: Tamsulosin HCl 0.4 MG CAP PO SCH (20:21)
[2021-01-16] MEDS: Famotidine 20 MG TAB PO SCH (20:24)
[2021-01-16] MEDS: Mirtazapine 15 MG TAB PO SCH (20:25)
[2021-01-16] MEDS: DOBUTamine 500 mg/250 ml 500 MG in Premix Bag 1 BAG IVPB SCH (23:43)
[2021-01-17 05:13] LABS: Anion Gap 13 mmol/L (10-20); BUN (Urea Nitrogen) 38 mg/dL (8.4-25.7); Calc. Creatinine Clearance 30 mL/min (70-130); Calcium 9.5 mg/dL (7.8-10.44); Carbon Dioxide 27 mmol/L (23-31); Chloride 99 mmol/L (98-107); Glucose 187 mg/dL (83-110); Magnesium 1.9 mg/dL (1.6-2.6); Potassium 3.4 mmol/L (3.5-5.1); Sodium 136 mmol/L (136-145)
[2021-01-17] MEDS: HumaLOG 300 UNITS/3 ML VIAL SC PRN ×4 (06:10→21:24)
[2021-01-17] MEDS ORDERED: Potassium Chloride 20 MEQ TAB PO SCH ×3 (08:00→17:00)
[2021-01-17] MEDS: Folic Acid 1 MG TAB PO SCH (08:34)
[2021-01-17] MEDS: predniSONE 20 MG TAB PO SCH (08:34)
[2021-01-17] MEDS: Doxycycline 100 MG CAP PO SCH (08:34)
[2021-01-17] MEDS: Bumetanide 1 MG TAB PO SCH (08:34)
[2021-01-17] MEDS: Escitalopram Oxalate 10 mg Tablet PO SCH (08:34)
[2021-01-17] MEDS: Glimepiride 1 MG TAB PO SCH ×2 (08:34→17:00)
[2021-01-17] MEDS ORDERED: Potassium Chloride 20 MEQ in Premix Bag 1 BAG IVPB SCH (11:45)
[2021-01-17] MEDS ORDERED: Magnesium 2 GM/50 ML 2 GM in Premix Bag 1 BAG IVPB SCH (11:45)
[2021-01-17 15:41] LABS: Anion Gap 16 mmol/L (10-20); BUN (Urea Nitrogen) 36 mg/dL (8.4-25.7); Calc. Creatinine Clearance 30 mL/min (70-130); Calcium 9.1 mg/dL (7.8-10.44); Carbon Dioxide 27 mmol/L (23-31); Chloride 96 mmol/L (98-107); Glucose 288 mg/dL (83-110); Potassium 4.5 mmol/L (3.5-5.1); Sodium 134 mmol/L (136-145)
[2021-01-17] MEDS: Mirtazapine 15 MG TAB PO SCH (20:01)
[2021-01-17] MEDS: Famotidine 20 MG TAB PO SCH (20:01)
[2021-01-17] MEDS: Tamsulosin HCl 0.4 MG CAP PO SCH (20:02)
[2021-01-17] MEDS: Apixaban 2.5 MG TAB PO SCH (20:02)
[2021-01-17] MEDS: DOBUTamine 500 mg/250 ml 500 MG in Premix Bag 1 BAG IVPB SCH (23:21)
[2021-01-18 04:43] LABS: #Lymphocytes 0.4 thou/uL (1.20-3.40); #Monocytes 0.8 thou/uL (0.11-0.59); #Neutrophils 11.1 thou/uL (1.40-6.50); %Lymphocytes 3.3 % (21.0-51.0); %Monocytes 6.2 % (0.0-10.0); %Neutrophils 90.5 % (42.0-75.0); Mean Corpuscular HGB CONC 32.4 g/dL (32.0-36.0); Mean Corpuscular Hemoglobin 31.3 pg (27.0-31.0); Mean Corpuscular Volume 96.5 fL (78.0-98.0); Mean Platelet Volume 10.7 fL (7.4-10.4); Platelet Count 68 thou/uL (130-400); RBC Distribution Width 15.8 % (11.5-14.5); Red Blood Cell (RBC) Count 3.85 mill/uL (4.70-6.10); White Blood Cell (WBC) Count 12.2 thou/uL (4.8-10.8)
[2021-01-18 04:52] LABS: Anion Gap 15 mmol/L (10-20); BUN (Urea Nitrogen) 33 mg/dL (8.4-25.7); Calc. Creatinine Clearance 28 mL/min (70-130); Calcium 9.3 mg/dL (7.8-10.44); Carbon Dioxide 27 mmol/L (23-31); Chloride 98 mmol/L (98-107); Glucose 210 mg/dL (83-110); Magnesium 2.5 mg/dL (1.6-2.6); Potassium 4.9 mmol/L (3.5-5.1); Sodium 135 mmol/L (136-145)
[2021-01-18] MEDS: HumaLOG 300 UNITS/3 ML VIAL SC PRN ×4 (06:03→20:44)
[2021-01-18] MEDS: Glimepiride 1 MG TAB PO SCH ×2 (07:57→17:46)
[2021-01-18] MEDS: Apixaban 2.5 MG TAB PO SCH ×2 (07:57→20:42)
[2021-01-18] MEDS: predniSONE 20 MG TAB PO SCH (07:57)
[2021-01-18] MEDS: Escitalopram Oxalate 10 mg Tablet PO SCH (07:58)
[2021-01-18] MEDS: Folic Acid 1 MG TAB PO SCH (07:59)
[2021-01-18] MEDS: Bumetanide 1 MG TAB PO SCH (07:59)
[2021-01-18] MEDS: Potassium Chloride 20 MEQ TAB PO SCH (07:59)
[2021-01-18] MEDS ORDERED: Potassium Chloride 20 MEQ TAB PO SCH (09:00)
[2021-01-18] MEDS: Mirtazapine 15 MG TAB PO SCH (20:42)
[2021-01-18] MEDS: Tamsulosin HCl 0.4 MG CAP PO SCH (20:42)
[2021-01-18] MEDS: Famotidine 20 MG TAB PO SCH (20:42)
[2021-01-18] MEDS: DOBUTamine 500 mg/250 ml 500 MG in Premix Bag 1 BAG IVPB SCH (23:20)
[2021-01-19 04:42] LABS: #Lymphocytes 0.6 thou/uL (1.20-3.40); #Monocytes 0.9 thou/uL (0.11-0.59); #Neutrophils 14.9 thou/uL (1.40-6.50); %Eosinophils 0.1 % (0.0-10.0); %Lymphocytes 3.5 % (21.0-51.0); %Monocytes 5.2 % (0.0-10.0); %Neutrophils 91.2 % (42.0-75.0); Hemoglobin 12.3 g/dL (14.0-18.0); Mean Corpuscular HGB CONC 31.3 g/dL (32.0-36.0); Mean Corpuscular Hemoglobin 30.3 pg (27.0-31.0); Mean Corpuscular Volume 96.7 fL (78.0-98.0); Mean Platelet Volume 11.7 fL (7.4-10.4); Platelet Count 57 thou/uL (130-400); RBC Distribution Width 15.7 % (11.5-14.5); Red Blood Cell (RBC) Count 4.06 mill/uL (4.70-6.10); White Blood Cell (WBC) Count 16.4 thou/uL (4.8-10.8)
[2021-01-19 04:53] LABS: Anion Gap 13 mmol/L (10-20); BUN (Urea Nitrogen) 44 mg/dL (8.4-25.7); Calc. Creatinine Clearance 29 mL/min (70-130); Carbon Dioxide 23 mmol/L (23-31); Chloride 101 mmol/L (98-107); Glucose 175 mg/dL (83-110); Magnesium 2.3 mg/dL (1.6-2.6); Sodium 132 mmol/L (136-145)
[2021-01-19] MEDS: HumaLOG 300 UNITS/3 ML VIAL SC PRN ×3 (06:22→22:04)
[2021-01-19] MEDS: predniSONE 20 MG TAB PO SCH (08:56)
[2021-01-19] MEDS: Glimepiride 1 MG TAB PO SCH ×2 (08:58→17:44)
[2021-01-19] MEDS: Apixaban 2.5 MG TAB PO SCH ×2 (08:58→22:11)
[2021-01-19] MEDS: Escitalopram Oxalate 10 mg Tablet PO SCH (08:58)
[2021-01-19] MEDS: Folic Acid 1 MG TAB PO SCH (08:59)
[2021-01-19] MEDS: Potassium Chloride 20 MEQ TAB PO SCH (08:59)
[2021-01-19 17:36] LABS: Lactic Acid 2.9 mmol/L (0.5-2.2)
[2021-01-19] MEDS: Famotidine 20 MG TAB PO SCH (22:09)
[2021-01-19] MEDS: Mirtazapine 15 MG TAB PO SCH (22:09)
[2021-01-19] MEDS: Tamsulosin HCl 0.4 MG CAP PO SCH (22:10)
[2021-01-19] MEDS: DOBUTamine 500 mg/250 ml 500 MG in Premix Bag 1 BAG IVPB SCH (22:50)
[2021-01-20 05:03] LABS: Anion Gap 14 mmol/L (10-20); BUN (Urea Nitrogen) 51 mg/dL (8.4-25.7); Calc. Creatinine Clearance 26 mL/min (70-130); Calcium 9.2 mg/dL (7.8-10.44); Carbon Dioxide 20 mmol/L (23-31); Chloride 99 mmol/L (98-107); Glucose 201 mg/dL (83-110); Magnesium 2.1 mg/dL (1.6-2.6); Potassium 4.7 mmol/L (3.5-5.1); Sodium 128 mmol/L (136-145)
[2021-01-20] MEDS: HumaLOG 300 UNITS/3 ML VIAL SC PRN ×4 (06:05→22:50)
[2021-01-20 06:31] LABS: #Lymphocytes 0.5 thou/uL (1.20-3.40); #Monocytes 0.5 thou/uL (0.11-0.59); #Neutrophils 13.6 thou/uL (1.40-6.50); %Eosinophils 0.1 % (0.0-10.0); %Lymphocytes 3.2 % (21.0-51.0); %Monocytes 3.4 % (0.0-10.0); %Neutrophils 93.2 % (42.0-75.0); Hemoglobin 13.1 g/dL (14.0-18.0); Mean Corpuscular Hemoglobin 30.9 pg (27.0-31.0); Mean Corpuscular Volume 96.6 fL (78.0-98.0); Mean Platelet Volume 12.1 fL (7.4-10.4); Platelet Count 23 thou/uL (130-400); RBC Distribution Width 15.3 % (11.5-14.5); Red Blood Cell (RBC) Count 4.24 mill/uL (4.70-6.10); White Blood Cell (WBC) Count 14.6 thou/uL (4.8-10.8)
[2021-01-20 06:32] LABS: Anisocytosis SLIGHT = 6-15 cells (100X) (0-5/hpf); MDiff Complete? YES; Platelet Morphology Comment Appears Decreased
[2021-01-20] MEDS: Apixaban 2.5 MG TAB PO SCH (08:28)
[2021-01-20] MEDS: Folic Acid 1 MG TAB PO SCH (08:28)
[2021-01-20] MEDS: predniSONE 20 MG TAB PO SCH (08:28)
[2021-01-20] MEDS: Escitalopram Oxalate 10 mg Tablet PO SCH (08:28)
[2021-01-20] MEDS: Glimepiride 1 MG TAB PO SCH ×2 (08:28→17:04)
[2021-01-20] MEDS: Potassium Chloride 20 MEQ TAB PO SCH (08:29)
[2021-01-20 13:21] VITALS: BMI 18.5
[2021-01-20] MEDS ORDERED: predniSONE 20 MG TAB PO SCH (15:30)
[2021-01-20] MEDS: Famotidine 20 MG TAB PO SCH (22:47)
[2021-01-20] MEDS: Tamsulosin HCl 0.4 MG CAP PO SCH (22:47)
[2021-01-20] MEDS: Mirtazapine 15 MG TAB PO SCH (22:47)
[2021-01-21] MEDS: DOBUTamine 500 mg/250 ml 500 MG in Premix Bag 1 BAG IVPB SCH (05:13)
[2021-01-21 05:14] LABS: #Lymphocytes 0.3 thou/uL (1.20-3.40); #Monocytes 0.5 thou/uL (0.11-0.59); %Basophils 0.2 % (0.0-1.0); %Eosinophils 0.1 % (0.0-10.0); %Monocytes 4.9 % (0.0-10.0); %Neutrophils 91.8 % (42.0-75.0); Hemoglobin 11.2 g/dL (14.0-18.0); Mean Corpuscular Hemoglobin 29.4 pg (27.0-31.0); Mean Corpuscular Volume 95.1 fL (78.0-98.0); Mean Platelet Volume 14.3 fL (7.4-10.4); Platelet Count 14 thou/uL (130-400); RBC Distribution Width 15.3 % (11.5-14.5); Red Blood Cell (RBC) Count 3.79 mill/uL (4.70-6.10); White Blood Cell (WBC) Count 10.9 thou/uL (4.8-10.8)
[2021-01-21 05:19] LABS: Anion Gap 12 mmol/L (10-20); BUN (Urea Nitrogen) 56 mg/dL (8.4-25.7); Calc. Creatinine Clearance 28 mL/min (70-130); Calcium 8.4 mg/dL (7.8-10.44); Carbon Dioxide 24 mmol/L (23-31); Chloride 99 mmol/L (98-107); Glucose 150 mg/dL (83-110); Potassium 4.7 mmol/L (3.5-5.1); Sodium 130 mmol/L (136-145)
[2021-01-21] MEDS: Escitalopram Oxalate 10 mg Tablet PO SCH (08:40)
[2021-01-21] MEDS: Folic Acid 1 MG TAB PO SCH (08:40)
[2021-01-21] MEDS: Glimepiride 1 MG TAB PO SCH ×2 (08:41→17:44)
[2021-01-21] MEDS: predniSONE 20 MG TAB PO SCH (08:41)
[2021-01-21] MEDS: Potassium Chloride 20 MEQ TAB PO SCH (08:41)
[2021-01-21] MEDS: Bumetanide 1 MG TAB PO SCH ×2 (12:14→12:17)
[2021-01-21] MEDS: HumaLOG 300 UNITS/3 ML VIAL SC PRN ×3 (12:47→20:45)
[2021-01-21] MEDS: Famotidine 20 MG TAB PO SCH (20:46)
[2021-01-21] MEDS: Mirtazapine 15 MG TAB PO SCH (20:46)
[2021-01-21] MEDS: Tamsulosin HCl 0.4 MG CAP PO SCH (20:46)
[2021-01-22] MEDS: DOBUTamine 500 mg/250 ml 500 MG in Premix Bag 1 BAG IVPB SCH (01:59)
[2021-01-22 04:45] LABS: #Lymphocytes 0.6 thou/uL (1.20-3.40); #Monocytes 0.7 thou/uL (0.11-0.59); #Neutrophils 9.9 thou/uL (1.40-6.50); %Eosinophils 0.1 % (0.0-10.0); %Lymphocytes 5.2 % (21.0-51.0); %Monocytes 5.8 % (0.0-10.0); Mean Corpuscular Hemoglobin 30.5 pg (27.0-31.0); Mean Corpuscular Volume 95.3 fL (78.0-98.0); Platelet Count 7 thou/uL (130-400); RBC Distribution Width 14.9 % (11.5-14.5); Red Blood Cell (RBC) Count 3.95 mill/uL (4.70-6.10); White Blood Cell (WBC) Count 11.1 thou/uL (4.8-10.8)
[2021-01-22 04:59] LABS: Anion Gap 11 mmol/L (10-20); BUN (Urea Nitrogen) 57 mg/dL (8.4-25.7); Calc. Creatinine Clearance 27 mL/min (70-130); Calcium 8.8 mg/dL (7.8-10.44); Carbon Dioxide 27 mmol/L (23-31); Chloride 98 mmol/L (98-107); Glucose 168 mg/dL (83-110); Potassium 4.9 mmol/L (3.5-5.1); Sodium 131 mmol/L (136-145)
[2021-01-22] MEDS: Escitalopram Oxalate 10 mg Tablet PO SCH (08:32)
[2021-01-22] MEDS: Folic Acid 1 MG TAB PO SCH (08:32)
[2021-01-22] MEDS: predniSONE 20 MG TAB PO SCH (08:32)
[2021-01-22] MEDS: Glimepiride 1 MG TAB PO SCH ×2 (08:32→17:13)
[2021-01-22] MEDS: HumaLOG 300 UNITS/3 ML VIAL SC PRN ×3 (12:59→21:08)
[2021-01-22] MEDS: Tamsulosin HCl 0.4 MG CAP PO SCH (21:07)
[2021-01-22] MEDS: Mirtazapine 15 MG TAB PO SCH (21:07)
[2021-01-22] MEDS: Famotidine 20 MG TAB PO SCH (21:08)
[2021-01-23] MEDS: DOBUTamine 500 mg/250 ml 500 MG in Premix Bag 1 BAG IVPB SCH (02:39)
[2021-01-23 04:59] LABS: #Basophils 0.2 thou/uL (0.0-0.2); #Lymphocytes 0.5 thou/uL (1.20-3.40); #Monocytes 0.6 thou/uL (0.11-0.59); #Neutrophils 8.3 thou/uL (1.40-6.50); %Basophils 1.8 % (0.0-1.0); %Eosinophils 0.2 % (0.0-10.0); %Monocytes 6.7 % (0.0-10.0); %Neutrophils 86.4 % (42.0-75.0); Hemoglobin 11.9 g/dL (14.0-18.0); Mean Corpuscular HGB CONC 32.9 g/dL (32.0-36.0); Mean Corpuscular Hemoglobin 31.5 pg (27.0-31.0); Mean Corpuscular Volume 95.8 fL (78.0-98.0); Mean Platelet Volume 14.6 fL (7.4-10.4); Platelet Count 8 thou/uL (130-400); RBC Distribution Width 15.1 % (11.5-14.5); Red Blood Cell (RBC) Count 3.78 mill/uL (4.70-6.10); White Blood Cell (WBC) Count 9.6 thou/uL (4.8-10.8)
[2021-01-23 05:10] LABS: Anion Gap 12 mmol/L (10-20); BUN (Urea Nitrogen) 51 mg/dL (8.4-25.7); Calc. Creatinine Clearance 32 mL/min (70-130); Calcium 8.7 mg/dL (7.8-10.44); Carbon Dioxide 24 mmol/L (23-31); Chloride 100 mmol/L (98-107); Glucose 75 mg/dL (83-110); Sodium 132 mmol/L (136-145)
[2021-01-23 08:14] VITALS: TEMP 98.3
[2021-01-23] MEDS: Glimepiride 1 MG TAB PO SCH (08:15)
[2021-01-23] MEDS: predniSONE 20 MG TAB PO SCH (08:15)
[2021-01-23] MEDS: Escitalopram Oxalate 10 mg Tablet PO SCH (08:15)
[2021-01-23] MEDS: Folic Acid 1 MG TAB PO SCH (08:15)
[2021-01-23] MEDS: HumaLOG 300 UNITS/3 ML VIAL SC PRN (11:53)
[2021-01-23 16:06] VITALS: BP 107/56
== END 2021-01-23 15:42 | disposition hospice, home (50) | DRG 871 ==
LOC: ERS 15:38 → IMCU/EMU 18:05 → ERHOLD 20:16 → IMCU/EMU 01-12 12:16 → 2NO 01-15 18:35
PROVIDERS: ADMIT Family Medicine; ATTEND Internal Medicine
PROC: 5A09357 Assistance with Respiratory Ventilation, Less than 24 Consecutive Hours, Continuous Positive Airway Pressure (ICD-10-PCS; principal; 2021-01-11)
PROC: 30233R1 Transfusion of Nonautologous Platelets into Peripheral Vein, Percutaneous Approach (ICD-10-PCS; 2021-01-22)
DX: A41.9 Sepsis, unspecified organism (principal); I50.43 Acute on chronic combined systolic (congestive) and diastolic (congestive) heart failure; J96.01 Acute respiratory failure with hypoxia; J18.9 Pneumonia, unspecified organism; E43 Unspecified severe protein-calorie malnutrition; Z51.5 Encounter for palliative care; Z66 Do not resuscitate; E87.1 Hypo-osmolality and hyponatremia; J44.1 Chronic obstructive pulmonary disease with (acute) exacerbation; L97.429 Non-pressure chronic ulcer of left heel and midfoot with unspecified severity; R64 Cachexia; Z68.1 Body mass index [BMI] 19.9 or less, adult; J44.0 Chronic obstructive pulmonary disease with (acute) lower respiratory infection; I47.2 Ventricular tachycardia; N17.9 Acute kidney failure, unspecified; I42.0 Dilated cardiomyopathy; R65.20 Severe sepsis without septic shock; Z20.822 Contact with and (suspected) exposure to COVID-19; N18.30 Chronic kidney disease, stage 3 unspecified; D69.6 Thrombocytopenia, unspecified; E88.09 Other disorders of plasma-protein metabolism, not elsewhere classified; I25.5 Ischemic cardiomyopathy; I48.0 Paroxysmal atrial fibrillation; E11.22 Type 2 diabetes mellitus with diabetic chronic kidney disease; E78.5 Hyperlipidemia, unspecified; D63.1 Anemia in chronic kidney disease; E11.621 Type 2 diabetes mellitus with foot ulcer; E87.6 Hypokalemia; I49.3 Ventricular premature depolarization; I44.7 Left bundle-branch block, unspecified; R77.8 Other specified abnormalities of plasma proteins; Y95 Nosocomial condition; I12.9 Hypertensive chronic kidney disease with stage 1 through stage 4 chronic kidney disease, or unspecified chronic kidney disease; T38.0X5A Adverse effect of glucocorticoids and synthetic analogues, initial encounter; D72.829 Elevated white blood cell count, unspecified; Z95.810 Presence of automatic (implantable) cardiac defibrillator; Z79.01 Long term (current) use of anticoagulants; Z87.891 Personal history of nicotine dependence; Z79.899 Other long term (current) drug therapy; Z79.84 Long term (current) use of oral hypoglycemic drugs; Z98.890 Other specified postprocedural states
CPT/HCPCS: 0240U; 36415; 36416; 36430; 71045; 71275; 80048; 80053; 81003; 81015; 82550; 82553; 83605; 83690; 83735; 83880; 84145; 84443; 84484; 85025; 85379; 86850; 86900; 86901; 87040; 93005; 93010; 93306; 94640; 94760; 96365; 96367; 96375; J0692; J1100; J1250; J1815; J1940; J2920; J3370; J3475; J3480; J3490; J7512; J7620; P9035; Q9967

== ENCOUNTER 2021-03-19 19:38 | Emergency (ER) | payer MEDICARE | END 2021-03-19 20:30 | disposition home or self-care (01) | LOC: ERS 19:38 | DX: T82.838A Hemorrhage due to vascular prosthetic devices, implants and grafts, initial encounter (principal); Z79.899 Other long term (current) drug therapy; Z79.01 Long term (current) use of anticoagulants; I11.0 Hypertensive heart disease with heart failure; I50.9 Heart failure, unspecified; E78.5 Hyperlipidemia, unspecified; E78.00 Pure hypercholesterolemia, unspecified; J44.9 Chronic obstructive pulmonary disease, unspecified | CPT/HCPCS: 93005 ==

== ENCOUNTER 2021-03-20 10:39 | Emergency (ER) | payer MEDICARE ==
[~2021-03-20 10:39] MED LIST changes: +Heparin 1,000 UNITS/ML VIAL ONE; -Iopamidol-370 76% 500 ML 1 ML ONE
[2021-03-20 11:33] LABS: #Eosinphils 0.1 thou/uL (0.0-0.7); #Lymphocytes 0.3 thou/uL (1.20-3.40); #Monocytes 0.5 thou/uL (0.11-0.59); #Neutrophils 9.3 thou/uL (1.40-6.50); %Basophils 0.2 % (0.0-1.0); %Eosinophils 0.7 % (0.0-10.0); %Lymphocytes 2.6 % (21.0-51.0); %Monocytes 5.1 % (0.0-10.0); %Neutrophils 91.4 % (42.0-75.0); Hemoglobin 10.4 g/dL (14.0-18.0); Mean Corpuscular Hemoglobin 30.9 pg (27.0-31.0); Mean Corpuscular Volume 96.7 fL (78.0-98.0); Mean Platelet Volume 14.8 fL (7.4-10.4); Platelet Count 24 thou/uL (130-400); RBC Distribution Width 20.7 % (11.5-14.5); Red Blood Cell (RBC) Count 3.36 mill/uL (4.70-6.10); White Blood Cell (WBC) Count 10.2 thou/uL (4.8-10.8)
== END 2021-03-20 16:20 | disposition home or self-care (01) ==
LOC: ERS 10:39
DX: T82.594A Other mechanical complication of infusion catheter, initial encounter (principal); S41.111A Laceration without foreign body of right upper arm, initial encounter; D69.6 Thrombocytopenia, unspecified; R58 Hemorrhage, not elsewhere classified; I11.0 Hypertensive heart disease with heart failure; I50.9 Heart failure, unspecified; E78.5 Hyperlipidemia, unspecified; E78.00 Pure hypercholesterolemia, unspecified; J44.9 Chronic obstructive pulmonary disease, unspecified; Z79.899 Other long term (current) drug therapy; Z79.01 Long term (current) use of anticoagulants; X58.XXXA Exposure to other specified factors, initial encounter
CPT/HCPCS: 36569; 85025; C1751; 36415

== ENCOUNTER 2021-03-22 18:02 | Inpatient (IN) | payer MEDICARE ==
[2021-03-22] MEDS ORDERED: Ondansetron PF 4 MG/2 ML Vial IVP PRN (23:10)
[2021-03-22] MEDS ORDERED: Acetaminophen 325 MG TAB PO PRN (23:10)
[2021-03-23] MEDS ORDERED: DOBUTamine 500 mg/250 ml 500 MG in Premix Bag 1 BAG IVPB SCH (01:15)
[2021-03-23] MEDS ORDERED: Dextrose 50% Abboject 50 ML SYRINGE SLOW IVP PRN (05:19)
[2021-03-23] MEDS ORDERED: Dextrose 5% in Water 1,000 ML IV PRN (05:19)
[2021-03-23 05:20] LABS: #Lymphocytes 0.4 thou/uL (1.20-3.40); #Monocytes 0.6 thou/uL (0.11-0.59); #Neutrophils 7.3 thou/uL (1.40-6.50); %Eosinophils 0.1 % (0.0-10.0); %Lymphocytes 4.6 % (21.0-51.0); %Monocytes 7.1 % (0.0-10.0); %Neutrophils 88.2 % (42.0-75.0); Hemoglobin 9.9 g/dL (14.0-18.0); Mean Corpuscular HGB CONC 31.9 g/dL (32.0-36.0); Mean Corpuscular Hemoglobin 30.7 pg (27.0-31.0); Mean Corpuscular Volume 96.2 fL (78.0-98.0); Mean Platelet Volume 13.8 fL (7.4-10.4); Platelet Count 30 thou/uL (130-400); RBC Distribution Width 21.2 % (11.5-14.5); Red Blood Cell (RBC) Count 3.23 mill/uL (4.70-6.10); White Blood Cell (WBC) Count 8.3 thou/uL (4.8-10.8)
[2021-03-23 05:37] LABS: Anion Gap 15 mmol/L (10-20); BUN (Urea Nitrogen) 35 mg/dL (8.4-25.7); Calc. Creatinine Clearance 33 mL/min (70-130); Calcium 8.5 mg/dL (7.8-10.44); Carbon Dioxide 16 mmol/L (23-31); Chloride 104 mmol/L (98-107); Glucose 79 mg/dL (83-110); Potassium 3.8 mmol/L (3.5-5.1); Sodium 131 mmol/L (136-145)
[2021-03-23 06:36] LABS: Hemoglobin A1c 5.6 % (4.0-6.0)
[2021-03-23 06:47] LABS: Lactic Acid 2.3 mmol/L (0.5-2.2)
[2021-03-23] MEDS: Ipratropium Bromide 2.5 ml Neb NEB SCH ×4 (07:16→19:06)
[2021-03-23] MEDS ORDERED: Electrolyte Replacement Protocol 1 EACH FS SCH (08:00)
[2021-03-23] MEDS: Folic Acid 1 MG TAB PO SCH (09:09)
[2021-03-23] MEDS: Tamsulosin HCl 0.4 MG CAP PO SCH (09:09)
[2021-03-23] MEDS: Senokot S 8.6-50 MG TAB PO SCH ×2 (09:09→20:44)
[2021-03-23] MEDS: Amiodarone 200 MG TAB PO SCH (09:09)
[2021-03-23] MEDS: Acetaminophen 325 MG TAB PO SCH ×2 (11:11→17:11)
[2021-03-23] MEDS ORDERED: Furosemide 40 MG/4 ML VIAL SLOW IVP SCH (13:30)
[2021-03-23] MEDS ORDERED: Potassium Chloride 20 MEQ TAB PO SCH (13:30)
[2021-03-23] MEDS: DOBUTamine 500 mg/250 ml 500 MG in Premix Bag 1 BAG IVPB SCH (17:52)
[2021-03-23] MEDS: Magnesium Oxide 400 MG TAB PO SCH (20:44)
[2021-03-24] MEDS: Acetaminophen 325 MG TAB PO SCH ×4 (00:48→16:15)
[2021-03-24 01:59] LABS: Bilirubin Negative (Negative); Blood, Urine Trace (Negative); Clarity Clear (Clear); Glucose, Urine (Dipstick) Normal (Negative); Ketone, Urine Negative (Negative); Leukocyte 25 Leu/uL (Negative); Nitrite Negative (Negative); Protein, Urine (Dipstick) Negative (Neg-Trace); RBC/HPF 21-50 HPF (0-3); Specific Gravity, Urine 1.008 (1.002-1.036); Squamous Epithelial 0-3 HPF (0-3); Urobilinogen Normal mg/dL (Less than 2); Yeast-Budding 2+ HPF (None Seen)
[2021-03-24 02:00] LABS: Bacteria/HPF 1+ HPF (None Seen)
[2021-03-24 05:38] LABS: #Lymphocytes 0.5 thou/uL (1.20-3.40); #Monocytes 0.6 thou/uL (0.11-0.59); #Neutrophils 7.6 thou/uL (1.40-6.50); %Basophils 0.1 % (0.0-1.0); %Eosinophils 0.3 % (0.0-10.0); %Lymphocytes 5.7 % (21.0-51.0); %Neutrophils 86.9 % (42.0-75.0); Hemoglobin 10.4 g/dL (14.0-18.0); Mean Corpuscular HGB CONC 31.4 g/dL (32.0-36.0); Mean Corpuscular Hemoglobin 30.9 pg (27.0-31.0); Mean Corpuscular Volume 98.4 fL (78.0-98.0); Mean Platelet Volume 13.5 fL (7.4-10.4); Platelet Count 30 thou/uL (130-400); RBC Distribution Width 21.4 % (11.5-14.5); Red Blood Cell (RBC) Count 3.35 mill/uL (4.70-6.10); White Blood Cell (WBC) Count 8.7 thou/uL (4.8-10.8)
[2021-03-24 06:01] LABS: Anion Gap 16 mmol/L (10-20); BUN (Urea Nitrogen) 33 mg/dL (8.4-25.7); Calc. Creatinine Clearance 33 mL/min (70-130); Carbon Dioxide 16 mmol/L (23-31); Chloride 105 mmol/L (98-107); Glucose 107 mg/dL (83-110); Magnesium 1.9 mg/dL (1.6-2.6); Potassium 3.6 mmol/L (3.5-5.1); Sodium 133 mmol/L (136-145)
[2021-03-24] MEDS ORDERED: Magnesium 2 GM/50 ML 2 GM in Premix Bag 1 BAG IVPB SCH ×2 (06:30→15:15)
[2021-03-24] MEDS: Ipratropium Bromide 2.5 ml Neb NEB SCH ×4 (07:05→19:06)
[2021-03-24] MEDS: Senokot S 8.6-50 MG TAB PO SCH ×2 (09:11→21:53)
[2021-03-24] MEDS: Tamsulosin HCl 0.4 MG CAP PO SCH (09:11)
[2021-03-24] MEDS: Amiodarone 200 MG TAB PO SCH (09:11)
[2021-03-24] MEDS: Magnesium Oxide 400 MG TAB PO SCH ×2 (09:11→21:53)
[2021-03-24] MEDS: Folic Acid 1 MG TAB PO SCH (09:11)
[2021-03-24] MEDS: DOBUTamine 500 mg/250 ml 500 MG in Premix Bag 1 BAG IVPB SCH (14:08)
[2021-03-24] MEDS ORDERED: Potassium Chloride 10 MEQ TAB PO SCH (15:15)
[2021-03-25] MEDS: Acetaminophen 325 MG TAB PO SCH ×4 (00:41→18:10)
[2021-03-25 05:27] LABS: #Lymphocytes 0.5 thou/uL (1.20-3.40); #Monocytes 0.5 thou/uL (0.11-0.59); #Neutrophils 10.6 thou/uL (1.40-6.50); %Basophils 0.2 % (0.0-1.0); %Eosinophils 0.1 % (0.0-10.0); %Lymphocytes 4.1 % (21.0-51.0); %Monocytes 4.1 % (0.0-10.0); %Neutrophils 91.5 % (42.0-75.0); Hemoglobin 9.9 g/dL (14.0-18.0); Mean Corpuscular Hemoglobin 31.1 pg (27.0-31.0); Mean Corpuscular Volume 97.3 fL (78.0-98.0); Mean Platelet Volume 12.3 fL (7.4-10.4); Platelet Count 27 thou/uL (130-400); RBC Distribution Width 21.4 % (11.5-14.5); Red Blood Cell (RBC) Count 3.19 mill/uL (4.70-6.10); White Blood Cell (WBC) Count 11.6 thou/uL (4.8-10.8)
[2021-03-25 05:47] LABS: Anion Gap 13 mmol/L (10-20); BUN (Urea Nitrogen) 30 mg/dL (8.4-25.7); Calc. Creatinine Clearance 36 mL/min (70-130); Calcium 8.1 mg/dL (7.8-10.44); Carbon Dioxide 19 mmol/L (23-31); Chloride 104 mmol/L (98-107); Glucose 96 mg/dL (83-110); Magnesium 2.8 mg/dL (1.6-2.6); Potassium 3.7 mmol/L (3.5-5.1); Sodium 132 mmol/L (136-145)
[2021-03-25] MEDS: Ipratropium Bromide 2.5 ml Neb NEB SCH ×4 (06:42→18:11)
[2021-03-25] MEDS: Folic Acid 1 MG TAB PO SCH (09:45)
[2021-03-25] MEDS: Potassium Chloride 10 MEQ TAB PO SCH (09:45)
[2021-03-25] MEDS: Senokot S 8.6-50 MG TAB PO SCH ×2 (09:45→21:43)
[2021-03-25] MEDS: Magnesium Oxide 400 MG TAB PO SCH ×2 (09:45→21:43)
[2021-03-25] MEDS: Amiodarone 200 MG TAB PO SCH (09:45)
[2021-03-25] MEDS: Tamsulosin HCl 0.4 MG CAP PO SCH (09:45)
[2021-03-25] MEDS: DOBUTamine 500 mg/250 ml 500 MG in Premix Bag 1 BAG IVPB SCH (10:04)
[2021-03-25] MEDS ORDERED: Furosemide 40 MG/4 ML VIAL SLOW IVP SCH (10:45)
[2021-03-25] MEDS ORDERED: Potassium Chloride 20 MEQ TAB PO SCH (11:00)
[2021-03-25] MEDS: HYDROcodone/Acetaminophen 5/325 mg Tablet PO PRN (14:17)
[2021-03-26] MEDS: Acetaminophen 325 MG TAB PO SCH ×4 (00:31→17:28)
[2021-03-26 05:54] LABS: Anion Gap 15 mmol/L (10-20); BUN (Urea Nitrogen) 29 mg/dL (8.4-25.7); Calc. Creatinine Clearance 36 mL/min (70-130); Calcium 8.3 mg/dL (7.8-10.44); Carbon Dioxide 21 mmol/L (23-31); Chloride 103 mmol/L (98-107); Glucose 106 mg/dL (83-110); Magnesium 2.4 mg/dL (1.6-2.6); Potassium 3.6 mmol/L (3.5-5.1); Sodium 135 mmol/L (136-145)
[2021-03-26 06:10] LABS: #Lymphocytes 0.4 thou/uL (1.20-3.40); #Monocytes 0.5 thou/uL (0.11-0.59); %Eosinophils 0.1 % (0.0-10.0); %Lymphocytes 3.6 % (21.0-51.0); %Monocytes 4.8 % (0.0-10.0); %Neutrophils 91.5 % (42.0-75.0); Hemoglobin 10.2 g/dL (14.0-18.0); Mean Corpuscular HGB CONC 31.5 g/dL (32.0-36.0); Mean Corpuscular Hemoglobin 30.8 pg (27.0-31.0); Mean Corpuscular Volume 97.8 fL (78.0-98.0); Mean Platelet Volume 14.2 fL (7.4-10.4); Platelet Count 23 thou/uL (130-400); RBC Distribution Width 21.6 % (11.5-14.5); Red Blood Cell (RBC) Count 3.31 mill/uL (4.70-6.10); White Blood Cell (WBC) Count 9.9 thou/uL (4.8-10.8)
[2021-03-26] MEDS: Ipratropium Bromide 2.5 ml Neb NEB SCH ×4 (06:54→18:43)
[2021-03-26] MEDS: DOBUTamine 500 mg/250 ml 500 MG in Premix Bag 1 BAG IVPB SCH (08:50)
[2021-03-26] MEDS: Potassium Chloride 10 MEQ TAB PO SCH (08:56)
[2021-03-26] MEDS: Magnesium Oxide 400 MG TAB PO SCH ×2 (08:56→20:25)
[2021-03-26] MEDS: Tamsulosin HCl 0.4 MG CAP PO SCH (08:56)
[2021-03-26] MEDS: Amiodarone 200 MG TAB PO SCH (08:56)
[2021-03-26] MEDS: Folic Acid 1 MG TAB PO SCH (08:56)
[2021-03-26] MEDS: Senokot S 8.6-50 MG TAB PO SCH ×2 (08:57→20:26)
[2021-03-26 10:29] VITALS: BMI 20.2
[2021-03-26] MEDS ORDERED: Torsemide 10 MG TAB PO SCH (11:45)
[2021-03-26] MEDS ORDERED: Potassium Chloride 20 MEQ TAB PO SCH (11:45)
[2021-03-26] MEDS: Dexamethasone 4 MG TAB PO SCH (17:13)
[2021-03-27] MEDS: Acetaminophen 325 MG TAB PO SCH ×4 (00:12→17:33)
[2021-03-27 05:29] LABS: #Lymphocytes 0.2 thou/uL (1.20-3.40); #Monocytes 0.1 thou/uL (0.11-0.59); #Neutrophils 5.8 thou/uL (1.40-6.50); %Eosinophils 0.1 % (0.0-10.0); %Lymphocytes 2.5 % (21.0-51.0); %Monocytes 0.8 % (0.0-10.0); %Neutrophils 96.5 % (42.0-75.0); Hemoglobin 9.6 g/dL (14.0-18.0); Mean Corpuscular HGB CONC 32.3 g/dL (32.0-36.0); Mean Corpuscular Hemoglobin 31.6 pg (27.0-31.0); Mean Corpuscular Volume 97.8 fL (78.0-98.0); Mean Platelet Volume 13.6 fL (7.4-10.4); Platelet Count 22 thou/uL (130-400); RBC Distribution Width 21.2 % (11.5-14.5); Red Blood Cell (RBC) Count 3.05 mill/uL (4.70-6.10)
[2021-03-27 06:31] LABS: Anion Gap 18 mmol/L (10-20); BUN (Urea Nitrogen) 27 mg/dL (8.4-25.7); Calc. Creatinine Clearance 33 mL/min (70-130); Calcium 8.2 mg/dL (7.8-10.44); Carbon Dioxide 18 mmol/L (23-31); Chloride 101 mmol/L (98-107); Glucose 122 mg/dL (83-110); Potassium 4.1 mmol/L (3.5-5.1); Sodium 133 mmol/L (136-145)
[2021-03-27] MEDS: Ipratropium Bromide 2.5 ml Neb NEB SCH ×4 (06:36→19:25)
[2021-03-27] MEDS ORDERED: hydrALAZINE 20 MG/ML VIAL SLOW IVP PRN (07:29)
[2021-03-27] MEDS ORDERED: Melatonin 3 MG TAB PO PRN (07:29)
[2021-03-27] MEDS ORDERED: Cepastat Lozenges 1 LOZ PO PRN (07:29)
[2021-03-27] MEDS ORDERED: Metoclopramide HCl 10 MG/2 ML VIAL IVP PRN (07:29)
[2021-03-27] MEDS ORDERED: Sodium Chloride 0.65% Nasal 44 ML BOT EA NARE PRN (07:29)
[2021-03-27] MEDS ORDERED: Loperamide HCl 2 MG CAP PO PRN (07:29)
[2021-03-27] MEDS ORDERED: GUAIFENESIN SF SOLN 200 MG/10 ML UDCUP PO PRN (07:29)
[2021-03-27] MEDS ORDERED: Bisacodyl 5 MG TAB PO PRN (07:29)
[2021-03-27] MEDS ORDERED: Benzonatate 100 MG CAP PO PRN (07:29)
[2021-03-27] MEDS ORDERED: Calcium Carbonate 500 MG ChewTAB PO PRN (07:29)
[2021-03-27] MEDS ORDERED: Loratadine 10 MG TAB PO PRN (07:29)
[2021-03-27] MEDS ORDERED: Simethicone Chewable 80 MG TAB PO PRN (07:30)
[2021-03-27] MEDS ORDERED: Torsemide 10 MG TAB PO SCH (09:00)
[2021-03-27] MEDS: Folic Acid 1 MG TAB PO SCH (09:17)
[2021-03-27] MEDS: Potassium Chloride 10 MEQ TAB PO SCH (09:17)
[2021-03-27] MEDS: Tamsulosin HCl 0.4 MG CAP PO SCH (09:17)
[2021-03-27] MEDS: Amiodarone 200 MG TAB PO SCH (09:18)
[2021-03-27] MEDS: Magnesium Oxide 400 MG TAB PO SCH ×2 (09:18→19:39)
[2021-03-27] MEDS: Senokot S 8.6-50 MG TAB PO SCH ×2 (09:23→19:39)
[2021-03-27] MEDS: Torsemide 10 MG TAB PO SCH (11:21)
[2021-03-27] MEDS: Dexamethasone 4 MG TAB PO SCH (17:10)
[2021-03-27] MEDS: HumaLOG 300 UNITS/3 ML VIAL SC PRN (17:27)
[2021-03-27] MEDS ORDERED: Electrolyte Replacement Protocol 1 EACH FS PRN (23:09)
[2021-03-27] MEDS: Albumin 25% 25 GM/100 ML BOT IVPB SCH (23:37)
[2021-03-28] MEDS: Acetaminophen 325 MG TAB PO SCH ×4 (05:11→17:21)
[2021-03-28 05:13] LABS: Anion Gap 18 mmol/L (10-20); BUN (Urea Nitrogen) 34 mg/dL (8.4-25.7); Calc. Creatinine Clearance 27 mL/min (70-130); Calcium 8.7 mg/dL (7.8-10.44); Carbon Dioxide 17 mmol/L (23-31); Chloride 100 mmol/L (98-107); Glucose 162 mg/dL (83-110); Magnesium 2.6 mg/dL (1.6-2.6); Potassium 4.6 mmol/L (3.5-5.1); Sodium 130 mmol/L (136-145); Uric Acid 6.9 mg/dL (3.5-7.2)
[2021-03-28 05:17] LABS: ALT (SGPT) 28 U/L (8-55); AST (SGOT) 13 U/L (5-34); Albumin 3.3 g/dL (3.4-4.8); Alkaline Phosphatase 76 U/L (40-110); Bilirubin, Direct 2.3 mg/dL (0.1-0.3); Bilirubin, Total 3.4 mg/dL (0.2-1.2); Phosphorus 3.1 mg/dL (2.3-4.7); Protein, Total 5.3 g/dL (5.8-8.1)
[2021-03-28 05:22] LABS: #Lymphocytes 0.3 thou/uL (1.20-3.40); #Monocytes 0.2 thou/uL (0.11-0.59); #Neutrophils 8.9 thou/uL (1.40-6.50); %Basophils 0.1 % (0.0-1.0); %Eosinophils 0.1 % (0.0-10.0); %Lymphocytes 2.8 % (21.0-51.0); %Monocytes 1.8 % (0.0-10.0); %Neutrophils 95.2 % (42.0-75.0); Hemoglobin 9.3 g/dL (14.0-18.0); Mean Corpuscular HGB CONC 31.7 g/dL (32.0-36.0); Mean Corpuscular Volume 97.5 fL (78.0-98.0); Mean Platelet Volume 13.9 fL (7.4-10.4); Platelet Count 24 thou/uL (130-400); RBC Distribution Width 21.1 % (11.5-14.5); Red Blood Cell (RBC) Count 3.01 mill/uL (4.70-6.10); White Blood Cell (WBC) Count 9.3 thou/uL (4.8-10.8)
[2021-03-28] MEDS: HumaLOG 300 UNITS/3 ML VIAL SC PRN ×2 (05:33→17:13)
[2021-03-28] MEDS: Ipratropium Bromide 2.5 ml Neb NEB SCH ×4 (07:00→18:22)
[2021-03-28] MEDS ORDERED: Melatonin 3 MG TAB PO PRN (07:26)
[2021-03-28] MEDS: Sodium Bicarbonate Tab 325 MG TAB PO SCH ×2 (08:48→20:19)
[2021-03-28] MEDS: Amiodarone 200 MG TAB PO SCH (08:48)
[2021-03-28] MEDS: Tamsulosin HCl 0.4 MG CAP PO SCH (08:48)
[2021-03-28] MEDS: Potassium Chloride 10 MEQ TAB PO SCH (08:48)
[2021-03-28] MEDS: Torsemide 10 MG TAB PO SCH (08:48)
[2021-03-28] MEDS: Folic Acid 1 MG TAB PO SCH (08:48)
[2021-03-28] MEDS: Magnesium Oxide 400 MG TAB PO SCH ×2 (08:48→20:19)
[2021-03-28] MEDS: Senokot S 8.6-50 MG TAB PO SCH ×2 (08:48→20:19)
[2021-03-28] MEDS: HYDROcodone/Acetaminophen 5/325 mg Tablet PO PRN ×2 (08:54→17:13)
[2021-03-28] MEDS: Albumin 25% 25 GM/100 ML BOT IVPB SCH (12:41)
[2021-03-28] MEDS: Dexamethasone 4 MG TAB PO SCH (17:20)
[2021-03-29] MEDS: Acetaminophen 325 MG TAB PO SCH ×4 (00:30→17:30)
[2021-03-29] MEDS: HumaLOG 300 UNITS/3 ML VIAL SC PRN ×2 (06:00→17:18)
[2021-03-29] MEDS: Ipratropium Bromide 2.5 ml Neb NEB SCH ×4 (07:34→19:18)
[2021-03-29] MEDS: Potassium Chloride 10 MEQ TAB PO SCH (09:14)
[2021-03-29] MEDS: Folic Acid 1 MG TAB PO SCH (09:14)
[2021-03-29] MEDS: Amiodarone 200 MG TAB PO SCH (09:14)
[2021-03-29] MEDS: Tamsulosin HCl 0.4 MG CAP PO SCH (09:14)
[2021-03-29] MEDS: Sodium Bicarbonate Tab 325 MG TAB PO SCH ×2 (09:14→20:36)
[2021-03-29] MEDS: Magnesium Oxide 400 MG TAB PO SCH ×2 (09:14→20:36)
[2021-03-29] MEDS: Senokot S 8.6-50 MG TAB PO SCH ×2 (09:15→20:36)
[2021-03-29] MEDS: Torsemide 10 MG TAB PO SCH (09:16)
[2021-03-29] MEDS ORDERED: ALPRAZolam 0.25 MG TAB PO PRN (09:24)
[2021-03-29] MEDS ORDERED: DOBUTamine 500 mg/250 ml 500 MG in Premix Bag 1 BAG IVPB SCH (09:45)
[2021-03-29 10:13] LABS: Hemoglobin 9.1 g/dL (14.0-18.0); Mean Corpuscular HGB CONC 32.7 g/dL (32.0-36.0); Mean Corpuscular Hemoglobin 31.3 pg (27.0-31.0); Mean Corpuscular Volume 95.8 fL (78.0-98.0); Platelet Count 22 thou/uL (130-400); RBC Distribution Width 21.4 % (11.5-14.5); White Blood Cell (WBC) Count 11.9 thou/uL (4.8-10.8)
[2021-03-29 10:25] LABS: ALT (SGPT) 24 U/L (8-55); AST (SGOT) 11 U/L (5-34); Albumin 3.6 g/dL (3.4-4.8); Alkaline Phosphatase 68 U/L (40-110); Anion Gap 20 mmol/L (10-20); BUN (Urea Nitrogen) 42 mg/dL (8.4-25.7); Bilirubin, Total 3.2 mg/dL (0.2-1.2); Calc. Creatinine Clearance 21 mL/min (70-130); Calcium 8.7 mg/dL (7.8-10.44); Carbon Dioxide 16 mmol/L (23-31); Chloride 96 mmol/L (98-107); Globulin 1.9 g/dL (2.4-3.5); Glucose 180 mg/dL (83-110); Magnesium 2.5 mg/dL (1.6-2.6); Potassium 4.7 mmol/L (3.5-5.1); Protein, Total 5.5 g/dL (5.8-8.1); Sodium 127 mmol/L (136-145)
[2021-03-29 10:39] LABS: #Lymphocytes 0.2 thou/uL (1.20-3.40); #Monocytes 0.3 thou/uL (0.11-0.59); #Neutrophils 11.3 thou/uL (1.40-6.50); %Lymphocytes 1.6 % (21.0-51.0); %Monocytes 2.9 % (0.0-10.0); %Neutrophils 95.5 % (42.0-75.0); Elliptocytes SLIGHT = 2-5 cells (100X) (0-1/hpf); Large Platelets MODERATE; MDiff Complete? YES; Platelet Morphology Comment Appears Decreased; Poikilocytosis SLIGHT = 6-15 cells (100X) (0-5/hpf); Polychromasia SLIGHT = 2-3 cells (100X) (0-2/hpf); Schistocytes SLIGHT = 2-5 cells (100X) (0-1/hpf); Tear Drops SLIGHT = 2-5 cells (100X) (0-1/hpf)
[2021-03-29] MEDS: Dexamethasone 4 MG TAB PO SCH (17:18)
[2021-03-30] MEDS: Acetaminophen 325 MG TAB PO SCH ×5 (00:01→23:44)
[2021-03-30 05:01] LABS: #Lymphocytes 0.1 thou/uL (1.20-3.40); #Monocytes 0.3 thou/uL (0.11-0.59); #Neutrophils 11.8 thou/uL (1.40-6.50); %Basophils 0.1 % (0.0-1.0); %Eosinophils 0.1 % (0.0-10.0); %Lymphocytes 0.8 % (21.0-51.0); %Monocytes 2.1 % (0.0-10.0); %Neutrophils 96.9 % (42.0-75.0); Hemoglobin 8.8 g/dL (14.0-18.0); Mean Corpuscular HGB CONC 31.5 g/dL (32.0-36.0); Mean Corpuscular Hemoglobin 30.4 pg (27.0-31.0); Mean Corpuscular Volume 96.3 fL (78.0-98.0); Mean Platelet Volume 14.3 fL (7.4-10.4); Platelet Count 16 thou/uL (130-400); RBC Distribution Width 21.6 % (11.5-14.5); Red Blood Cell (RBC) Count 2.89 mill/uL (4.70-6.10); White Blood Cell (WBC) Count 12.2 thou/uL (4.8-10.8)
[2021-03-30 05:13] LABS: Anion Gap 18 mmol/L (10-20); BUN (Urea Nitrogen) 47 mg/dL (8.4-25.7); Calc. Creatinine Clearance 21 mL/min (70-130); Calcium 8.7 mg/dL (7.8-10.44); Carbon Dioxide 16 mmol/L (23-31); Chloride 97 mmol/L (98-107); Glucose 178 mg/dL (83-110); Magnesium 2.6 mg/dL (1.6-2.6); Phosphorus 3.8 mg/dL (2.3-4.7); Potassium 5.2 mmol/L (3.5-5.1); Sodium 126 mmol/L (136-145)
[2021-03-30] MEDS: Ipratropium Bromide 2.5 ml Neb NEB SCH ×4 (08:06→18:43)
[2021-03-30] MEDS: Torsemide 10 MG TAB PO SCH (08:18)
[2021-03-30] MEDS: Magnesium Oxide 400 MG TAB PO SCH ×2 (08:18→20:58)
[2021-03-30] MEDS: Senokot S 8.6-50 MG TAB PO SCH ×2 (08:18→21:22)
[2021-03-30] MEDS: Sodium Bicarbonate Tab 325 MG TAB PO SCH ×2 (08:18→20:58)
[2021-03-30] MEDS: Potassium Chloride 10 MEQ TAB PO SCH (08:18)
[2021-03-30] MEDS: Folic Acid 1 MG TAB PO SCH (08:18)
[2021-03-30] MEDS: Amiodarone 200 MG TAB PO SCH (08:18)
[2021-03-30] MEDS: Tamsulosin HCl 0.4 MG CAP PO SCH (08:18)
[2021-03-30] MEDS ORDERED: Sodium Chloride 0.9% 250 ML 250 ML IVPB SCH (09:45)
[2021-03-30] MEDS ORDERED: Fludrocortisone Acetate 0.1 MG TAB PO SCH (09:45)
[2021-03-30] MEDS: HumaLOG 300 UNITS/3 ML VIAL SC PRN (11:03)
[2021-03-30] MEDS ORDERED: DOBUTamine 500 mg/250 ml 500 MG in Premix Bag 1 BAG IVPB SCH (12:00)
[2021-03-31 04:32] VITALS: BP 85/52; TEMP 96.8
[2021-03-31] MEDS: Acetaminophen 325 MG TAB PO SCH ×2 (05:34→12:38)
[2021-03-31] MEDS: Ipratropium Bromide 2.5 ml Neb NEB SCH ×3 (06:37→11:32)
[2021-03-31] MEDS ORDERED: Fludrocortisone Acetate 0.1 MG TAB PO SCH (09:00)
[2021-03-31] MEDS: Magnesium Oxide 400 MG TAB PO SCH (12:37)
[2021-03-31] MEDS: Amiodarone 200 MG TAB PO SCH (12:37)
[2021-03-31] MEDS: Folic Acid 1 MG TAB PO SCH (12:37)
[2021-03-31] MEDS: Potassium Chloride 10 MEQ TAB PO SCH (12:38)
[2021-03-31] MEDS: Sodium Bicarbonate Tab 325 MG TAB PO SCH (12:38)
[2021-03-31] MEDS: Senokot S 8.6-50 MG TAB PO SCH (12:38)
[2021-03-31] MEDS: Tamsulosin HCl 0.4 MG CAP PO SCH (12:38)
== END 2021-03-31 13:46 | disposition expired | DRG 813 ==
LOC: 2SE 19:34
PROVIDERS: ADMIT Family Medicine; ATTEND Internal Medicine
PROC: 05PYX3Z Removal of Infusion Device from Upper Vein, External Approach (ICD-10-PCS; 2021-03-22)
PROC: 05HY33Z Insertion of Infusion Device into Upper Vein, Percutaneous Approach (ICD-10-PCS; 2021-03-22)
PROC: 05HY33Z Insertion of Infusion Device into Upper Vein, Percutaneous Approach (ICD-10-PCS; 2021-03-22)
PROC: 30233R1 Transfusion of Nonautologous Platelets into Peripheral Vein, Percutaneous Approach (ICD-10-PCS; principal; 2021-03-30)
DX: D69.59 Other secondary thrombocytopenia (principal); I50.43 Acute on chronic combined systolic (congestive) and diastolic (congestive) heart failure; E43 Unspecified severe protein-calorie malnutrition; E87.2 Acidosis; I13.0 Hypertensive heart and chronic kidney disease with heart failure and stage 1 through stage 4 chronic kidney disease, or unspecified chronic kidney disease; I42.0 Dilated cardiomyopathy; N17.9 Acute kidney failure, unspecified; I48.0 Paroxysmal atrial fibrillation; E78.5 Hyperlipidemia, unspecified; J44.9 Chronic obstructive pulmonary disease, unspecified; N18.30 Chronic kidney disease, stage 3 unspecified; D63.1 Anemia in chronic kidney disease; L89.151 Pressure ulcer of sacral region, stage 1; Z20.822 Contact with and (suspected) exposure to COVID-19; Z66 Do not resuscitate; T44.5X5A Adverse effect of predominantly beta-adrenoreceptor agonists, initial encounter; R53.81 Other malaise; E11.22 Type 2 diabetes mellitus with diabetic chronic kidney disease; Z51.5 Encounter for palliative care; E11.51 Type 2 diabetes mellitus with diabetic peripheral angiopathy without gangrene; D50.9 Iron deficiency anemia, unspecified; Z79.01 Long term (current) use of anticoagulants; Z95.810 Presence of automatic (implantable) cardiac defibrillator; Z68.20 Body mass index [BMI] 20.0-20.9, adult
CPT/HCPCS: 36415; 36416; 36430; 36569; 71045; 80048; 80053; 80076; 81001; 83036; 83605; 83735; 83880; 84100; 84443; 84550; 85025; 86850; 86900; 86901; 93005; 94640; 99284; C1751; J1250; J1644; J1815; J1940; J2260; J3475; J7050; J8540; P9035; P9047